=== PATIENT | male | born 1950 | race Caucasian/White ===

== ENCOUNTER → 2018-01-11 | Outpatient (CLI) | payer MEDICARE ==
[~2018-01-11] MED LIST: ALPR0.5T PO; BICA50TA4 PO; CALC-656 PO; CIPR500S2 PO; CRAN450C PO; HYDR-3876 PO; HYOS0.1216 PO; LACT1CAP62 PO; LISD40CA3 PO; MULT1CAP27 PO; PHEN200T27 PO; SAW/1TAB2 PO; TAMS0.4C9 PO; ZOLP10TA5 PO; [UNRECOGNIZED DRUG - CODE] PO
== END ==
LOC: CR 14:09
PROVIDERS: ATTEND Nurse Practitioner Family
DX: J44.9 Chronic obstructive pulmonary disease, unspecified (principal)

== ENCOUNTER 2018-01-24 21:01 | Outpatient (CLI) | payer MEDICARE | END 2018-01-25 06:39 | disposition home or self-care (01) | LOC: SLEEP 21:01 | PROVIDERS: ATTEND Nurse Practitioner Family | DX: G47.10 Hypersomnia, unspecified (principal) | CPT/HCPCS: 95811 ==

== ENCOUNTER → 2018-04-04 | Outpatient (CLI) | payer MEDICARE ==
[~2018-04-04] MED LIST changes: +ALLO300T2 PO; +ASCO500C17 PO; +BICA50TA PO; +CALC-6 PO; +CETI10TA17 PO; +CHOL5000 PO; +DICL75TA2 PO; +FLUT1AER IH; +MELO7.5T46 PO; +OMEG1CAP58 PO; +RT-ALBUINH IH; +RT-ALBUTEROL SULF 2.5 MG/3 ML PRE-MIX VIAL INH ONE; +TAMS0.4C2 PO; +ZOLP5TAB7 PO
== END ==
LOC: RT 09:24
PROVIDERS: ATTEND Nurse Practitioner Family
DX: R91.1 Solitary pulmonary nodule (principal); J44.9 Chronic obstructive pulmonary disease, unspecified
CPT/HCPCS: 94060; 94726; 94729

== ENCOUNTER → 2018-04-12 | Outpatient (CLI) | payer MEDICARE ==
[~2018-04-12] MED LIST changes: -RT-ALBUTEROL SULF 2.5 MG/3 ML PRE-MIX VIAL INH ONE
[2018-04-12 12:33] LABS: BASOPHILS % (AUTO) 1 % (0-10); EOSINOPHILS # (AUTO) 0.3 10^3/uL (0.0-0.3); EOSINOPHILS % (AUTO) 4 % (0-10); HEMATOCRIT 44 % (40-54); HEMOGLOBIN 15.3 G/DL (13.3-17.7); LYMPHOCYTES # (AUTO) 1.3 X 10^3 (1.0-4.0); LYMPHOCYTES % (AUTO) 15 % (12-44); MEAN CORPUSCULAR HEMOGLOBIN 30 PG (25-34); MEAN CORPUSCULAR HGB CONC 35 G/DL (32-36); MEAN CORPUSCULAR VOLUME 85 FL (80-99); MEAN PLATELET VOLUME 8.4 FL (7.4-10.4); MONOCYTES # (AUTO) 0.8 X 10^3 (0.0-1.0); MONOCYTES % (AUTO) 10 % (0-12); NEUTROPHILS # (AUTO) 5.8 X 10^3 (1.8-7.8); NEUTROPHILS % (AUTO) 70 % (42-75); PLATELET COUNT 301 10^3/uL (130-400); RED BLOOD COUNT 5.12 10^6/uL (4.35-5.85); RED CELL DISTRIBUTION WIDTH 14.4 % (10.0-14.5); WHITE BLOOD COUNT 8.2 10^3/uL (4.3-11.0)
[2018-04-12 12:50] LABS: ALANINE AMINOTRANSFERASE 17 U/L (0-55); ALBUMIN 4.2 GM/DL (3.2-4.5); ALKALINE PHOSPHATASE 49 U/L (40-136); BILIRUBIN,TOTAL 0.6 MG/DL (0.1-1.0); BUN/CREATININE RATIO 21; CALCIUM 9.5 MG/DL (8.5-10.1); CARBON DIOXIDE 22 MMOL/L (21-32); CHLORIDE 107 MMOL/L (98-107); CREATININE SERUM 0.81 MG/DL (0.60-1.30); GFR ESTIMATED > 60; GLUCOSE 83 MG/DL (70-105); POTASSIUM 4.2 MMOL/L (3.6-5.0); SODIUM 138 MMOL/L (135-145); TOTAL PROTEIN 7.2 GM/DL (6.4-8.2)
[2018-04-12 12:56] LABS: ERYTHROCYTE SEDIMENTATION RATE 8 MM/HR (0-30)
== END ==
LOC: LAB 12:10
PROVIDERS: ATTEND Nurse Practitioner Family
DX: J44.9 Chronic obstructive pulmonary disease, unspecified (principal)
CPT/HCPCS: 36415; 80053; 82164; 85025; 85652; 86021; 86038; 86039; 86430

== ENCOUNTER 2018-04-25 05:33 | Outpatient (CLI) | payer MEDICARE ==
[~2018-04-25] VITALS: Ht 170.2 cm; Wt 90.7 kg
[~2018-04-25 05:33] MED LIST changes: -ALLO300T2 PO; -ASCO500C17 PO; -BICA50TA PO; -CALC-6 PO; -CETI10TA17 PO; -CHOL5000 PO; -DICL75TA2 PO; -FLUT1AER IH; -MELO7.5T46 PO; -OMEG1CAP58 PO; -RT-ALBUINH IH; -TAMS0.4C2 PO; -ZOLP5TAB7 PO
[2018-04-25] MEDS ORDERED: TAMS0.4C2 PO (15:50)
[2018-04-25] MEDS ORDERED: BICA50TA PO (15:50)
[2018-04-25] MEDS ORDERED: ZOLP5TAB7 PO (15:50)
[2018-04-25] MEDS ORDERED: MULT1CAP27 PO (15:50)
[2018-04-25] MEDS ORDERED: CALC-6 PO (15:50)
[2018-04-25] MEDS ORDERED: FLUT1AER IH (15:54)
[2018-04-25] MEDS ORDERED: ASCO500C17 PO (15:54)
[2018-04-25] MEDS ORDERED: MELO7.5T46 PO (15:54)
[2018-04-25] MEDS ORDERED: ALLO300T2 PO (15:54)
[2018-04-25] MEDS ORDERED: RT-ALBUINH IH (15:54)
[2018-04-25] MEDS ORDERED: CHOL5000 PO (15:54)
[2018-04-25] MEDS ORDERED: CETI10TA17 PO (15:54)
[2018-04-25] MEDS ORDERED: DICL75TA2 PO (15:54)
[2018-04-25] MEDS ORDERED: OMEG1CAP58 PO (15:54)
== END 2018-04-25 15:55 ==
LOC: PREOP 05:33
PROVIDERS: ATTEND Internal Medicine Critical Care Medicine
DX: Z01.818 Encounter for other preprocedural examination (principal)

== ENCOUNTER → 2018-06-13 | Outpatient (CLI) | payer MEDICARE ==
[~2018-06-13] MED LIST changes: +ALLO300T2 PO; +ASCO500C17 PO; +BICA50TA5 PO; +CALC-6 PO; +CATHETER FLUSH 10 ML SYR IV PRN; +CETI10TA17 PO; +CHOL5000 PO; +DICL75TA2 PO; +FLUT1AER IH; +IOHEXOL 350 MG/ML 150 ML (OMNIPAQUE 350) VIAL IV ONE; +MELO7.5T46 PO; +NS 250 ML (IVPB) BAG IV ONE; +OMEG1CAP58 PO; +RECEIVED CONTRAST (Hold Metformin) IV SCH; +RT-ALBUINH IH; +TAMS0.4C2 PO; +ZOLP5TAB7 PO
[2018-06-13 11:44] LABS: BUN/CREATININE RATIO 19; CREATININE SERUM 0.86 MG/DL (0.60-1.30); GFR ESTIMATED > 60
--- NOTE | 2018-06-13 15:45 | Diagnostic Imaging Report ---
PROCEDURE: CT angiography of the chest with contrast. TECHNIQUE: Multiple contiguous axial images were obtained through the chest after uneventful bolus administration of intravenous contrast. Reconstructed CTA MIP acquisitions were also performed. INDICATION: Pulmonary fibrosis, shortness of breath, history of adenoid cystic carcinoma. FINDINGS: The previous CT chest exam of 04/04/2018 noted interstitial fibrotic changes involving both lungs as well as bilateral lower lobe bronchiectasis. On this exam, those chronic pulmonary changes are again evident and do not seem to have progressed. There is no abnormal density involving the lungs that would suggest an area of acute pneumonia/atelectasis superimposed on the underlying chronic pulmonary disease. There is no sign of a pleural effusion either. The heart size is not enlarged and stable when compared to the prior exam. There is no defect within the pulmonary arteries to indicate a pulmonary embolus. The aorta is not abnormally dilated, and there is no sign of a dissection. The previous study did note a 9 mm pretracheal lymph node. That finding is again evident and no different. There is no mediastinal or hilar adenopathy noted. The thyroid gland is unremarkable. There is increased density in both retroareolar regions. This finding is similar to the prior exam and most likely represents gynecomastia. The sections through the upper abdomen fail to show any sign of an acute abnormality. The bone windows are unremarkable for a fracture or for a destructive lesion. IMPRESSION: 1. There is no evidence for an acute cardiopulmonary abnormality. In particular, there is no sign of a dissection or of a pulmonary embolus. 2. The chronic pulmonary changes seen on the prior study are again evident and no different. 3. The increased density in the retroareolar regions does suggest gynecomastia. Dictated by: Dictated on workstation # [id number]
== END ==
LOC: CARD 11:06
PROVIDERS: ATTEND Nurse Practitioner Family
DX: J98.4 Other disorders of lung (principal); J43.9 Emphysema, unspecified; A49.01 Methicillin susceptible Staphylococcus aureus infection, unspecified site; R00.1 Bradycardia, unspecified; R42 Dizziness and giddiness
CPT/HCPCS: 36415; 71275; 82565; 84520; 93306

== ENCOUNTER 2018-07-05 11:19 | Outpatient (RCR) | payer MEDICARE ==
[~2018-07-05 11:19] MED LIST changes: -CATHETER FLUSH 10 ML SYR IV PRN; -IOHEXOL 350 MG/ML 150 ML (OMNIPAQUE 350) VIAL IV ONE; -NS 250 ML (IVPB) BAG IV ONE; -RECEIVED CONTRAST (Hold Metformin) IV SCH
== END 2018-07-20 | disposition home or self-care (01) ==
LOC: CARD 11:19
PROVIDERS: ATTEND Internal Medicine Interventional Cardiology
DX: J44.9 Chronic obstructive pulmonary disease, unspecified (principal); R42 Dizziness and giddiness; R55 Syncope and collapse; E66.9 Obesity, unspecified; G47.33 Obstructive sleep apnea (adult) (pediatric); R06.02 Shortness of breath
CPT/HCPCS: 93225; 93226

== ENCOUNTER → 2018-07-25 | Outpatient (CLI) | payer MEDICARE ==
--- NOTE | 2018-07-25 09:45 | Diagnostic Imaging Report ---
PROCEDURE: CT chest without contrast. TECHNIQUE: Multiple contiguous axial images were obtained through the chest without the use of intravenous contrast. INDICATION: Restrictive lung disease and COPD. Comparison is made to study of 06/13/2018. FINDINGS: Similar to the previous study, there are prominent interstitial markings with a subpleural predominance. Mild basilar atelectasis is seen in the lower lobes similar to the previous examination. Mildly prominent mediastinal lymph nodes are also stable. There is no evidence of focal consolidation or significant pleural or pericardial fluid. IMPRESSION: Emphysema and predominantly peripheral fibrotic change in both lungs. No new abnormality or significant adverse development is appreciated. Dictated by: Dictated on workstation # [id number]
== END ==
LOC: RAD 09:07
PROVIDERS: ATTEND Nurse Practitioner Family
DX: J43.9 Emphysema, unspecified (principal); J98.4 Other disorders of lung; A49.01 Methicillin susceptible Staphylococcus aureus infection, unspecified site
CPT/HCPCS: 71250

== ENCOUNTER → 2018-07-26 | Day surgery (SDC) | payer MEDICARE ==
[~2018-07-26] VITALS: Ht 170.2 cm; Wt 99.8 kg
[~2018-07-26] MED LIST changes: +LIDOCAINE 1% INJ 20 ML 20 ML VIAL ONE
[2018-07-26 09:27] VITALS: BP 143/72
--- NOTE | 2018-07-26 10:19 | Implantation of Loop Monitor ---
Implant of Loop Monitior PROCEDURE PHYSICIAN: Simba Brito MD IMPLANTATION OF LOOP MONITOR REPORT DATE OF PROCEDURE: 07/26/18 ATTENDING PHYSICIAN: Dr. Marin Brito. REFERRING PHYSICIAN: PERFORMING PHYSICIAN: Dr. Marin Brito. INDICATION: Long-term surveillance of atrial fibrillation, Syncope. PREOP DIAGNOSIS: Long-term surveillance of atrial fibrillation, Syncope POSTOP DIAGNOSIS: Atrial fibrillation, s/p implantation of loop recorder. PROCEDURE DETAILS: The patient is a 67 male with history of paroxysmal atrial fibrillation requiring long-term surveillance. Therefore implantable loop recorder was discussed and agreed with the patient. Informed consent was taken. All risks and complications were discussed at length. The patient was draped and prepped in the usual sterile fashion. Local anesthesia was lidocaine, which was given in the substernal area close to the 4th intercostal space. Loop monitor was implanted according to the protocol. Steri-Strips were placed at the end of the procedure. There were no complications and the patient tolerated the procedure well. ANESTHESIA: Local anesthesia with lidocaine. COMPLICATIONS: None CONTRAST/FLUOROSCOPY: None CONCLUSION: 1. Successful implantation of loop monitor for atrial fibrillation. 2. No complication and the patient tolerated the procedure well. Simba rBito MD, [facility], CCDS Cardiac Electrophysiology Kiera BRITO MD Jul 26, 2018 10:19 am
[2018-07-26 10:48] VITALS: BP 121/71
--- OUTSIDE RECORDS SUMMARY | 2018-07-26 14:38 | XMS REPORT | Clinical Summary ---
Author Author [facility] Organization [facility] Address Unknown Phone Unavailable Care Team Providers Care Title Assistant Name Role Phone SamanthaRita PCP Unavailable Silvia Hall MD Unavailable Source Comments Some departments are not documenting in the electronic medical record. If you do not see the information that you expected, contact Release of Information in the Health Information Management department at [phone] for further assistance in locating additional records.[facility] Allergies No Known Allergies Current Medications Prescription Sig. Disp. Refills Start End Date Status Date allopurinol (ZYLOPRIM) Take 300 mg by mouth Active 300 mg tablet daily. tamsulosin (FLOMAX) 0.4 Take 0.4 mg by mouth Active mg capsule daily. diclofenac potassium Take 50 mg by mouth daily Active (CATAFLAM) 50 mg Tab as needed. ibuprofen (MOTRIN) 800 mg Take 800 mg by mouth Active tablet every 6 hours as needed. cyclobenzaprine Take 5 mg by mouth three Active (FLEXERIL) 5 mg tablet times daily. Cranberry Extract 300 mg Take by mouth. Active Tab RESVERATROL PO Take 60 mg by mouth Active daily. CETIRIZINE HCL (ZYRTEC Take by mouth as Needed. Active PO) albuterol (PROAIR HFA) 90 Inhale 2 Puffs by mouth Active mcg/actuation inhaler every 6 hours as needed. LACTOBACILLUS ACIDOPHILUS Take by mouth. Active (ACIDOPHOLUS PO) Active Problems Problem Noted Date Prostate cancer (HCC) 06/26/2013 Overview: PSA (Nov 2012)=1.9 ng/mL. PNBx (06/26/2013): cT2c; (L) [place] 5+5=10, 4/6 cores, 5-80%; (L) [place] 5+4=9, 1/6 cores, 25%; (R) [place] 5+5=10, 2/6 cores, 40-90%, (R) [place] 4+5=9, 4/6 cores, 5-90%; Dr. Mclaughlin. CT Scan (07/08/2013): No evidence of mets. Bone Scan (07/08/2013): No evidence of bone mets. L ast Assessment & Plan: I had an extensive consultation with the patient today reviewing the spectrum of prostate cancer treatment options, including the pros and cons and risks and benefits of each. Surgery (RRP, RALP) Radiation (XRT, BrachyTx) Cryoablation HIFU Androgen Deprivation Tx (ADT) Active surveillance () ED (erectile dysfunction) Overview: (+)baseline ED prior to Prostate Cancer tx. Family History Medical History Relation Name Comments Cancer Other Neurologic Disorder Other Relation Name Status Comments Other Social History Tobacco Use Types Packs/Day Years Used Date Never Smoker Smokeless Tobacco: Former Chew User Alcohol Use Drinks/Week oz/Week Comments No Sex Assigned at Date Recorded Not on file Last Filed Vital Signs Vital Sign Reading Time Taken Blood Pressure 130/78 08/14/2013 1:02 PM CDT Pulse 66 08/14/2013 1:02 PM CDT Temperature - - Respiratory Rate - - Oxygen Saturation - - Inhaled Oxygen - - Concentration Weight 99.6 kg (219 lb 9.6 oz) 08/14/2013 1:02 PM CDT Height 170.2 cm (5' 7") 08/14/2013 1:02 PM CDT Body Mass Index 34.39 08/14/2013 1:02 PM CDT Plan of Treatment Health Maintenance Due Date Last Done Comments HEPATITIS C SCREENING 1950 PHYSICAL (COMPREHENSIVE) 1957 EXAM PERTUSSIS VACCINE 1961 TETANUS VACCINE 1967 COLORECTAL CANCER 2000 SCREENING SHINGLES RECOMBINANT 2000 VACCINE (1 of 2) PNEUMONIA (PCV13/PPSV23) 2015 VACCINES (1 of 2 - PCV13) INFLUENZA VACCINE 08/20/2018 Results Not on filefrom Last 3 Months
== END | disposition home or self-care (01) ==
LOC: CATH 09:13
PROVIDERS: ATTEND Internal Medicine Interventional Cardiology
DX: I48.0 Paroxysmal atrial fibrillation (principal); R55 Syncope and collapse; J45.909 Unspecified asthma, uncomplicated; J84.10 Pulmonary fibrosis, unspecified; J44.9 Chronic obstructive pulmonary disease, unspecified; G47.33 Obstructive sleep apnea (adult) (pediatric); E66.9 Obesity, unspecified; Z68.34 Body mass index [BMI] 34.0-34.9, adult; Z87.891 Personal history of nicotine dependence; Z79.899 Other long term (current) drug therapy
CPT/HCPCS: 33282

== ENCOUNTER → 2018-12-25 | Outpatient (CLI) | payer MEDICARE ==
[~2018-12-25] MED LIST changes: -LIDOCAINE 1% INJ 20 ML 20 ML VIAL ONE
--- NOTE | 2018-12-25 17:22 | Diagnostic Imaging Report ---
INDICATION: Mucoepidermoid carcinoma of the hard palate. TIME OF EXAM: 11:10 AM COMPARISON: Correlation is made with prior study from 05/16/2018. FINDINGS: Cardiac monitoring device overlies the heart. There are some mild interstitial changes in the right mid lung which may be chronic scarring. No new parenchymal opacity is seen. No effusion or pneumothorax is identified. IMPRESSION: Stable chest. No acute feature is detected. Dictated by: Dictated on workstation # [id number]
== END ==
LOC: RAD 10:34
PROVIDERS: ATTEND Otolaryngology Otolaryngology/Facial Plastic Surgery
DX: C05.0 Malignant neoplasm of hard palate (principal)
CPT/HCPCS: 36415; 71045; 84443

== ENCOUNTER → 2019-01-24 | Outpatient (CLI) | payer MEDICARE | LOC: RAD FS 15:03 | PROVIDERS: ATTEND Family Medicine | DX: N20.0 Calculus of kidney (principal); Z53.8 Procedure and treatment not carried out for other reasons ==

== ENCOUNTER → 2019-01-24 | Outpatient (CLI) | payer MEDICARE ==
--- NOTE | 2019-01-24 16:47 | Diagnostic Imaging Report ---
PROCEDURE: CT urinary tract, rule out kidney stone. TECHNIQUE: Multiple contiguous axial images were obtained through the abdomen and pelvis without the use of intravenous contrast. INDICATION: Left-sided flank pain. Patient has prior history of kidney stones. FINDINGS: Imaging through the lung bases does show some interstitial fibrotic scarring. No discrete liver mass is identified. The gallbladder is unremarkable. No biliary ductal dilatation is seen. The pancreas and spleen are unremarkable. No adrenal mass is identified. The right kidney is unremarkable. Left kidney does contain a nonobstructing calculus in the lower pole measuring 7 mm. There is a tiny adjacent calculus in the lower pole as well. Left ureter is prominent. Dilated left ureter is traced into the pelvis. There is an approximately 2 to 3 mm calculus located at the left UVJ or just entering the bladder. No other bladder calculi are seen. Bowel gas pattern is unremarkable. There appears to be diverticulum arising from the duodenum. There is no ascites. There appear to be diverticula of the sigmoid colon but no evidence of acute diverticulitis. IMPRESSION: 1. Left-sided nonobstructing renal calculi. There is also a 2 to 3 mm calculus at the left UVJ or just entering the bladder with mild left hydroureteronephrosis. No other significant abnormality is seen. Dictated by: Dictated on workstation # [id number]
== END ==
LOC: RAD FS 14:38
PROVIDERS: ATTEND Family Medicine
DX: N13.2 Hydronephrosis with renal and ureteral calculous obstruction (principal)
CPT/HCPCS: 74176

== ENCOUNTER 2019-03-07 09:48 | Outpatient (RCR) | payer MEDICARE ==
--- NOTE | 2019-02-28 09:06 | Diagnostic Imaging Report ---
INDICATION: Nephrolithiasis. FINDINGS: The bowel gas pattern is nonspecific. There is stone projected over the left kidney. There is a persistent 3 mm calcification near the left UVJ. There are no other abnormal calcifications. There are mild degenerative changes in the spine. IMPRESSION: Persistent 3 mm calcification near the left UVJ. Persistent stone in this region cannot be excluded. 5 mm nonobstructing stone projected over the left kidney. Dictated by: Dictated on workstation # [id number]
[2019-03-11] MEDS ORDERED: CITA10TA7 PO (14:24)
[2019-03-11] MEDS ORDERED: TAMS0.4C98 PO (14:24)
[2019-03-11] MEDS ORDERED: MELO15TA39 PO (14:24)
[2019-03-13] MEDS ORDERED: HYDR-3870 PO (10:25)
[2019-03-13] MEDS ORDERED: CIPR500S2 PO (10:25)
== END 2019-05-29 | disposition home or self-care (01) ==
LOC: RAD FS 09:48
PROVIDERS: ATTEND Urology
DX: N20.2 Calculus of kidney with calculus of ureter (principal)
CPT/HCPCS: 36415; 74018; 82140; 82340; 82507; 82570; 83735; 83945; 83986; 84105; 84133; 84300; 84392; 84560

== ENCOUNTER 2019-03-11 05:46 | Outpatient (CLI) | payer MEDICARE ==
[~2019-03-11] VITALS: Ht 170.2 cm; Wt 90.7 kg
[2019-03-11] MEDS ORDERED: MELO15TA39 PO (14:24)
[2019-03-11] MEDS ORDERED: TAMS0.4C98 PO (14:24)
[2019-03-11] MEDS ORDERED: CITA10TA7 PO (14:24)
== END 2019-03-11 14:35 | disposition home or self-care (01) ==
LOC: PREOP 05:46
PROVIDERS: ATTEND Urology
DX: Z01.818 Encounter for other preprocedural examination (principal)

== ENCOUNTER 2019-03-13 06:58 | Day surgery (SDC) | payer MEDICARE ==
[~2019-03-13] VITALS: Ht 170.2 cm; Wt 90.7 kg
[2019-03-13] VITALS (9 sets, daily range): BP systolic 93–137; BP diastolic 61–76
[~2019-03-13 06:58] MED LIST changes: +CITA10TA7 PO; +MELO15TA39 PO; +TAMS0.4C98 PO
--- OUTSIDE RECORDS SUMMARY | 2019-03-13 07:02 | XMS REPORT | Continuity of Care Document ---
Author Organization Unknown Address Unknown Allergies Active Description Code Type Severity Reaction Onset Reported/Identified Relationship to Patient Clinical Status Yes No Known Drug Allergies [id number] Drug Allergy Unknown N/A 03/11/2019 Medications There is no data. Problems Date Dx Coded Attending Type Code Diagnosis Diagnosed By 10/24/2013 HARI TOVAR, DIYA Ronquillo Ot 185 MALIGN NEOPL PROSTATE 02/26/2014 DIYA NORIEGA MD, Ot 185 MALIGN NEOPL PROSTATE 02/26/2014 DIYA NORIEGA MD, Ot V58.0 ENCOUNTER FOR RADIOTHERAPY 01/05/2015 SHANITA GUPTA MD Ot 185 01/05/2015 SHANITA GUPTA MD Ot 562.10 01/05/2015 DIYA NORIEGA MD, Ot 185 01/05/2015 SHANITA GUPTA MD Ot 592.1 01/15/2015 SHANITA GUPTA MD Ot 592.1 01/21/2015 SHANITA GUPTA MD Ot 592.1 CALCULUS OF URETER 02/12/2015 Ot 592.1 02/12/2015 Ot V45.89 03/03/2015 Ot 592.1 03/03/2015 Ot V72.84 01/11/2018 SHERRON DIAMOND APRN Ot G47.33 OBSTRUCTIVE SLEEP APNEA (ADULT) (PEDIATR 01/12/2018 SHANITA GUPTA MD Ot 185 MALIGN NEOPL PROSTATE 01/12/2018 SHANITA GUPTA MD Ot 562.10 DIVERTICULOSIS COLON (W/O MENT OF HEMORR 01/12/2018 DIYA NORIEGA MD Ot 185 MALIGN NEOPL PROSTATE 01/12/2018 SHANITA GUPTA MD Ot 592.1 CALCULUS OF URETER 01/12/2018 SHANITA GUPTA MD Ot 592.1 CALCULUS OF URETER 01/12/2018 SHANITA GUPTA MD Ot 592.1 CALCULUS OF URETER 01/12/2018 SHANITA GUPTA MD Ot V72.84 EXAM PRE-OPERATIVE NOS 01/12/2018 CANDY TOVAR, SHANITA Bowling Ot V74.8 SCREEN-BACTERIAL DIS NEC 01/12/2018 Ot 592.1 CALCULUS OF URETER 01/12/2018 Ot V72.84 EXAM PRE- OPERATIVE NOS 01/12/2018 Ot 592.1 CALCULUS OF URETER 01/12/2018 Ot V45.89 POSTSURGICAL STATES NEC 01/12/2018 SHERRON DIAMOND APRN Ot G47.33 OBSTRUCTIVE SLEEP APNEA (ADULT) (PEDIATR 01/16/2018 SHERRON DIAMNOD APRN Ot J44.9 CHRONIC OBSTRUCTIVE PULMONARY DISEASE, U 01/22/2018 SHERRON DIAMOND APRN Ot G47.33 OBSTRUCTIVE SLEEP APNEA (ADULT) (PEDIATR 01/22/2018 CANDY TOVAR, SHANITA Bowling Ot 185 MALIGN NEOPL PROSTATE 01/22/2018 CANDY TOVAR, SHANITA Bowling Ot 562.10 DIVERTICULOSIS COLON (W/O MENT OF HEMORR 01/22/2018 DIYA NORIEGA MD Ot 185 MALIGN NEOPL PROSTATE 01/22/2018 CANDY TOVAR, SHANITA Bowling Ot 592.1 CALCULUS OF URETER 01/22/2018 CANDY TOVAR, SHANITA Bowling Ot 592.1 CALCULUS OF URETER 01/22/2018 CANDY TOVAR, SHANITA oBwling Ot 592.1 CALCULUS OF URETER 01/22/2018 CANDY TOVAR, SHANITA Bowling Ot V72.84 EXAM PRE-OPERATIVE NOS 01/22/2018 CANDY TOVAR, SHANITA Bowling Ot V74.8 SCREEN-BACTERIAL DIS NEC 01/22/2018 Ot 592.1 CALCULUS OF URETER 01/22/2018 Ot V72.84 EXAM PRE- OPERATIVE NOS 01/22/2018 Ot 592.1 CALCULUS OF URETER 01/22/2018 Ot V45.89 POSTSURGICAL STATES NEC 01/22/2018 SHERRON DIAMOND APRN Ot J44.9 CHRONIC OBSTRUCTIVE PULMONARY DISEASE, U 01/22/2018 SHERRON DIAMOND APRN Ot G47.33 OBSTRUCTIVE SLEEP APNEA (ADULT) (PEDIATR 01/25/2018 SHERRON DIAMOND APRN Ot G47.10 HYPERSOMNIA, UNSPECIFIED 01/25/2018 SHERRON DIAMOND APRN Ot G47.33 OBSTRUCTIVE SLEEP APNEA (ADULT) (PEDIATR 01/25/2018 SHERRON DIAMOND LOCKSTITCH BACK MAKER Ot G47.61 PERIODIC LIMB MOVEMENT DISORDER 01/25/2018 SHERRON DIAMOND APRN Ot G47.10 HYPERSOMNIA, UNSPECIFIED 01/30/2018 SHERRON DIAMOND LOCKSTITCH BACK MAKER Ot G47.10 HYPERSOMNIA, UNSPECIFIED 01/30/2018 SHERRON DIAMOND LOCKSTITCH BACK MAKER Ot G47.33 OBSTRUCTIVE SLEEP APNEA (ADULT) (PEDIATR 01/30/2018 SHERRON DIAMOND APRN Ot G47.61 PERIODIC LIMB MOVEMENT DISORDER 04/05/2018 SHERRON DIAMOND LOCKSTITCH BACK MAKER Ot J44.9 CHRONIC OBSTRUCTIVE PULMONARY DISEASE, U 04/05/2018 SHERRON DIAMOND APRN Ot R91.1 SOLITARY PULMONARY NODULE 04/13/2018 SHERRON DIAMOND APRN Ot J44.9 CHRONIC OBSTRUCTIVE PULMONARY DISEASE, U 04/24/2018 SHERRON DIAMOND APRN Ot J44.9 CHRONIC OBSTRUCTIVE PULMONARY DISEASE, U 04/24/2018 SHERRON DIAMOND APRN Ot R91.1 SOLITARY PULMONARY NODULE 04/25/2018 MAY OTERO DO Ot Z01.818 ENCOUNTER FOR OTHER PREPROCEDURAL EXAMIN 04/27/2018 MAY OTERO DO Ot Z01.818 ENCOUNTER FOR OTHER PREPROCEDURAL EXAMIN 05/02/2018 SHERRON DIAMOND APRN Ot J44.9 CHRONIC OBSTRUCTIVE PULMONARY DISEASE, U 05/03/2018 SHERRON DIAMOND APRN Ot J44.9 CHRONIC OBSTRUCTIVE PULMONARY DISEASE, U 05/03/2018 SHERRON DIAMOND APRN Ot R91.1 SOLITARY PULMONARY NODULE 05/16/2018 MAY OTERO DO Ot G47.10 HYPERSOMNIA, UNSPECIFIED 05/16/2018 MAY OTERO DO Ot G47.33 OBSTRUCTIVE SLEEP APNEA (ADULT) (PEDIATR 05/16/2018 MAY OTERO DO Ot J30.2 OTHER SEASONAL ALLERGIC RHINITIS 05/16/2018 MAY OTERO DO Ot J44.9 CHRONIC OBSTRUCTIVE PULMONARY DISEASE, U 05/16/2018 MAY OTERO DO Ot J84.9 INTERSTITIAL PULMONARY DISEASE, UNSPECIF 05/16/2018 MAY OTERO DO Ot Z79.899 OTHER NURSING HOME (CURRENT) DRUG THERAPY 05/16/2018 MAY OTERO DO M Ot Z87.442 PERSONAL HISTORY OF URINARY CALCULI 05/17/2018 MAY OTERO DO Ot G47.10 HYPERSOMNIA, UNSPECIFIED 05/17/2018 MAY OTERO DO M Ot G47.33 OBSTRUCTIVE SLEEP APNEA (ADULT) (PEDIATR 05/17/2018 MAY OTERO DO M Ot J30.2 OTHER SEASONAL ALLERGIC RHINITIS 05/17/2018 MAY OTERO DO M Ot J44.9 CHRONIC OBSTRUCTIVE PULMONARY DISEASE, U 05/17/2018 MAY OTERO DO M Ot J84.9 INTERSTITIAL PULMONARY DISEASE, UNSPECIF 05/17/2018 LEONARDO OTERO DOSON M Ot Z79.899 OTHER PUNCH BOX TENDER (CURRENT) DRUG THERAPY 05/17/2018 MAY OTERO DO M Ot Z87.442 PERSONAL HISTORY OF URINARY CALCULI 05/18/2018 MAY OTERO DO M Ot G47.10 HYPERSOMNIA, UNSPECIFIED 05/18/2018 MAY OTERO DO M Ot G47.33 OBSTRUCTIVE SLEEP APNEA (ADULT) (PEDIATR 05/18/2018 MAY OTERO DO M Ot J30.2 OTHER SEASONAL ALLERGIC RHINITIS 05/18/2018 MAY OTERO DO M Ot J44.9 CHRONIC OBSTRUCTIVE PULMONARY DISEASE, U 05/18/2018 MAY OTERO DO M Ot J84.9 INTERSTITIAL PULMONARY DISEASE, UNSPECIF 05/18/2018 MAY OTERO DO M Ot Z79.899 OTHER NURSING HOME (CURRENT) DRUG THERAPY 05/18/2018 MAY OTERO DO M Ot Z87.442 PERSONAL HISTORY OF URINARY CALCULI 06/13/2018 CANDY TOVAR, SHANITA Bowling Ot 185 MALIGN NEOPL PROSTATE 06/13/2018 SHANITA GUPTA MD Ot 562.10 DIVERTICULOSIS COLON (W/O MENT OF HEMORR 06/13/2018 HARI TOVAR, DIYA Ronquillo Ot 185 MALIGN NEOPL PROSTATE 06/13/2018 SHANITA GUPTA MD Ot 592.1 CALCULUS OF URETER 06/13/2018 SHANITA GUPTA MD Ot 592.1 CALCULUS OF URETER 06/13/2018 SHANITA GUPTA MD Ot 592.1 CALCULUS OF URETER 06/13/2018 SHANITA GUPTA MD Ot V72.84 EXAM PRE-OPERATIVE NOS 06/13/2018 CANDY TOVAR, SHANITA Bowling Ot V74.8 SCREEN-BACTERIAL DIS NEC 06/13/2018 Ot 592.1 CALCULUS OF URETER 06/13/2018 Ot V72.84 EXAM PRE- OPERATIVE NOS 06/13/2018 Ot 592.1 CALCULUS OF URETER 06/13/2018 Ot V45.89 POSTSURGICAL STATES NEC 06/13/2018 SHERRON DIAMOND APRN Ot J44.9 CHRONIC OBSTRUCTIVE PULMONARY DISEASE, U 06/13/2018 SHERRON DIAMOND APRN Ot J44.9 CHRONIC OBSTRUCTIVE PULMONARY DISEASE, U 06/13/2018 SHERRON DIAMOND APRN Ot R91.1 SOLITARY PULMONARY NODULE 06/13/2018 SHERRON DIAMOND APRN Ot J44.9 CHRONIC OBSTRUCTIVE PULMONARY DISEASE, U 07/13/2018 Kiera TAYLOR MD Ot E66.9 OBESITY, UNSPECIFIED 07/13/2018 Kiera TAYLOR MD Ot G47.33 OBSTRUCTIVE SLEEP APNEA (ADULT) (PEDIATR 07/13/2018 Kiera TAYLOR MD Ot J44.9 CHRONIC OBSTRUCTIVE PULMONARY DISEASE, U 07/13/2018 Kiera TAYLOR MD Ot R06.02 SHORTNESS OF BREATH 07/13/2018 Kiera TAYLOR MD Ot R42 DIZZINESS AND GIDDINESS 07/13/2018 Kiera TAYLOR MD Ot R55 SYNCOPE AND COLLAPSE 07/20/2018 Kiera TAYLOR MD Ot E66.9 OBESITY, UNSPECIFIED 07/20/2018 Kiera TAYLOR MD Ot G47.33 OBSTRUCTIVE SLEEP APNEA (ADULT) (PEDIATR 07/20/2018 Kiera TAYLOR MD Ot J44.9 CHRONIC OBSTRUCTIVE PULMONARY DISEASE, U 07/20/2018 Kiera TAYLOR MD Ot R06.02 SHORTNESS OF BREATH 07/20/2018 Kiera TAYLOR MD Ot R42 DIZZINESS AND GIDDINESS 07/20/2018 Kiera TAYLOR MD Ot R55 SYNCOPE AND COLLAPSE 07/20/2018 Kiera TAYLOR MD Ot E66.9 OBESITY, UNSPECIFIED 07/20/2018 KHKiera PORTILLO MD, Ot G47.33 OBSTRUCTIVE SLEEP APNEA (ADULT) (PEDIATR 07/20/2018 Kiera TAYLOR MD Ot J44.9 CHRONIC OBSTRUCTIVE PULMONARY DISEASE, U 07/20/2018 Kiera TAYLOR MD Ot R06.02 SHORTNESS OF BREATH 07/20/2018 Kiera TAYLOR MD Ot R42 DIZZINESS AND GIDDINESS 07/20/2018 Kiera TAYLOR MD Ot R55 SYNCOPE AND COLLAPSE 07/26/2018 SHERRON DIAMOND APRN Ot A49.01 METHICILLIN SUSCEP STAPH INFECTION, UNSP 07/26/2018 SHERRON DIAMOND APRN Ot J43.9 EMPHYSEMA, UNSPECIFIED 07/26/2018 SHERRON DIAMOND APRN Ot J98.4 OTHER DISORDERS OF LUNG 07/31/2018 Kiera TAYLOR MD Ot E66.9 OBESITY, UNSPECIFIED 07/31/2018 Kiera TAYLOR MD Ot G47.33 OBSTRUCTIVE SLEEP APNEA (ADULT) (PEDIATR 07/31/2018 Kiera TAYLOR MD Ot I48.0 PAROXYSMAL ATRIAL FIBRILLATION 07/31/2018 Kiera TAYLOR MD Ot J44.9 CHRONIC OBSTRUCTIVE PULMONARY DISEASE, U 07/31/2018 Kiera TAYLOR MD Ot J45.909 UNSPECIFIED ASTHMA, UNCOMPLICATED 07/31/2018 Kiera TAYLOR MD Ot J84.10 PULMONARY FIBROSIS, UNSPECIFIED 07/31/2018 Kiera TAYLOR MD Ot R55 SYNCOPE AND COLLAPSE 07/31/2018 Kiera TAYLOR MD Ot Z68.34 BODY MASS INDEX (BMI) 34.0-34.9, ADULT 07/31/2018 Kiera TAYLOR MD Ot Z79.899 OTHER PUNCH BOX TENDER (CURRENT) DRUG THERAPY 07/31/2018 Kiera TAYLOR MD Ot Z87.891 PERSONAL HISTORY OF NICOTINE DEPENDENCE 08/10/2018 Kiera TAYLOR MD Ot E66.9 OBESITY, UNSPECIFIED 08/10/2018 Kiera TAYLOR MD Ot G47.33 OBSTRUCTIVE SLEEP APNEA (ADULT) (PEDIATR 08/10/2018 BRANDON TOVAR, Kiera KHALIL Ot J44.9 CHRONIC OBSTRUCTIVE PULMONARY DISEASE, U 08/10/2018 Kiera TAYLOR MD Ot R06.02 SHORTNESS OF BREATH 08/10/2018 Kiera TAYLOR MD Ot R42 DIZZINESS AND GIDDINESS 08/10/2018 BRANDON TOVAR M REMI Ot R55 SYNCOPE AND COLLAPSE 08/10/2018 Kiera TAYLOR MD Ot E66.9 OBESITY, UNSPECIFIED 08/10/2018 Kiera TAYLOR MD Ot G47.33 OBSTRUCTIVE SLEEP APNEA (ADULT) (PEDIATR 08/10/2018 Kiera TAYLOR MD Ot J44.9 CHRONIC OBSTRUCTIVE PULMONARY DISEASE, U 08/10/2018 Kiera TAYLOR MD Ot R06.02 SHORTNESS OF BREATH 08/10/2018 Kiera TAYLOR MD Ot R42 DIZZINESS AND GIDDINESS 08/10/2018 Kiera TAYLOR MD Ot R55 SYNCOPE AND COLLAPSE 08/15/2018 Kiera TAYLOR MD Ot E66.9 OBESITY, UNSPECIFIED 08/15/2018 Kiera TAYLOR MD Ot G47.33 OBSTRUCTIVE SLEEP APNEA (ADULT) (PEDIATR 08/15/2018 Kiera TAYLOR MD Ot J44.9 CHRONIC OBSTRUCTIVE PULMONARY DISEASE, U 08/15/2018 Kiera TAYLOR MD Ot R06.02 SHORTNESS OF BREATH 08/15/2018 Kiera TAYLOR MD Ot R42 DIZZINESS AND GIDDINESS 08/15/2018 BRANDON TOVAR M REMI Ot R55 SYNCOPE AND COLLAPSE 08/15/2018 Kiera TAYLOR MD Ot E66.9 OBESITY, UNSPECIFIED 08/15/2018 BRANDON TOVAR M REMI Ot G47.33 OBSTRUCTIVE SLEEP APNEA (ADULT) (PEDIATR 08/15/2018 Kiera TAYLOR MD Ot J44.9 CHRONIC OBSTRUCTIVE PULMONARY DISEASE, U 08/15/2018 Kiera TAYLOR MD Ot R06.02 SHORTNESS OF BREATH 08/15/2018 Kiera TAYLOR MD Ot R42 DIZZINESS AND GIDDINESS 08/15/2018 Kiera TAYLOR MD Ot R55 SYNCOPE AND COLLAPSE 08/15/2018 Kiera TAYLOR MD Ot E66.9 OBESITY, UNSPECIFIED 08/15/2018 Kiera TAYLOR MD Ot G47.33 OBSTRUCTIVE SLEEP APNEA (ADULT) (PEDIATR 08/15/2018 Kiera TAYLOR MD Ot J44.9 CHRONIC OBSTRUCTIVE PULMONARY DISEASE, U 08/15/2018 Kiera TAYLOR MD Ot R06.02 SHORTNESS OF BREATH 08/15/2018 Kiera TAYLOR MD Ot R42 DIZZINESS AND GIDDINESS 08/15/2018 Kiera TAYLOR MD Ot R55 SYNCOPE AND COLLAPSE 08/16/2018 Kiera TAYLOR MD Ot E66.9 OBESITY, UNSPECIFIED 08/16/2018 Kiera TAYLOR MD Ot G47.33 OBSTRUCTIVE SLEEP APNEA (ADULT) (PEDIATR 08/16/2018 Kiera TAYLOR MD Ot I48.0 PAROXYSMAL ATRIAL FIBRILLATION 08/16/2018 Kiera TAYLOR MD Ot J44.9 CHRONIC OBSTRUCTIVE PULMONARY DISEASE, U 08/16/2018 Kiera TAYLOR MD Ot J45.909 UNSPECIFIED ASTHMA, UNCOMPLICATED 08/16/2018 Kiera TAYLOR MD Ot J84.10 PULMONARY FIBROSIS, UNSPECIFIED 08/16/2018 Kiera TAYLOR MD Ot R55 SYNCOPE AND COLLAPSE 08/16/2018 Kiera TAYLOR MD Ot Z68.34 BODY MASS INDEX (BMI) 34.0-34.9, ADULT 08/16/2018 Kiera TAYLOR MD Ot Z79.899 OTHER NURSING HOME (CURRENT) DRUG THERAPY 08/16/2018 Kiera TAYLOR MD Ot Z87.891 PERSONAL HISTORY OF NICOTINE DEPENDENCE 08/17/2018 SHERRON DIAMOND APRN Ot A49.01 METHICILLIN SUSCEP STAPH INFECTION, UNSP 08/17/2018 SHERRON DIAMOND APRN Ot J43.9 EMPHYSEMA, UNSPECIFIED 08/17/2018 SHERRON DIAMOND APRN Ot J98.4 OTHER DISORDERS OF LUNG 08/20/2018 Kiera TAYLOR MD Ot E66.9 OBESITY, UNSPECIFIED 08/20/2018 Kiera TAYLOR MD Ot G47.33 OBSTRUCTIVE SLEEP APNEA (ADULT) (PEDIATR 08/20/2018 Kiera TAYLOR MD Ot J44.9 CHRONIC OBSTRUCTIVE PULMONARY DISEASE, U 08/20/2018 Kiera TAYLOR MD Ot R06.02 SHORTNESS OF BREATH 08/20/2018 Kiera TAYLOR MD Ot R42 DIZZINESS AND GIDDINESS 08/20/2018 Kiera TAYLOR MD Ot R55 SYNCOPE AND COLLAPSE 08/22/2018 Kiera TAYLOR MD Ot E66.9 OBESITY, UNSPECIFIED 08/22/2018 Kiera TAYLOR MD Ot G47.33 OBSTRUCTIVE SLEEP APNEA (ADULT) (PEDIATR 08/22/2018 Kiera TAYLOR MD Ot J44.9 CHRONIC OBSTRUCTIVE PULMONARY DISEASE, U 08/22/2018 Kiera TAYLOR MD Ot R06.02 SHORTNESS OF BREATH 08/22/2018 Kiera TAYLOR MD Ot R42 DIZZINESS AND GIDDINESS 08/22/2018 Kiera TAYLOR MD Ot R55 SYNCOPE AND COLLAPSE 08/22/2018 Kiera TAYLOR MD Ot E66.9 OBESITY, UNSPECIFIED 08/22/2018 Kiera TAYLOR MD Ot G47.33 OBSTRUCTIVE SLEEP APNEA (ADULT) (PEDIATR 08/22/2018 Kiera TAYLOR MD Ot J44.9 CHRONIC OBSTRUCTIVE PULMONARY DISEASE, U 08/22/2018 Kiera TAYLOR MD Ot R06.02 SHORTNESS OF BREATH 08/22/2018 Kiera TAYLOR MD Ot R42 DIZZINESS AND GIDDINESS 08/22/2018 Kiera TAYLOR MD Ot R55 SYNCOPE AND COLLAPSE 08/22/2018 SHERRON DIAMOND APRN Ot A49.01 METHICILLIN SUSCEP STAPH INFECTION, UNSP 08/22/2018 SHERRON DIAMOND APRN Ot J43.9 EMPHYSEMA, UNSPECIFIED 08/22/2018 SHERRON DIAMOND APRN Ot J98.4 OTHER DISORDERS OF LUNG 08/22/2018 Kiera TAYLOR MD Ot E66.9 OBESITY, UNSPECIFIED 08/22/2018 Kiera TAYLOR MD, Ot G47.33 OBSTRUCTIVE SLEEP APNEA (ADULT) (PEDIATR 08/22/2018 Kiera TAYLOR MD Ot I48.0 PAROXYSMAL ATRIAL FIBRILLATION 08/22/2018 Kiera TAYLOR MD Ot J44.9 CHRONIC OBSTRUCTIVE PULMONARY DISEASE, U 08/22/2018 Kiera TAYLOR MD, Ot J45.909 UNSPECIFIED ASTHMA, UNCOMPLICATED 08/22/2018 Kiera TAYLOR MD, Ot J84.10 PULMONARY FIBROSIS, UNSPECIFIED 08/22/2018 Kiera TAYLOR MD Ot R55 SYNCOPE AND COLLAPSE 08/22/2018 Kiera TAYLOR MD Ot Z68.34 BODY MASS INDEX (BMI) 34.0-34.9, ADULT 08/22/2018 Kiera TAYLOR MD Ot Z79.899 OTHER PUNCH BOX TENDER (CURRENT) DRUG THERAPY 08/22/2018 Kiera TALYOR MD, Ot Z87.891 PERSONAL HISTORY OF NICOTINE DEPENDENCE 12/25/2018 CAIT VILLAFUERTE MD Ot C05.0 MALIGNANT NEOPLASM OF HARD PALATE 01/16/2019 CAIT VILLAFUERTE MD Ot C05.0 MALIGNANT NEOPLASM OF HARD PALATE 01/21/2019 CAIT VILLAFUERTE MD Ot C05.0 MALIGNANT NEOPLASM OF HARD PALATE 01/31/2019 RIZWAN DOWD MD Ot N20.0 CALCULUS OF KIDNEY 01/31/2019 RIZWAN DOWD MD Ot Z53.8 PROCEDURE AND TREATMENT NOT CARRIED OUT 02/07/2019 RIZWAN DOWD MD Ot 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 URETERAL C 02/13/2019 RIZWAN DOWD MD Ot 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 Results Test Result Range Sputum Gram stain - 05/16/18 08:15 GRAM STAIN SPUTUM NO BACTERIA NRG Bacteria identification in bronchial specimen by aerobe culture - 05/16/18 08: 15 QUANTITY OF GROWTH Scant Growth NRG MRSA AGAR Screening test for MRSA is NEGATIVE (Final to follow) NRG Bacteria identification in bronchial specimen by aerobe culture [id number] NRG FTX;REPORTABLE SENSITIVITY REPORTED AT 0743, 05-18-18 NRG Sputum Gram stain - 05/16/18 08:15 GRAM STAIN SPUTUM NO WBC NRG Bacteria identification in bronchial specimen by aerobe culture - 05/16/18 08: 15 Bacteria identification in bronchial specimen by aerobe culture NG NRG Bacterial susceptibility panel - 05/16/18 08:15 Oxacillin susceptibility test by minimum inhibitory concentration < = NRG Gentamicin susceptibility test by minimum inhibitory concentration < = NRG Clindamycin susceptibility test by minimum inhibitory concentration <= NRG Erythromycin susceptibility test by minimum inhibitory concentration <= NRG Trimethoprim/sulfamethoxazole susceptibility test by minimum inhibitoryconcentration S NRG Vancomycin susceptibility test by minimum inhibitory concentration 1 NRG Levofloxacin susceptibility test by minimum inhibitory concentration <= NRG Rifampin susceptibility test by minimum inhibitory concentration <= NRG Tetracycline susceptibility test by minimum inhibitory concentration >= NRG Linezolid susceptibility test by minimum inhibitory concentration 2 NRG Fungus culture - 05/16/18 08:15 FUNGUS REPORT NO FUNGUS GROWTH OBSERVED NRG Mycobacterium species detection by organism specific culture - 05/16/18 08:15 Fungus culture - 05/16/18 08:15 FUNGUS REPORT NO FUNGUS GROWTH OBSERVED NRG THYROID STIMULATING HORMONE - 12/25/18 10:57 THYROID STIMULATING HORMONE 0.99 u[iU]/mL 0.35-4.94 Encounters ACCT No. Visit Date/Time Discharge Status Pt. Type Provider Facility Loc./Unit Complaint [id number] 03/06/2019 08:40:00 03/06/2019 23:59:59 CLS Outpatient [facility] [id number] 03/11/2019 05:46:00 03/11/2019 14:35:00 DIS Outpatient SHANITA GUPTA MD Via [facility] PREOP LEFT URETERAL/RENAL STONE [id number] 03/07/2019 09:48:00 03/07/2019 23:59:59 CLS Outpatient SHANITA GUPTA MD [facility] RAD FS STONES [id number] 01/24/2019 15:03:00 01/24/2019 23:59:59 CLS Outpatient RIZWAN DOWD MD [facility] RAD FS KIDNEY STONES [id number] 01/24/2019 14:38:00 01/24/2019 23:59:59 CLS Outpatient RIZWAN DOWD MD [facility] RAD FS KIDNEY STONE [id number] 12/25/2018 10:34:00 12/25/2018 23:59:59 CLS Outpatient CAIT VILLAFUERTE MD [facility] RAD HX OF MUCOEPIDER MOID GLORIAANOMA [id number] 09/26/2018 09:45:00 09/26/2018 23:59:59 CLS Preadmit SHERRON DIAMOND APRN [facility] RAD COPD MIXED TYPE [id number] 08/20/2018 00:42:00 08/20/2018 23:59:59 CLS Preadmit Kiera TAYLOR MD [facility] CARD COPD MIXED TYPE, DIZZINESS,NEAR SYNCOPE,OBESITY,BEATRIZ [id number] 08/06/2018 11:32:00 08/06/2018 23:59:59 CLS Preadmit SHERRON DIAMOND APRN [facility] RT COPD MIXED TYPE, RESTRICTIVE LUNG DISEASE [id number] 07/26/2018 09:13:00 07/26/2018 23:59:59 CLS Outpatient Kiera TAYLOR MD [facility] AF SURVEILLANCE [id number] 07/25/2018 09:07:00 07/25/2018 23:59:59 CLS Outpatient SHERRON DIAMOND APRN [facility] RAD COPD,RESTRICTIVE LUNG DISEASE [id number] 07/05/2018 11:19:00 07/20/2018 00:01:00 DIS Outpatient Kiera TAYLOR MD [facility] CARD COPD MIXED TYPE, DIZZINESS,NEAR SYNCOPE,OBESITY,BEATRIZ [id number] 07/19/2018 06:54:00 07/19/2018 23:59:59 CLS Outpatient Kiera TAYLOR MD Via [facility] COPD MIXED TYPE, DIZZINESS,NEAR SYNCOPE,OBESITY,BEATRIZ [id number] 07/12/2018 11:47:00 07/12/2018 23:59:59 CLS Outpatient Kiera TAYLOR MD [facility] COPD MIXED TYPE, DIZZINESS,NEAR SYNCOPE,OBESITY,BEATRIZ [id number] 06/13/2018 11:06:00 06/13/2018 23:59:59 CLS Outpatient SHERRON DIAMOND APRN [facility] CARD DIZZINESS, EMPHYSEMA,BRADYCARDIA [id number] 06/06/2018 10:29:00 06/06/2018 23:59:59 CLS Preadmit SHERRON DIAMOND APRN [facility] RAD RESTRICTIVE LUNG DISEASE,COPD,EMPHYSEMA [id number] 05/16/2018 06:51:00 05/16/2018 09:30:00 DIS Outpatient MAY OTERO DO [facility] ENDO COPD/HYPERSOMNIA/SLEEP DISORDER/OBSTRUCTIVE SLEEP [id number] 04/25/2018 05:33:00 04/25/2018 15:55:00 DIS Outpatient MAY OTERO DO [facility] PREOP EBUS [id number] 04/12/2018 12:10:00 04/12/2018 23:59:59 CLS Outpatient SHERRON DIAMOND APRN [facility] LAB J44.9 [id number] 04/04/2018 09:24:00 04/04/2018 23:59:59 CLS Outpatient SHERRON DIAMOND [employer] [facility] RT J44.9 COPD [id number] 01/24/2018 21:01:00 01/25/2018 06:39:00 DIS Outpatient SHERRON DIAMOND [employer] [facility] SLEEP G47.10 HYPERSOMNIA [id number] 01/11/2018 15:51:00 01/11/2018 23:59:59 CLS Preadmit SHERRON DIAMOND [employer] [facility] RAD R91.1 LUNG NODULE [id number] 01/11/2018 14:09:00 01/11/2018 23:59:59 CLS Outpatient SHERRON DIAMOND [employer] [facility] CR J44.9 [id number] 01/20/2015 09:00:00 01/20/2015 23:59:59 CLS Outpatient SHANITA GUPTA MD [facility] SDC LEFT DISTAL URETERAL STONE [id number] 01/05/2015 10:20:00 01/05/2015 23:59:59 CLS Outpatient SHANITA GUPTA MD [facility] PREOP LEFT DISTAL URETERAL STONE [id number] 01/05/2015 08:30:00 01/05/2015 23:59:59 CLS Outpatient SHANITA GUPTA MD [facility] RAD LEFT STONE [id number] 12/31/2014 14:27:00 12/31/2014 23:59:59 CLS Outpatient SHANITA GUPTA MD [facility] RAD LT URETEREL STONE [id number] 06/02/2014 10:05:00 06/02/2014 23:59:59 CLS Outpatient DIYA NORIEGA MD [facility] ONC [id number] 01/01/2014 15:18:00 02/26/2014 13:04:00 DIS Outpatient DIYA NORIEGA MD [facility] ONC [id number] 07/26/2013 08:49:00 10/24/2013 00:01:00 DIS Outpatient DIYA NORIEGA MD [facility] ONC [id number] 07/08/2013 09:42:00 07/08/2013 23:59:59 CLS Outpatient SHANITA GUPTA MD [facility] RAD PROSTATE [place] [id number] 03/13/2019 08:00:00 PEN Preadmit SHANITA GUPTA MD [facility] LEFT URETERAL/RENAL STONE [id number] 01/28/2015 13:03:00 Document Registration [id number] 01/20/2015 05:48:00 Document Registration
--- OUTSIDE RECORDS SUMMARY | 2019-03-13 07:02 | XMS REPORT | Clinical Summary ---
Author Author [facility] Organization [facility] Address Unknown Phone Unavailable Care Team Providers Care Cage Operator Name Role Phone SamanthaLesliRita PCP Unavailable Silvia Hall MD Unavailable Source Comments Some departments are not documenting in the electronic medical record. If you do not see the information that you expected, contact Release of Information in the Health Information Management department at [phone] for further assistance in locating additional records.[facility] Allergies No Known Allergies Medications End Date Status Medication Sig Dispensed Refills Start Date Active allopurinol (ZYLOPRIM) Take 300 mg 0 300 mg tablet by mouth daily. Active tamsulosin (FLOMAX) 0.4 Take 0.4 mg 0 mg capsule by mouth daily. Active diclofenac potassium Take 50 mg by 0 (CATAFLAM) 50 mg Tab mouth daily as needed. Active ibuprofen (MOTRIN) 800 mg Take 800 mg 0 tablet by mouth every 6 hours as needed. Active cyclobenzaprine Take 5 mg by 0 (FLEXERIL) 5 mg tablet mouth three times daily. Active Cranberry Extract 300 mg Take by 0 Tab mouth. Active RESVERATROL PO Take 60 mg by 0 mouth daily. Active CETIRIZINE HCL (ZYRTEC Take by 0 PO) mouth as Needed. Active albuterol (PROAIR HFA) 90 Inhale 2 0 mcg/actuation inhaler Puffs by mouth every 6 hours as needed. Active LACTOBACILLUS ACIDOPHILUS Take by 0 (ACIDOPHOLUS PO) mouth. Active Problems Problem Noted Date Prostate cancer 06/26/2013 Overview: PSA (Nov 2012)=1.9 ng/mL. PNBx (06/26/2013): cT2c; (L) [place] 5+5=10, 4/6 cores, 5-80%; (L) [place] 5+4=9, 1/6 cores, 25%; (R) [place] 5+5=10, 2/6 cores, 40-90%, (R) [place] 4+5=9, 4/6 cores, 5-90%; Dr. Mclaughlin. CT [...] Relation Name Status Comments Other Social History Date Tobacco Use Types Packs/Day Years Used Never Smoker Smokeless Tobacco: Former Chew User Alcohol Use Drinks/Week oz/Week Comments No Sex Assigned at Date Recorded Not on file Industry Job Start Date Occupation Not on file Not on file Not on file Travel End Travel History Travel Start No recent travel history available. Last Filed Vital Signs Time Taken Vital Sign Reading 08/14/2013 1:02 PM CDT Blood Pressure 130/78 08/14/2013 1:02 PM CDT Pulse 66 - Temperature - - Respiratory Rate - - Oxygen Saturation - - Inhaled Oxygen - Concentration 08/14/2013 1:02 PM CDT Weight 99.6 kg (219 lb 9.6 oz) 08/14/2013 1:02 PM CDT Height 170.2 cm (5' 7") 08/14/2013 1:02 PM CDT Body Mass Index 34.39 Plan of Treatment Health Maintenance Due Date Last Done Comments HEPATITIS C SCREENING 1950 PHYSICAL (COMPREHENSIVE) 1957 EXAM DTAP/TDAP VACCINES (1 - 1968 Tdap) COLORECTAL CANCER 2000 SCREENING SHINGLES RECOMBINANT 2000 VACCINE (1 of 2) PNEUMONIA (PCV13/PPSV23) 2015 VACCINES (1 of 2 - PCV13) INFLUENZA VACCINE 06/20/2019 Results Not on filefrom Last 3 Months Advance Directives Patient has advance care planning documents on file. For more information, please contact: [address] [place] [address]
[2019-03-13] MEDS ORDERED: LACTATED RINGERS 1,000 ML IV PRN (07:08)
[2019-03-13] MEDS ORDERED: cefTRIAXone FOR IV USE 1,000 MG in WATER (STERILE) FOR INJECTION 10 ML IV ONE (07:15)
--- NOTE | 2019-03-13 07:28 | Progress Note-Pre Operative ---
Pre-Operative Progress Note H&P Reviewed The H&P was reviewed, patient examined and no changes noted. Date Seen by Provider: Mar 13, 2019 Time Seen by Provider: 07: Date H&P Reviewed: Mar 13, 2019 Time H&P Reviewed: 07: Pre-Operative Diagnosis: LT DISTAL URETERAL AND RENAL STONES SHANITA GUPTA MD Mar 13, 2019 07:27
[2019-03-13] MEDS ORDERED: CATHETER FLUSH 10 ML SYR IV PRN (07:30)
[2019-03-13] MEDS ORDERED: LIDOCAINE PF 2% 5 ML (XYLOCAINE) VIAL ONE (07:49)
[2019-03-13] MEDS ORDERED: fentaNYL INJECTION 100 MCG/2 ML AMP ONE (07:49)
[2019-03-13] MEDS ORDERED: proPOfol 200 MG/20 ML (DIPRIVAN) VIAL IV ONE ×2 (07:49→10:08)
[2019-03-13] MEDS ORDERED: MIDAZOLAM 2 MG/2 ML (VERSED) VIAL ONE (07:49)
--- NOTE | 2019-03-13 08:29 | Diagnostic Imaging Report ---
INDICATION: Nephrolithiasis KUB 7:11 AM There is an 8 mm stone projecting over the lower pole of the left kidney. Bowel gas pattern is normal. There is a small calcification projecting on the left side of the bladder that could be a distal ureteral calculus versus a phlebolith. IMPRESSION: Left nephrolithiasis Dictated by: Dictated on workstation # [id number]
--- NOTE | 2019-03-13 09:17 | Progress Note-Post Operative ---
Post-Operative Progess Note Surgeon (s)/Nuclear Licensing Engineer (s) Surgeon SHANITA GUPTA MD Nuclear Licensing Engineer: NONE Pre-Operative Diagnosis LT DISTAL URETERAL AND RENAL STONES Post-Operative Diagnosis SAME Procedure & Operative Findings Date of Procedure 03/13/19 Procedure Performed/Findings LT URETEROSCOPY, LT RETROGRADE UROGRAM, AND LT ESWL Anesthesia Type GENERAL Estimated Blood Loss Estimated blood loss (mL): NONE Specimens/Packing Specimens Removed NONE Packing: NONE SHANITA GUPTA MD Mar 13, 2019 09:17
--- NOTE | 2019-03-13 09:20 | Discharge Inst-Urology ---
Discharge Inst-Urology Discharge Medications New, Converted, or Re-newed RX: RX on Chart Patient Instructions/Follow Up Plan Please make appointment to been seen in office Sunday 03/25. KUB prior to it KUB on way home Post ESWL instructions Increase oral fluids for 48 hours and then as needed. Diet and Activity as tolerated. If questions or concerns contact your physician Or seek help at emergency department. SHANITA GUPTA MD Mar 13, 2019 09:20
[2019-03-13] MEDS ORDERED: SEVOFLURANE (ULTANE) 15 ML INHAL SOLN ONE ×2 (10:08→10:10)
[2019-03-13] MEDS ORDERED: ONDANSETRON 4 MG/2 ML (SDV) Z0FRAN ONE (10:08)
[2019-03-13] MEDS ORDERED: FUROSEMIDE 40 MG/4 ML INJ (LASIX) ONE (10:12)
[2019-03-13] MEDS ORDERED: KETOROLAC 30 MG/ML VIAL ONE (10:12)
[2019-03-13] MEDS ORDERED: CIPR500S2 PO (10:25)
[2019-03-13] MEDS ORDERED: HYDR-3870 PO (10:25)
--- NOTE | 2019-03-13 12:26 | Diagnostic Imaging Report ---
INDICATION: Status post ESWL. COMPARISON: CT dated 01/24/2019. FINDINGS: Single supine radiographic view of the abdomen was obtained status post ESWL and again shows 6-7 mm extraosseous calcification projecting over the inferior pole of the left kidney. Some less well visualized marked calculi are seen more superiorly. These are stable in size and position when compared to prior exam. Note is again made of punctate calcification projecting lateral to the rectum within the left hemipelvis. Note is made of both pelvic phleboliths and UVJ calculus on previous CT dated 01/24/2019. No unexpected radiopaque foreign bodies are seen. No new extraosseous ossifications are identified. Small bowel loops are nondistended. IMPRESSION: 1. Stable left-sided nephrolithiasis. 2. Stable calculus within the left hemipelvis, which again could represent pelvic phleboliths versus UVJ calculus seen on previous CT. Dictated by: Dictated on workstation # [id number]
--- NOTE | 2019-03-13 13:03 | OPERATIVE REPORT ---
DATE OF SERVICE: 03/13/2019 PREOPERATIVE DIAGNOSES: 1. Left distal ureteral stone. 2. Left renal stone. POSTOPERATIVE DIAGNOSES: 1. Left distal ureteral stone. 2. Left renal stone. OPERATION PERFORMED: Cystoscopy, left ureteroscopy, left retrograde urogram and left ESWL. SURGEON: Toñito Gupta MD ANESTHESIA: General. COMPLICATIONS: None. DESCRIPTION OF PROCEDURE: Under satisfactory general anesthesia, the patient in lithotomy position on the cystoscopy table. Genitalia were prepped and draped in the usual sterile fashion. Cystoscope was introduced under vision, anterior urethra was normal. The prostate was slightly enlarged with a median bar. The bladder was normal with no foreign body or stone. The left ureteral orifice and the right one were normal with clear efflux. I went ahead and dilated the left ureteral orifice intramural portion to accommodate 6.9-Mauritian semi-rigid ureteroscope; however, I could not get to the level of the stone because of some narrowing in the ureter that did not allow the 6.9-Mauritian ureteroscope to pass safely. I injected some contrast and I could see the filling defect and the position of the stone conforming with the KUB, so I removed the ureteroscope. There was complete emptying of the ureter. We moved the patient to the ESWL table. We first localized the left distal ureteral stone delivered 1200 shocks at a kV of 6, completely fragmented and disappeared the stone. Then, we moved on the left renal stone and delivered 3000 shocks at kV of 4 with complete fragmentation as well. The patient received 40 of Lasix and 30 mg of Toradol IV at the end of the procedure. He tolerated the procedure and anesthesia well and was sent to recovery room in stable condition. Job ID: [id number] DocumentID: [id number] Dictated Date: 03/13/2019 09:55:25 Packaging Operator Date: 03/13/2019 13:02:43 Dictated By: TOÑITO GUPTA MD
--- NOTE | 2019-03-13 13:37 | Anesthesia-General Post-Op ---
General Patient Condition Mental Status/LOC: Same as Preop Cardiovascular: Satisfactory Nausea/Vomiting: Absent Respiratory: Satisfactory Pain: Controlled Complications: Absent Post Op Complications Complications None Follow Up Care/Instructions Patient Instructions None needed. Anesthesia/Patient Condition Patient Condition Patient is doing well, no complaints, stable vital signs, no apparent adverse anesthesia problems. No complications reported per nursing. CATHERINE SORTO CRNA Mar 13, 2019 13:36
== END 2019-03-13 12:10 | disposition home or self-care (01) ==
LOC: SDC 06:58
PROVIDERS: ATTEND Urology
DX: N20.2 Calculus of kidney with calculus of ureter (principal); Z11.2 Encounter for screening for other bacterial diseases; J44.9 Chronic obstructive pulmonary disease, unspecified; G47.33 Obstructive sleep apnea (adult) (pediatric); I48.91 Unspecified atrial fibrillation; F32.9 Major depressive disorder, single episode, unspecified; F41.9 Anxiety disorder, unspecified; M10.9 Gout, unspecified; M19.91 Primary osteoarthritis, unspecified site; K21.9 Gastro-esophageal reflux disease without esophagitis; Z85.46 Personal history of malignant neoplasm of prostate; Z79.899 Other long term (current) drug therapy; Z85.819 Personal history of malignant neoplasm of unspecified site of lip, oral cavity, and pharynx
CPT/HCPCS: 74018; 87081

== ENCOUNTER → 2019-03-20 | Outpatient (CLI) | payer MEDICARE ==
[~2019-03-20] MED LIST changes: +HYDR-3870 PO; +RT-ALBUTEROL SULF 2.5 MG/3 ML PRE-MIX VIAL INH ONE
--- NOTE | 2019-03-20 19:08 | Diagnostic Imaging Report ---
PROCEDURE: CT chest without contrast. TECHNIQUE: Multiple contiguous axial images were obtained through the chest without the use of intravenous contrast. Auto Exposure Controls were utilized during the CT exam to meet ALARA standards for radiation dose reduction. DATE: March 20, 2019. COMPARISON: Chest radiograph, December 25, 2018. INDICATION: 68-year-old male, shortness of breath. PROCEDURE: Axial noncontrasted CT images of the chest. Noncontrasted limits the evaluation of the mediastinum and vascular structures. FINDINGS: There are peripheral reticular opacities with a mid and lower lung zone predominance. There is traction bronchiectasis. There is no characteristic peripheral honeycombing. There are no areas of groundglass lung attenuation. There is no pulmonary nodule. There is no additional focal airspace consolidation. The central airways are patent. The trachea is normal in caliber. The esophagus is not abnormally dilated. The heart is not enlarged. There is no pericardial effusion. There is no identified abnormally enlarged mediastinal or axillary lymph node meeting CT size criteria for adenopathy. There is bilateral gynecomastia. The imaged portions of the upper abdomen are unremarkable in appearance. There is no identified acute bony abnormality. IMPRESSION: 1. Findings of interstitial lung disease which do not meet definite diagnostic criteria for UIP. UIP and fibrotic NSIP would be the primary differential diagnostic considerations. Overall appearance is unchanged since July 25, 2018. 2. No identified acute cardiopulmonary abnormality. Dictated by: Dictated on workstation # [id number]
== END ==
LOC: RT 11:16
PROVIDERS: ATTEND Nurse Practitioner Family
DX: J44.9 Chronic obstructive pulmonary disease, unspecified (principal); J98.4 Other disorders of lung
CPT/HCPCS: 71250; 94060; 94726; 94729

== ENCOUNTER → 2019-03-25 | Outpatient (CLI) | payer MEDICARE ==
[~2019-03-25] MED LIST changes: -RT-ALBUTEROL SULF 2.5 MG/3 ML PRE-MIX VIAL INH ONE
--- NOTE | 2019-03-25 15:29 | Diagnostic Imaging Report ---
INDICATION: History of nephrolithiasis. Interval ESWL. COMPARISON: 03/13/2019. FINDINGS: Single supine radiographic view of the abdomen was obtained and demonstrates 6-7 mm loops of the calculus projecting over the inferior pole of the left kidney. There are less well-defined microcalcifications also seen projecting over the left renal shadow. Additionally, stable calculus is seen projecting over the left hemipelvis. No unexpected radiopaque foreign bodies are seen. Small bowel loops are nondistended. Bony structures show no acute abnormalities. IMPRESSION: 1. Stable left-sided nephrolithiasis. 2. Stable calculus within the left hemipelvis, which again could represent pelvic phlebolith versus UVJ calculus. 3. Nonobstructive small bowel gas pattern. Dictated by: Dictated on workstation # [id number]
== END ==
LOC: RAD 14:02
PROVIDERS: ATTEND Urology
DX: N20.2 Calculus of kidney with calculus of ureter (principal); R14.3 Flatulence
CPT/HCPCS: 74018

== ENCOUNTER → 2019-12-27 | Outpatient (CLI) | payer MEDICARE ==
[~2019-12-27] MED LIST changes: -TAMS0.4C98 PO; +TMSL.4C PO
--- NOTE | 2019-12-27 13:10 | Diagnostic Imaging Report ---
INDICATION: Cancer, checkup. TIME OF EXAMINATION: 03/25/2019. COMPARISON: Prior chest from 12/25/2018. FINDINGS: The heart size is stable. A cardiac monitoring device overlies the heart. There are some interstitial changes in the periphery of both midlung gomes, perhaps chronic. No parenchymal consolidation is seen. There is no effusion or pneumothorax. IMPRESSION: Stable chest. No acute feature is detected. Dictated by: Dictated on workstation # [id number]
== END ==
LOC: RAD 11:34
PROVIDERS: ATTEND Otolaryngology Otolaryngology/Facial Plastic Surgery
DX: C05.0 Malignant neoplasm of hard palate (principal); Z98.890 Other specified postprocedural states
CPT/HCPCS: 36415; 71046; 84443

== ENCOUNTER → 2020-01-24 | Outpatient (CLI) | payer MEDICARE ==
[2020-01-24 10:19] LABS: BASOPHILS % (AUTO) 0 % (0-10); EOSINOPHILS # (AUTO) 0.4 10^3/uL (0.0-0.3); EOSINOPHILS % (AUTO) 5 % (0-10); HEMATOCRIT 42 % (40-54); HEMOGLOBIN 14.2 G/DL (13.3-17.7); LYMPHOCYTES # (AUTO) 1.5 X 10^3 (1.0-4.0); LYMPHOCYTES % (AUTO) 18 % (12-44); MEAN CORPUSCULAR HEMOGLOBIN 30 PG (25-34); MEAN CORPUSCULAR HGB CONC 34 G/DL (32-36); MEAN CORPUSCULAR VOLUME 88 FL (80-99); MEAN PLATELET VOLUME 8.6 FL (7.4-10.4); MONOCYTES # (AUTO) 0.7 X 10^3 (0.0-1.0); MONOCYTES % (AUTO) 8 % (0-12); NEUTROPHILS # (AUTO) 5.9 X 10^3 (1.8-7.8); NEUTROPHILS % (AUTO) 69 % (42-75); PLATELET COUNT 261 10^3/uL (130-400); RED CELL DISTRIBUTION WIDTH 14.7 % (10.0-14.5); WHITE BLOOD COUNT 8.5 10^3/uL (4.3-11.0)
[2020-01-24 10:34] LABS: CALCIUM 8.9 MG/DL (8.5-10.1); CARBON DIOXIDE 24 MMOL/L (21-32); CHLORIDE 106 MMOL/L (98-107); POTASSIUM 4.2 MMOL/L (3.6-5.0); SODIUM 137 MMOL/L (135-145); TOTAL PROTEIN 6.8 GM/DL (6.4-8.2)
[2020-01-24 10:52] LABS: ALANINE AMINOTRANSFERASE 15 U/L (0-55); ALBUMIN 3.9 GM/DL (3.2-4.5); ALKALINE PHOSPHATASE 56 U/L (40-136); BILIRUBIN,TOTAL 0.5 MG/DL (0.1-1.0); BUN/CREATININE RATIO 22; CREATININE SERUM 0.92 MG/DL (0.60-1.30); GFR ESTIMATED > 60; GLUCOSE 91 MG/DL (70-105)
== END ==
LOC: LAB 10:07
PROVIDERS: ATTEND Internal Medicine Critical Care Medicine
DX: J84.10 Pulmonary fibrosis, unspecified (principal)
CPT/HCPCS: 36415; 80053; 85025

== ENCOUNTER 2020-02-21 11:40 | Outpatient (RCR) | payer MEDICARE ==
[2020-02-21 11:55] LABS: BASOPHILS % (AUTO) 0 % (0-10); EOSINOPHILS % (AUTO) 11 % (0-10); HEMATOCRIT 44 % (40-54); HEMOGLOBIN 14.8 G/DL (13.3-17.7); LYMPHOCYTES # (AUTO) 1.4 X 10^3 (1.0-4.0); LYMPHOCYTES % (AUTO) 16 % (12-44); MEAN CORPUSCULAR HEMOGLOBIN 30 PG (25-34); MEAN CORPUSCULAR HGB CONC 34 G/DL (32-36); MEAN CORPUSCULAR VOLUME 90 FL (80-99); MEAN PLATELET VOLUME 8.8 FL (7.4-10.4); MONOCYTES # (AUTO) 0.8 X 10^3 (0.0-1.0); MONOCYTES % (AUTO) 8 % (0-12); NEUTROPHILS # (AUTO) 5.8 X 10^3 (1.8-7.8); NEUTROPHILS % (AUTO) 64 % (42-75); PLATELET COUNT 267 10^3/uL (130-400); RED CELL DISTRIBUTION WIDTH 14.7 % (10.0-14.5)
[2020-02-21 12:14] LABS: ALANINE AMINOTRANSFERASE 17 U/L (0-55); ALBUMIN 4.2 GM/DL (3.2-4.5); ALKALINE PHOSPHATASE 58 U/L (40-136); BILIRUBIN,TOTAL 0.4 MG/DL (0.1-1.0); BUN/CREATININE RATIO 17; CALCIUM 9.4 MG/DL (8.5-10.1); CARBON DIOXIDE 22 MMOL/L (21-32); CHLORIDE 106 MMOL/L (98-107); CREATININE SERUM 0.95 MG/DL (0.60-1.30); GFR ESTIMATED > 60; GLUCOSE 97 MG/DL (70-105); POTASSIUM 4.4 MMOL/L (3.6-5.0); SODIUM 140 MMOL/L (135-145); TOTAL PROTEIN 7.5 GM/DL (6.4-8.2)
== END 2020-05-21 | disposition home or self-care (01) ==
LOC: LAB 11:40
PROVIDERS: ATTEND Internal Medicine Critical Care Medicine
DX: J84.10 Pulmonary fibrosis, unspecified (principal)
CPT/HCPCS: 36415; 80053; 85025

== ENCOUNTER 2020-03-27 12:18 | Outpatient (RCR) | payer MEDICARE ==
[2020-03-27 12:32] LABS: BASOPHILS # (AUTO) 0.1 10^3/uL (0.0-0.1); BASOPHILS % (AUTO) 1 % (0-10); EOSINOPHILS # (AUTO) 0.4 10^3/uL (0.0-0.3); EOSINOPHILS % (AUTO) 5 % (0-10); HEMATOCRIT 44 % (40-54); LYMPHOCYTES # (AUTO) 1.8 X 10^3 (1.0-4.0); LYMPHOCYTES % (AUTO) 19 % (12-44); MEAN CORPUSCULAR HEMOGLOBIN 31 PG (25-34); MEAN CORPUSCULAR HGB CONC 34 G/DL (32-36); MEAN CORPUSCULAR VOLUME 90 FL (80-99); MEAN PLATELET VOLUME 8.4 FL (7.4-10.4); MONOCYTES # (AUTO) 0.8 X 10^3 (0.0-1.0); MONOCYTES % (AUTO) 8 % (0-12); NEUTROPHILS # (AUTO) 6.7 X 10^3 (1.8-7.8); NEUTROPHILS % (AUTO) 68 % (42-75); PLATELET COUNT 268 10^3/uL (130-400); RED CELL DISTRIBUTION WIDTH 14.4 % (10.0-14.5); WHITE BLOOD COUNT 9.8 10^3/uL (4.3-11.0)
[2020-03-27 12:37] LABS: ALBUMIN 4.1 GM/DL (3.2-4.5); CHLORIDE 107 MMOL/L (98-107); POTASSIUM 4.5 MMOL/L (3.6-5.0); SODIUM 138 MMOL/L (135-145)
[2020-03-27 12:38] LABS: CALCIUM 8.9 MG/DL (8.5-10.1)
[2020-03-27 12:39] LABS: GLUCOSE 89 MG/DL (70-105)
[2020-03-27 12:41] LABS: BILIRUBIN,TOTAL 0.4 MG/DL (0.1-1.0); CARBON DIOXIDE 24 MMOL/L (21-32)
[2020-03-27 12:43] LABS: ALKALINE PHOSPHATASE 50 U/L (40-136); CREATININE SERUM 0.93 MG/DL (0.60-1.30); GFR ESTIMATED > 60
[2020-03-27 12:44] LABS: BUN/CREATININE RATIO 24
[2020-03-27 12:46] LABS: ALANINE AMINOTRANSFERASE 18 U/L (0-55)
== END 2020-06-25 | disposition home or self-care (01) ==
LOC: LAB 12:18
PROVIDERS: ATTEND Internal Medicine Critical Care Medicine
DX: J84.10 Pulmonary fibrosis, unspecified (principal)
CPT/HCPCS: 36415; 80053; 85025

== ENCOUNTER 2020-06-19 12:48 | Outpatient (RCR) | payer MEDICARE ==
[~2020-06-19 12:48] MED LIST changes: -CALC-6 PO; +CALC1TAB84 PO
[2020-06-19 13:02] LABS: BASOPHILS % (AUTO) 0 % (0-10); EOSINOPHILS # (AUTO) 0.4 10^3/uL (0.0-0.3); EOSINOPHILS % (AUTO) 4 % (0-10); HEMATOCRIT 43 % (40-54); HEMOGLOBIN 14.4 G/DL (13.3-17.7); LYMPHOCYTES % (AUTO) 22 % (12-44); MEAN CORPUSCULAR HEMOGLOBIN 30 PG (25-34); MEAN CORPUSCULAR HGB CONC 34 G/DL (32-36); MEAN CORPUSCULAR VOLUME 89 FL (80-99); MEAN PLATELET VOLUME 8.6 FL (7.4-10.4); MONOCYTES # (AUTO) 0.7 X 10^3 (0.0-1.0); MONOCYTES % (AUTO) 8 % (0-12); NEUTROPHILS % (AUTO) 66 % (42-75); PLATELET COUNT 286 10^3/uL (130-400); WHITE BLOOD COUNT 9.1 10^3/uL (4.3-11.0)
[2020-06-19 13:30] LABS: ALBUMIN 4.1 GM/DL (3.2-4.5); CHLORIDE 107 MMOL/L (98-107); POTASSIUM 3.9 MMOL/L (3.6-5.0); SODIUM 139 MMOL/L (135-145)
[2020-06-19 13:31] LABS: CALCIUM 9.2 MG/DL (8.5-10.1)
[2020-06-19 13:32] LABS: GLUCOSE 84 MG/DL (70-105); TOTAL PROTEIN 7.1 GM/DL (6.4-8.2)
[2020-06-19 13:33] LABS: CARBON DIOXIDE 23 MMOL/L (21-32)
[2020-06-19 13:34] LABS: BILIRUBIN,TOTAL 0.5 MG/DL (0.1-1.0)
[2020-06-19 13:36] LABS: ALKALINE PHOSPHATASE 53 U/L (40-136); CREATININE SERUM 0.85 MG/DL (0.60-1.30); GFR ESTIMATED > 60
[2020-06-19 13:37] LABS: BUN/CREATININE RATIO 20
[2020-06-19 13:39] LABS: ALANINE AMINOTRANSFERASE 15 U/L (0-55)
== END 2020-09-17 | disposition home or self-care (01) ==
LOC: LAB 12:48
PROVIDERS: ATTEND Internal Medicine Critical Care Medicine
DX: J84.10 Pulmonary fibrosis, unspecified (principal)
CPT/HCPCS: 36415; 80053; 85025

== ENCOUNTER → 2021-02-17 | Outpatient (CLI) | payer MEDICARE ==
--- NOTE | 2021-02-17 13:44 | Diagnostic Imaging Report ---
CLINICAL INDICATION: Patient with 2 years of sinus problems. EXAM: Axial CT scan of the maxillofacial structures without IV contrast . Coronal and sagittal reformations were performed. Auto Exposure Controls were utilized during the CT exam to meet ALARA standards for radiation dose reduction. COMPARISON: None. FINDINGS: PARANASAL SINUSES: FRONTAL: Unremarkable. ETHMOID: There is mild mucosal thickening involving the right maxillary sinus region. MAXILLARY: There is near complete consolidation of the right maxillary sinus. There is poor dentition with bone loss involving the floor of the right maxillary sinus in the region of a deformed and eroded right maxillary molar tooth. SPHENOID: Unremarkable. OTHER PARANASAL SINUS FINDINGS: The right ostiomeatal unit region is obstructed by mucosal thickening. The left ostiomeatal unit region is patent. NASAL SEPTUM: Relatively midline. No significant bony spurs. VISUALIZED TEMPORAL BONE STRUCTURES: Unremarkable. BONY STRUCTURES: There is a chronic bony deformity involving the medial wall of the left orbit with a small amount of intraorbital fat extending into the left anterior ethmoid sinus region. There is no extension of the extraocular muscles into the defect. EXTRACRANIAL SOFT TISSUE/ ORBITS: Unremarkable. IMPRESSION: 1: There is a small chronic appearing bony defect involving the medial left orbital wall with a small amount of left orbital fat extending into it. There is no CT evidence of extraocular muscle entrapment. 2: There is paranasal sinus disease with the right maxillary sinus affected the most. There is poor dentition and bone loss involving the floor of the right maxillary sinus which may be from chronic odontogenic disease. Dictated by: Dictated on workstation # [id number]
== END ==
LOC: RAD FS 10:58
PROVIDERS: ATTEND Otolaryngology Otolaryngology/Facial Plastic Surgery
DX: J32.9 Chronic sinusitis, unspecified (principal)
CPT/HCPCS: 70486

== ENCOUNTER 2021-04-13 05:40 | Outpatient (CLI) | payer MEDICARE ==
[~2021-04-13] VITALS: Ht 170.2 cm; Wt 80.3 kg
[2021-04-13 10:32] VITALS: BP 128/72
[2021-04-13] MEDS ORDERED: NINT100C PO (10:38)
[2021-04-13 11:03] LABS: BASOPHILS # (AUTO) 0.1 10^3/uL (0.0-0.1); BASOPHILS % (AUTO) 0 % (0-10); EOSINOPHILS # (AUTO) 0.1 10^3/uL (0.0-0.3); EOSINOPHILS % (AUTO) 1 % (0-10); HEMATOCRIT 42 % (40-54); HEMOGLOBIN 13.8 g/dL (13.3-17.7); LYMPHOCYTES # (AUTO) 1.4 10^3/uL (1.0-4.0); LYMPHOCYTES % (AUTO) 10 % (12-44); MEAN CORPUSCULAR HEMOGLOBIN 31 pg (25-34); MEAN CORPUSCULAR HGB CONC 33 g/dL (32-36); MEAN CORPUSCULAR VOLUME 92 fL (80-99); MEAN PLATELET VOLUME 8.6 fL (9.0-12.2); MONOCYTES # (AUTO) 1.2 10^3/uL (0.0-1.0); MONOCYTES % (AUTO) 8 % (0-12); NEUTROPHILS # (AUTO) 11.9 10^3/uL (1.8-7.8); NEUTROPHILS % (AUTO) 81 % (42-75); PLATELET COUNT 267 10^3/uL (130-400); WHITE BLOOD COUNT 14.8 10^3/uL (4.3-11.0)
[2021-04-13 11:19] LABS: BUN/CREATININE RATIO 21; CALCIUM 9.2 MG/DL (8.5-10.1); CARBON DIOXIDE 28 MMOL/L (21-32); CHLORIDE 104 MMOL/L (98-107); CREATININE SERUM 0.89 MG/DL (0.60-1.30); GFR ESTIMATED > 60; GLUCOSE 81 MG/DL (70-105); POTASSIUM 3.5 MMOL/L (3.6-5.0); SODIUM 138 MMOL/L (135-145)
[2021-04-13 11:31] LABS: BAND NEUTROPHILS 0 %; BASOPHILS % (MANUAL) 0 %; EOSINOPHILS % (MANUAL) 0 %; LYMPHOCYTES % (MANUAL) 9 %; MONOCYTES % (MANUAL) 4 %; NEUTROPHILS % (MANUAL) 87 %; RBC MORPH NORMAL
--- NOTE | 2021-04-13 11:31 | Diagnostic Imaging Report ---
INDICATION: Evaluation prior to sinus surgery. Asymptomatic. TECHNIQUE: Two view chest at 11:05 AM. CORRELATION STUDY: 12/27/2019. FINDINGS: The heart size, mediastinum, and vasculature are overall generally stable. A Loop recorder device projects over the anterior chest. Scattered mildly prominent interstitial markings within the peripheral aspects of both lung gomes appear largely chronic. No adverse interval change or findings to suggest new infiltrate. No effusion. The visualized osseous structures are unremarkable. IMPRESSION: Stable appearance of the chest demonstrating no acute cardiopulmonary abnormality. Likely chronic change about the lung parenchyma. Dictated by: Dictated on workstation # [id number]
== END 2021-04-13 13:11 ==
LOC: PREOP 05:40
PROVIDERS: ATTEND Otolaryngology Otolaryngology/Facial Plastic Surgery
DX: Z01.812 Encounter for preprocedural laboratory examination (principal); Z01.810 Encounter for preprocedural cardiovascular examination; J32.9 Chronic sinusitis, unspecified; J34.3 Hypertrophy of nasal turbinates
CPT/HCPCS: 36415; 71046; 80048; 85007; 85027; 87081; 93005

== ENCOUNTER → 2021-04-14 | Outpatient (CLI) | payer MEDICARE ==
[~2021-04-14] MED LIST changes: +ACHD5005 PO; +NINT100C PO; +PENI500T PO; +PRD20T PO
== END ==
LOC: LAB FS 11:20
PROVIDERS: ATTEND Otolaryngology Otolaryngology/Facial Plastic Surgery
DX: Z01.812 Encounter for preprocedural laboratory examination (principal); J32.9 Chronic sinusitis, unspecified; J34.3 Hypertrophy of nasal turbinates; Z20.822 Contact with and (suspected) exposure to COVID-19
CPT/HCPCS: 87635

== ENCOUNTER 2021-04-16 07:05 | Day surgery (SDC) | payer MEDICARE ==
[~2021-04-16] VITALS: Ht 170.2 cm; Wt 80.3 kg
[2021-04-16] VITALS (10 sets, daily range): BP systolic 116–163; BP diastolic 63–80
[~2021-04-16 07:05] MED LIST changes: -ACHD5005 PO; -PENI500T PO; -PRD20T PO
[2021-04-16] MEDS ORDERED: AMPICILLIN/SULBACTAM INJECTION 1.5 GM in NS (IVPB) 100 ML IV ONE (07:15)
[2021-04-16] MEDS ORDERED: HYDROCORTISONE 100 MG/2 ML (Solu-CORTEF) VIAL IV ONE (07:15)
[2021-04-16] MEDS ORDERED: COCAINE HCL 4% 2 ML SYR ONE (07:35)
[2021-04-16] MEDS ORDERED: BSS 15 ML ONE (07:36)
[2021-04-16] MEDS ORDERED: LIDOCAINE/EPI 1%-1:200,000 (XYLOCAINE) 30 ML VIAL ONE (07:36)
[2021-04-16] MEDS ORDERED: PHENYLEPHRINE 0.5% NASAL SPR (NEO-SYNEPHRINE) REG ONE (07:36)
--- NOTE | 2021-04-16 07:37 | Progress Note-Pre Operative ---
Pre-Operative Progress Note H&P Reviewed The H&P was reviewed, patient examined and no changes noted. Date Seen by Provider: April 16, 2021 Time Seen by Provider: 07:30 Date H&P Reviewed: April 16, 2021 Time H&P Reviewed: 07:30 Pre-Operative Diagnosis: Chronic Right pansinusitis, Bialt Hyper of Inf Turbs CAIT VILLAFUERTE MD April 16, 2021 07:37
[2021-04-16] MEDS: LACTATED RINGERS 1,000 ML IV PRN ×2 (08:01→09:00)
[2021-04-16] MEDS ORDERED: SEVOFLURANE (ULTANE) 15 ML INHAL SOLN ONE (08:15)
[2021-04-16] MEDS ORDERED: proPOfol 200 MG/20 ML (DIPRIVAN) VIAL IV ONE (08:15)
[2021-04-16] MEDS ORDERED: LIDOCAINE PF 2% 5 ML (XYLOCAINE) VIAL ONE (08:15)
[2021-04-16] MEDS ORDERED: fentaNYL INJ 100 MCG/2 ML AMP ONE (08:16)
--- NOTE | 2021-04-16 09:07 | Progress Note-Post Operative ---
Post-Operative Progess Note Surgeon (s)/Surtass Analyst (s) Surgeon CAIT VILLAFUERTE MD Surtass Analyst n/a Pre-Operative Diagnosis HYPERTROPHY NASAL PSSAGES Post-Operative Diagnosis same Post-Op Procedure Note Date of Procedure: April 16, 2021 Name of Procedure Performed: Right ESs, Bilat Red of Inf Turbs Description & Findings Description and Findings: n/a Anesthesia Type get Estimated Blood Loss minimal Packing none. Specimen(s) collected/removed cultures right max sinus-aerobic anaerobic and fungal CAIT VILLAFUERTE MD April 16, 2021 09:06
--- NOTE | 2021-04-16 09:08 | Progress Note-Post Operative ---
Post-Operative Progess Note Surgeon (s)/Bearing Press Machine Operator (s) Surgeon CAIT VILLAFUERTE MD Bearing Press Machine Operator n/a Pre-Operative Diagnosis HYPERTROPHY NASAL PSSAGES Post-Operative Diagnosis same Post-Op Procedure Note Date of Procedure: April 16, 2021 Name of Procedure Performed: right ESS, Bialt Red of Inf Turbs Description & Findings Description and Findings: n/a Anesthesia Type get Estimated Blood Loss minimal Packing none. Specimen(s) collected/removed aeroibic anaerobic and fungal cultures right maxillary sinus CAIT VILLAFUERTE MD April 16, 2021 09:08
[2021-04-16] MEDS ORDERED: NEOSTIGMINE 3 MG/3 ML VIAL ONE (09:12)
[2021-04-16] MEDS ORDERED: ONDANSETRON 4 MG/2 ML (SDV) Z0FRAN ONE ×2 (09:12→09:20)
[2021-04-16] MEDS ORDERED: GLYCOPYRROLATE 0.2 MG/ML (ROBINUL) 2 ML VIAL ONE (09:12)
[2021-04-16] MEDS ORDERED: ROCURONIUM 10 MG/ML 5 ML SYRINGE IV ONE (09:14)
[2021-04-16] MEDS ORDERED: D5 1/2 NS W/KCL 20 MEQ/L 1,000 ML IV SCH (09:15)
[2021-04-16] MEDS ORDERED: HYDROcodone/APAP 5 MG/325 MG (LORTAB) TAB PO PRN (09:15)
[2021-04-16] MEDS ORDERED: ACETAMINOPHEN 325 MG TABLET PO PRN (09:15)
[2021-04-16] MEDS ORDERED: predniSONE 20 MG TAB PO ONE (09:15)
[2021-04-16] MEDS ORDERED: morphine INJ 10 MG/ML 1ML (SYR OR VIAL) IVP ONE (09:30)
[2021-04-16] MEDS: ONDANSETRON 4 MG/2 ML (SDV) Z0FRAN IVP PRN ×2 (09:31→09:49)
[2021-04-16] MEDS ORDERED: ACHD5005 PO (10:37)
[2021-04-16] MEDS ORDERED: PRD20T PO (10:37)
[2021-04-16] MEDS ORDERED: PENI500T PO (10:37)
--- NOTE | 2021-04-16 11:00 | Anesthesia-General Post-Op ---
General Patient Condition Mental Status/LOC: Same as Preop Cardiovascular: Satisfactory Nausea/Vomiting: Absent Respiratory: Satisfactory Pain: Controlled Complications: Absent Post Op Complications Complications None Follow Up Care/Instructions Patient Instructions None needed. Anesthesia/Patient Condition Patient Condition Patient is doing well, no complaints, stable vital signs, no apparent adverse anesthesia problems. TRICE ROACH DO April 16, 2021 11:00
== END 2021-04-16 11:43 | disposition home or self-care (01) ==
LOC: SDC 07:05
PROVIDERS: ATTEND Otolaryngology Otolaryngology/Facial Plastic Surgery
DX: J32.4 Chronic pansinusitis (principal); J34.3 Hypertrophy of nasal turbinates; R09.81 Nasal congestion; K21.9 Gastro-esophageal reflux disease without esophagitis; I48.91 Unspecified atrial fibrillation; G47.33 Obstructive sleep apnea (adult) (pediatric); F41.9 Anxiety disorder, unspecified; F32.9 Major depressive disorder, single episode, unspecified; Z99.89 Dependence on other enabling machines and devices; Z20.822 Contact with and (suspected) exposure to COVID-19; Z79.899 Other long term (current) drug therapy
CPT/HCPCS: 87070; 87075; 87077; 87081; 87101; 87185; 87205

== ENCOUNTER → 2021-05-21 | Outpatient (CLI) | payer MEDICARE ==
[~2021-05-21] MED LIST changes: +ACHD5005 PO; +PENI500T PO; +PRD20T PO
== END ==
LOC: CARD 09:30
PROVIDERS: ATTEND Internal Medicine Cardiovascular Disease
DX: I34.0 Nonrheumatic mitral (valve) insufficiency (principal); I10 Essential (primary) hypertension; I25.10 Atherosclerotic heart disease of native coronary artery without angina pectoris
CPT/HCPCS: 93306

== ENCOUNTER → 2021-07-16 | Outpatient (CLI) | payer MEDICARE ==
--- NOTE | 2021-07-16 13:52 | Diagnostic Imaging Report ---
PROCEDURE: CT Sinus w/o Contrast. TECHNIQUE: Multiple contiguous axial images were obtained through the sinuses without the use of intravenous contrast. Coronal reformations were performed. All CT scans use one or more of the following dose optimizing techniques: Automated exposure control, MA and/or KvP adjustment based on a patient size and exam type, or iterative reconstruction. INDICATION: Chronic sinus infections for 2-3 months. Symptoms not improving. COMPARISON: 02/17/2021. FINDINGS: There is improved aeration in the right maxillary sinus compared to the prior exam with persistent concentric mucosal thickening and fluid level within the right maxillary sinus. Interval surgical changes are noted in the medial wall of the right maxillary sinus. There is also moderate mucosal thickening involving the right ethmoid sinuses. The remainder of the paranasal sinuses are clear. The right frontal sinus is hypoplastic. The right ostiomeatal complex is occluded secondary to mucosal thickening. The left ostiomeatal complex is patent. The mastoid air cells are well pneumatized. The bony nasal septum is midline. No acute facial fractures. The globes and orbits are symmetric and unremarkable. Included intracranial contents show no acute abnormalities. The included soft tissues of the head are normal in appearance. IMPRESSION: 1. Overall improved aeration in the paranasal sinuses with persistent sinus disease involving the right maxillary sinus and to a lesser extent the right ethmoid sinuses. Interval postsurgical changes are noted in the medial wall of the right maxillary sinus. Recommend continued follow-up as indicated. Dictated by: Dictated on workstation # [id number]
== END ==
LOC: RAD FS 12:52
PROVIDERS: ATTEND Otolaryngology Otolaryngology/Facial Plastic Surgery
DX: J32.0 Chronic maxillary sinusitis (principal); J32.2 Chronic ethmoidal sinusitis; Z98.890 Other specified postprocedural states
CPT/HCPCS: 70486

== ENCOUNTER → 2021-08-04 | Outpatient (CLI) | payer MEDICARE ==
[~2021-08-04] VITALS: Ht 170 cm; Wt 77.0 kg
[~2021-08-04] MED LIST changes: +CATHETER FLUSH 10 ML SYR IV PRN; +REGADENOSON 0.4 MG/5 ML SYR (LEXISCAN) IV ONE
[2021-08-04 09:09] VITALS: BP 140/80
--- NOTE | 2021-08-04 11:25 | Cardiology Stress Test Report ---
Stress Test Report Date of Procedure/Referring: Date of Procedure: Aug 04, 2021 PCP Tay Bobby MD Admitting Physician Bryan Phelps MD Indications: HTN Baseline Heart Rate: 60 Baseline Blood Pressure: Blood Pressure Systolic: 140 Blood Pressure Diastolic: 80 Baseline Vitals Vital Signs Date Time Temp Pulse Resp B/P (MAP) Pulse Ox O2 Delivery O2 Flow Rate FiO2 08/04/21 09:09 57 18 140/80 (100) 98 Room Air Baseline EKG: Baseline EKG: NSR Summary After explaining the procedure to the patient, he signed a consent and then brought to the stress nuclear laboratory. Patient received 0.4 mg Lexiscan for stress test, ECG, heart rate and blood pressure were monitored continuously. Resting and stress dose of radio tracer were injected, imaging was acquired and reviewed in short axis, horizontal long axis and vertical long axis views. TID: 0.9 SSS: 5 SDS: 5 EF: 72 1. Patient tolerated Lexiscan well 2. Reversible ischemia involving the anterior wall 3. Normal left ventricular size, EF 72% TAY BOBBY MD Aug 04, 2021 11:25
== END ==
LOC: CARD 07:45
PROVIDERS: ATTEND Internal Medicine Cardiovascular Disease
DX: I10 Essential (primary) hypertension (principal); I25.10 Atherosclerotic heart disease of native coronary artery without angina pectoris
CPT/HCPCS: 78452; 93017; A9502

== ENCOUNTER 2021-08-18 09:00 | Day surgery (SDC) | payer MEDICARE ==
[2021-08-18] VITALS (11 sets, daily range): BP systolic 92–141; BP diastolic 57–75
[~2021-08-18] VITALS: Ht 170 cm; Wt 77.0 kg
[2021-08-18 07:21] LABS: HEMATOCRIT 44 % (40-54); HEMOGLOBIN 14.4 g/dL (13.3-17.7); MEAN CORPUSCULAR HEMOGLOBIN 30 pg (25-34); MEAN CORPUSCULAR HGB CONC 33 g/dL (32-36); MEAN CORPUSCULAR VOLUME 93 fL (80-99); MEAN PLATELET VOLUME 8.6 fL (9.0-12.2); PLATELET COUNT 281 10^3/uL (130-400); WHITE BLOOD COUNT 11.5 10^3/uL (4.3-11.0)
[2021-08-18 07:33] LABS: PROTHROMBIN TIME PATIENT 13.3 SEC (12.2-14.7)
--- NOTE | 2021-08-18 07:40 | Diagnostic Imaging Report ---
Indication: Abnormal stress test, chest pain COMPARISON: 04/13/2021 TECHNIQUE: Single radiograph of the chest dated 08/18/2021 FINDINGS: Loop recorder is again seen overlying the left lower chest. The cardiac silhouette is within normal limits in size. No significant pulmonary vascular congestion. Prominent interstitial markings are again noted within the bilateral mid and lower lungs, appearing similar to the prior examination. No new focal pulmonary opacity. No pleural effusion. No pneumothorax. No acute osseous abnormality. IMPRESSION: Stable appearing examination demonstrating background chronic interstitial lung changes without superimposed acute cardiopulmonary abnormality. Dictated by: Dictated on workstation # [id number]
[2021-08-18 07:44] LABS: BILIRUBIN,TOTAL 0.5 MG/DL (0.1-1.0); CALCIUM 9.6 MG/DL (8.5-10.1); CREATININE SERUM 0.93 MG/DL (0.60-1.30); POTASSIUM 3.9 MMOL/L (3.6-5.0); TOTAL PROTEIN 7.1 GM/DL (6.4-8.2)
[~2021-08-18 09:00] MED LIST changes: +ACET325T38 PO; +CALC600T91 PO; -CATHETER FLUSH 10 ML SYR IV PRN; +CITA40TA11 PO; +DIPH1TAB25 PO; +FLUT9.9S NS; +HEParin 1000 UNIT/ML (10ML VIAL) FOR BOLUS ONE; +LIDOCAINE 1% INJ 20 ML 20 ML VIAL ONE; +MELO15TA14 PO; +MIDAZOLAM 5 MG/5 ML (VERSED) VIAL ONE; +NS IV 1000 ML 1,000 ML IV SCH; +NS IV 1000 ML 3,000 ML ONE; +OMEP20TA7 PO; -REGADENOSON 0.4 MG/5 ML SYR (LEXISCAN) IV ONE; +TRM50T PO; +fentaNYL INJ 100 MCG/2 ML AMP ONE
[2021-08-18] MEDS ORDERED: NITRO DRIP 25000 MCG/D5W 250 ML IV ONE (09:06)
[2021-08-18] MEDS ORDERED: VERAPAMIL 5 MG/2 ML (CALAN) VIAL IV ONE (09:06)
--- NOTE | 2021-08-18 09:16 | Conscious Sedation/ASA ---
Conscious Sedation Pre-Proced Time 09:16 ASA Score 3 For ASA 3 and 4: Consider anesthesia and medical clearance. Also, for patients with a history of failed moderate sedation consider anesthesia. Airway Lungs Heart ASA score ASA 1: a normal healthy patient ASA 2: a patient with a mild systemic disease (mid diabetes, controlled hypertension, obesity x ASA 3: a patient with a severe systemic disease that limits activity (angina, COPD, prior Myocardial infarction) ASA 4: a patient with an incapacitating disease that is a constant threat to life (CHF, renal failure) ASA 5: a moribund patient not expected to survive 24 hrs. (ruptured aneurysm) ASA 6: a declared brain- patient whose organs are being harvested. For emergent operations, add the letter E after the classification Mallampati Classification Grade 3 Sedation Plan Analgesia, Amnesia, Plan communicated to team members, Discussed options with patient/fam, Discussed risks with patient/fam The patient is an appropriate candidate to undergo the planned procedure, sedation, and anesthesia. The patient immediately re-assessed prior to indication. TAY BARKLEY MD Aug 18, 2021 09:16
--- NOTE | 2021-08-18 09:43 | Discharge Inst-Post CATH ---
Discharge Inst-CATH/EP Problems Reviewed?: Yes Post Cardiac Cath/EP D/C Inst Follow Up/Plan Appointment with Dr. Bobby's office in 2 to 4 weeks <b>CARDIAC CATH/EP PROCEDURE DISCHARGE INSTRUCTIONS</b> ACTIVITY * Go Home directly and rest. * Limit activity of the leg (or wrist if it was used) for 7 days including aer obics, swimming, jogging, bicycling, etc. * Restrict stair-climbing for 7 days if possible, if not, climb up with your non-cath leg, then bring together on the same step. * Avoid lifting, pushing, pulling or excessive movement of the affected extremi ty for 7 days. * Customary sexual activity may be resumed after 2 days-use caution not to use a position that strains or causes pain to the affected extremity. * No driving for 24 hours. * NO SMOKING. * Avoid straining for bowel movements for 7 days. * Gentle walking on level ground is allowed. * Returning to work will depend on the type of procedure and the results. Your doctor will discuss this with you. CALL YOUR DOCTOR FOR ANY OF THE FOLLOWING: *If bleeding from the puncture site occurs- Apply gentle pressure to site with clean cloth and call your doctor or EMS. * If a knot or lump forms under the skin, increases in size, or causes pain. * If bruising appears to be worsening or moving further down your leg instead of disappearing. * Temperature above 101 F. CARE OF YOUR GROIN INCISION; * Bruising or purple discoloration of the skin near the puncture site is common. * You may shower only, no bathtub bathing for 5 days. Be careful to avoid slipping as your leg may feel stiff. * If a closure device was used on your femoral artery, please see the attached guide regarding care of the device and your leg. * Leave dressing on FOR 24 hours. CARE OF YOUR WRIST INCISION; * Bruising or purple discoloration of the skin near the puncture site is common. * You may shower. * DO NOT submerge wrist. * Leave dressing on FOR 24 hours. TAY BOBBY MD Aug 18, 2021 09:43
[2021-08-18] MEDS ORDERED: NS IV 1000 ML 1,000 ML IV SCH (09:45)
[2021-08-18] MEDS ORDERED: PATIENT MAY USE OWN MEDS, ALL PO SCH (09:45)
--- NOTE | 2021-08-18 09:49 | Cardiac Cath Report ---
Cardiac Cath Report Physician (s)/Senior Clinical Data Coordinator (s) Physician TAY BARKLEY MD Pre-Procedure Diagnosis Pre-Procedure Diagnosis: Coronary artery disease Post-Procedure Note Procedure Start Date: Aug 18, 2021 Name of Procedure: Left heart catheterization Findings/Procedure Note PROCEDURE NOTE: 71 years old gentleman with history of hypertension, hyper lipidemia, had an abnormal stress test as scheduled for cardiac catheterization possible PTCA. After explaining the procedure to the patient, all pros and cons were explained, all questions were answered. The patient signed the consent and then he was placed on the cardiac catheterization laboratory. Groin was prepped SL fashion local anesthesia was used. Sheath placed in the right radial artery, I had difficulty advancing the catheter and on fluoroscopy it appeared that the wire a nd the catheter were making a loop. After advancing the catheter patient became significantly uncomfortable in his right arm subsequently I decided to abort the attempt from the right arm the catheter was removed. Right femoral artery. Reed right and left catheter were used to access the coronary system, Reed right catheter was advanced in the right brachiocephalic artery and runoff to evaluate the right radial and brachial artery was done. Pigtail was used to access the left ventricular cavity. Left ventriculogram was not done, pressure was measured At the end of the procedure the sheath was removed. Closure device was deployed in the right groin, vascular band was used in the right arm FINDINGS: Hemodynamics LV 104/16, end-diastolic pressure of 16 Aorta 107/52 mean of 72 ANATOMY: Left Main is free of obstructive disease Left Anterior Descending slightly tortuous with mild disease nonobstructive disease Left Circumflex has no significant obstructive disease Right Coronary Artery has no significant obstructive disease LV Gram was not done, pressure was measured CONCLUSION: 1. Mild coronary artery disease nonobstructive disease 2. Normal left ventricular end-diastolic pressure DISCUSSION AND RECOMMENDATION: Medical therapy is recommended no intervention is warranted Anesthesia Type: Conscious Sedation Estimated blood loss (mL): 25 ml Contrast Amount: 35 ml Total Radiation Dose: 300 mgy Post-Procedure Diagnosis Post-operative diagnosis: Coronary artery disease Hypertension Hyperlipidemia Paroxysmal atrial tachycardia TAY BARKLEY MD Aug 18, 2021 09:48
== END 2021-08-18 14:15 | disposition home or self-care (01) ==
LOC: SDC 10:31 → CATH 14:15
PROVIDERS: ATTEND Internal Medicine Cardiovascular Disease
DX: I25.10 Atherosclerotic heart disease of native coronary artery without angina pectoris (principal); I10 Essential (primary) hypertension; E78.5 Hyperlipidemia, unspecified; I47.1 Supraventricular tachycardia; G47.33 Obstructive sleep apnea (adult) (pediatric); I48.0 Paroxysmal atrial fibrillation; J44.9 Chronic obstructive pulmonary disease, unspecified; I49.5 Sick sinus syndrome; Z87.891 Personal history of nicotine dependence; Z79.899 Other long term (current) drug therapy; Z85.46 Personal history of malignant neoplasm of prostate
CPT/HCPCS: 36140; 71045; 80053; 80061; 85027; 85610; 85730; 87081; 93458; C1760; C1769; C1894 ×2; 36415

== ENCOUNTER 2023-02-14 10:26 | Outpatient (RCR) | payer MEDICARE ==
[~2023-02-14 10:26] MED LIST changes: -CITA10TA7 PO; +CITA10TA9 PO; -CITA40TA11 PO; +CITA40TA13 PO; -HEParin 1000 UNIT/ML (10ML VIAL) FOR BOLUS ONE; -LIDOCAINE 1% INJ 20 ML 20 ML VIAL ONE; -MIDAZOLAM 5 MG/5 ML (VERSED) VIAL ONE; -NS IV 1000 ML 1,000 ML IV SCH; -NS IV 1000 ML 3,000 ML ONE; +OMEP20TA56 PO; -OMEP20TA7 PO; -fentaNYL INJ 100 MCG/2 ML AMP ONE
== END 2023-02-17 | disposition home or self-care (01) ==
LOC: ONC 10:26
PROVIDERS: ATTEND Internal Medicine Hematology & Oncology
DX: C61 Malignant neoplasm of prostate (principal); J44.9 Chronic obstructive pulmonary disease, unspecified; I34.0 Nonrheumatic mitral (valve) insufficiency; G47.00 Insomnia, unspecified; R42 Dizziness and giddiness
CPT/HCPCS: 84153; 84403

== ENCOUNTER → 2023-05-11 | Outpatient (CLI) | payer MEDICARE ==
[~2023-05-11] MED LIST changes: +CATHETER FLUSH 10 ML SYR IV PRN; +HOLD METFORMIN - RECEIVED CONTRAST 20 ML VIAL IV SCH; +IOHEXOL 350 MG/ML 100 ML (OMNIPAQUE 350) VIAL IV ONE; +NS 100 ML (IVPB) BAG IV ONE
[2023-05-11 11:11] LABS: CREATININE SERUM 1.1 MG/DL (0.60-1.30)
--- NOTE | 2023-05-11 13:03 | Diagnostic Imaging Report ---
PROCEDURE: CT abdomen and pelvis with and without contrast. TECHNIQUE: Precontrast acquisitions were acquired through the abdomen and pelvis. Multiple contiguous axial images were obtained through the abdomen and pelvis after the administration of intravenous contrast. Auto Exposure Controls were utilized during the CT exam to meet ALARA standards for radiation dose reduction. INDICATION: Hydronephrosis and prostate carcinoma. CORRELATION is made with prior CT from 01/24/2019. Lung bases demonstrate interstitial fibrotic scarring in the lower lobes as well as the right middle lobe and lingula. No discrete liver mass is detected. Gallbladder is unremarkable. There is no biliary ductal dilatation. Pancreas and spleen are unremarkable. No adrenal mass is detected. Right kidney is unremarkable. There is a fairly significant left-sided hydroureteronephrosis. The dilated left ureter is traced into the pelvis where there is a tiny 1 to 2 mm calculus in the distal left ureter approximately 2 to 3 cm proximal to the UVJ. No bladder calculi are seen. Aorta is nonaneurysmal. There is a fat-containing umbilical hernia. Bowel loops are normal caliber without evidence of obstruction. There is significant diverticulosis of the sigmoid and descending colon but no evidence of acute diverticulitis. There is no ascites. Bladder is unremarkable. There are fiducial markers within the prostate gland. There are bilateral fat-containing inguinal hernias. No definite abdominal or pelvic lymphadenopathy is detected. IMPRESSION: 1. A 1 to 2 mm distal left ureteric calculus producing moderate hydroureteronephrosis. 2. Uncomplicated diverticulosis. 3. Fat-containing umbilical and bilateral inguinal hernias. Dictated by: Dictated on workstation # [id number]
== END ==
LOC: LAB FS 10:13
PROVIDERS: ATTEND Urology
DX: N13.30 Unspecified hydronephrosis (principal)
CPT/HCPCS: 36415; 74178; 82565; 84520; Q9967

== ENCOUNTER 2023-08-02 09:04 | Outpatient (CLI) | payer MEDICARE ==
[~2023-08-02] VITALS: Ht 170.2 cm; Wt 88.2 kg
[~2023-08-02 09:04] MED LIST changes: -CATHETER FLUSH 10 ML SYR IV PRN; -HOLD METFORMIN - RECEIVED CONTRAST 20 ML VIAL IV SCH; -IOHEXOL 350 MG/ML 100 ML (OMNIPAQUE 350) VIAL IV ONE; -NS 100 ML (IVPB) BAG IV ONE
[2023-08-02 09:42] VITALS: BP 153/76
--- NOTE | 2023-08-02 09:44 | Physical Therapy Pre-Op Eval ---
PT Pre-Surgical Assessment Type of Surgery Type of Surgery: right TKA Prior Level of Function Current Living Status: Spouse Locomotion (Upon Admit): Independent PLOF DME: None Subjective Subjective Pt reports he was given home exercise by Dr. Neff and has tried them a few times. Home: Single Level Current Living Status: Spouse Entry Into Home: Stairs With Railing Steps Into Home: 3 ROM ROM: WFL Pt has right knee AROM 0-120 Strength Strength: WFL Pt has good right quadricips, hamstrings, and hip strength. Gait Gait (FIM): 7 Gait Distance (FIM): 7 Distance: community distance Gait Assistive Device: None Right Lower Extremity: Right Weight Bearing/Tolerated Treatment Rendered Treatment: Patient instructed in assistive device, supported ambulation. Patient instructed in and given written program of ROM and strengthening exercises to be preformed post-op. Patient instructed in movement precautions where applicable. Patient demonstrates understandings of post-operative therapy protocol including gait pattern and exercise program. Pre-operative instruction completed; await physical therapy orders after surgery. Treatment Goal Met: Yes Assessment Goals Acheived: I Ambulation w/ FWW Charges/GCodes Time In: 899 Time Out: 914 Total Billed Treatment Time: 15 Total Billed Treatment visit, evaluation low complexity G Codes Necessary: No ADAN MILLER PT Aug 02, 2023 09:44
[2023-08-02] MEDS ORDERED: TREP1VIA IJ (10:59)
[2023-08-02] MEDS ORDERED: ASPI-999 PO (10:59)
== END 2023-08-03 09:33 ==
LOC: PREOP 09:04
PROVIDERS: ATTEND Orthopaedic Surgery
DX: Z01.818 Encounter for other preprocedural examination (principal); M17.11 Unilateral primary osteoarthritis, right knee

== ENCOUNTER → 2023-08-07 | Outpatient (CLI) | payer MEDICARE ==
[~2023-08-07] MED LIST changes: +ASPI-999 PO; +TREP1VIA IJ
--- NOTE | 2023-08-07 16:59 | Diagnostic Imaging Report ---
CLINICAL INDICATIONS: Patient with chronic sinusitis. 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 EXAM: Axial CT scan of the maxillofacial structures without IV contrast . Coronal and sagittal reformations were performed. Auto Exposure Controls were utilized during the CT exam to meet ALARA standards for radiation dose reduction. COMPARISON: CT scan of the sinuses dated 07/16/2021. FINDINGS: PARANASAL SINUSES: FRONTAL: Unremarkable. ETHMOID: Unremarkable. MAXILLARY: There is moderate mucosal thickening and concern for fluid which has decreased in size in the interim. The left maxillary sinus is clear. SPHENOID: Unremarkable. OTHER PARANASAL SINUS FINDINGS: There are postop changes to the paranasal sinuses with right ethmoidectomy, right medial wall antrostomy, right uncinectomy and partial resection of the right middle nasal turbinate. NASAL SEPTUM: Slightly tortuous nasal septum is noted. VISUALIZED TEMPORAL BONE STRUCTURES: Unremarkable. BONY STRUCTURES: Stable chronic defect involving the anterior wall left orbit with a small amount of fat extending into the anterior upper left ethmoid sinus region which is stable. EXTRACRANIAL SOFT TISSUE/ ORBITS: Unremarkable. IMPRESSION: 1: There is moderate right maxillary sinus disease which is slightly decreased in the interim. 2: Again seen are postop changes to the right paranasal sinus region. 3: Stable chronic focal defect involving the anterior medial wall of the left orbit with a small amount of orbital fat extending into the upper anterior left ethmoid sinus. Dictated by: Dictated on workstation # [id number]
== END ==
LOC: RAD FS 08:10
PROVIDERS: ATTEND Otolaryngology Otolaryngology/Facial Plastic Surgery
DX: J32.0 Chronic maxillary sinusitis (principal); Z98.890 Other specified postprocedural states
CPT/HCPCS: 70486

== ENCOUNTER 2023-08-13 17:48 | Inpatient (IN) | payer MEDICARE ==
[~2023-08-13] VITALS: Ht 170.2 cm; Wt 90.7 kg
[~2023-08-13 17:48] MED LIST changes: -FLUT9.9S NS; +FLUT9.9S NSEACH
[2023-08-13 18:10] LABS: BASOPHILS % (AUTO) 0 % (0-10); EOSINOPHILS # (AUTO) 0.6 10^3/uL (0.0-0.3); EOSINOPHILS % (AUTO) 7 % (0-10); HEMATOCRIT 37 % (40-54); HEMOGLOBIN 12.1 g/dL (13.3-17.7); LYMPHOCYTES # (AUTO) 0.9 10^3/uL (1.0-4.0); LYMPHOCYTES % (AUTO) 11 % (12-44); MEAN CORPUSCULAR HEMOGLOBIN 30 pg (25-34); MEAN CORPUSCULAR HGB CONC 32 g/dL (32-36); MEAN CORPUSCULAR VOLUME 91 fL (80-99); MEAN PLATELET VOLUME 8.4 fL (9.0-12.2); MONOCYTES # (AUTO) 0.8 10^3/uL (0.0-1.0); MONOCYTES % (AUTO) 9 % (0-12); NEUTROPHILS # (AUTO) 6.5 10^3/uL (1.8-7.8); NEUTROPHILS % (AUTO) 73 % (42-75); PLATELET COUNT 244 10^3/uL (130-400); WHITE BLOOD COUNT 8.9 10^3/uL (4.3-11.0)
[2023-08-13] MEDS ORDERED: RT-Ipratropium/Albuterol NEB 3 ML VIAL INH ONE (18:15)
--- NOTE | 2023-08-13 18:21 | Diagnostic Imaging Report ---
INDICATION: Shortness of breath, postop. COMPARISON: 08/18/2021. FINDINGS: There are new patchy multifocal nodular interstitial type infiltrates consistent with nonspecific infectious disease or heterogeneous pulmonary edema. The heart size is within normal limits. There is no effusion or pneumothorax. IMPRESSION: New multifocal pulmonary opacities favored to reflect pneumonia. Stable heart size with no pleural pathology. Dictated by: Dictated on workstation # [id number]
[2023-08-13 18:25] LABS: BILIRUBIN,URINE NEGATIVE (NEGATIVE); CLARITY,URINE CLEAR; COLOR,URINE YELLOW; GLUCOSE, URINE (UA) NEGATIVE (NEGATIVE); KETONES,URINE NEGATIVE (NEGATIVE); LEUKOCYTE ESTERASE ,URINE NEGATIVE (NEGATIVE); NITRITE,URINE NEGATIVE (NEGATIVE); PH,URINE 7.5 (5-9); PROTEIN,URINE NEGATIVE (NEGATIVE)
[2023-08-13 18:26] LABS: BACTERIA,URINE TRACE /HPF
[2023-08-13 18:29] LABS: PROTHROMBIN TIME PATIENT 13.1 SEC (12.2-14.7)
[2023-08-13 18:30] LABS: ALANINE AMINOTRANSFERASE 10 U/L (0-55); ALBUMIN 3.4 GM/DL (3.2-4.5); ALKALINE PHOSPHATASE 54 U/L (40-136); BILIRUBIN,TOTAL 0.5 MG/DL (0.1-1.0); BUN/CREATININE RATIO 11; CALCIUM 9.1 MG/DL (8.5-10.1); CARBON DIOXIDE 28 MMOL/L (21-32); CHLORIDE 101 MMOL/L (98-107); CREATININE SERUM 1.25 MG/DL (0.60-1.30); GFR ESTIMATED 61; GLUCOSE 97 MG/DL (70-105); POTASSIUM 4.4 MMOL/L (3.6-5.0); SODIUM 138 MMOL/L (135-145)
[2023-08-13 18:37] LABS: FIBRIN DEGRADATION PRODUCTS 1.84 UG/ML (0.00-0.49)
--- NOTE | 2023-08-13 18:51 | ED Respiratory ---
General Chief Complaint: Respiratory Problems Stated Complaint: SOA Nursing Triage Note: Patient c/o increased shortness of breath that started 2 days ago. Patient states he had a Rt. knee replacement on Monday. Patient states his oxygen saturation was low after surgery and states he was discharged from the hospital with home O2. Patient states he has a chronic cough d/t pulmonary fibrosis and denies any change in his cough. Patient denies any fevers, chest pain, or back pain. Patient is 98% on 2 liters. Source: patient, family (), RN notes reviewed Exam Limitations: no limitations History of Present Illness Date Seen by Provider: Aug 13, 2023 Time Seen by Provider: 17:57 Initial Comments 73-year-old male patient with history of pulmonary fibrosis without home oxygen had right knee replacement 5 days ago and because of hypoxia discharged home with 2 L of home oxygen. Patient complaining of increasing shortness of breath for the last 2 days even with oxygen and is stated he gets shortness of breath with mild activity like walking to the bathroom and his O2 sat drops to 82% and without oxygen he dropped to 62%. Patient complaining of episode of palpitation during shortness of breath. Patient stated he has had chronic cough because of pulmonary fibrosis without new change. Patient denies fever, chest pain, myalgia, sick contact. Patient denies history of DVT and PE and stated he had 1 dose of Lovenox after his surgery and currently taking aspirin daily. Allergies and Home Medications Allergies Coded Allergies: hydrocodone (Verified Allergy, Unknown, Itching, 08/02/23) oxycodone (Verified Allergy, Unknown, Itching, 08/02/23) Patient Home Medication List Home Medication List Reviewed: Yes Acetaminophen (Tylenol) 325 Mg Tablet, 650 MG PO Q6H PRN for PAIN-MILD (1-4), (Reported) Entered as Reported by: VANESSA SAENZ on 08/18/21 0818 Albuterol Sulfate (Ventolin Hfa) 1 Puff Puff, 2 PUFF IH Q4H PRN for WHEEZING, (Reported) Entered as Reported by: FREDERICK AKHTAR on 04/25/18 1554 Allopurinol (Allopurinol) 300 Mg Tablet, 150 MG PO DAILY, (Reported) Entered as Reported by: FREDERICK AKHTAR on 04/25/18 1554 Aspirin (Aspirin) 81 Mg Tab.chew, 81 MG PO, (Reported) Entered as Reported by: Heidi Coles on 08/02/23 1059 Bicalutamide (Bicalutamide) 50 Mg Tablet, 50 MG PO HS, (Reported) Entered as Reported by: FREDERICK AKHTAR on 04/25/18 1550 Calcium Carbonate (Calcium) 600 Mg Tablet, 600 MG PO DAILY, (Reported) Entered as Reported by: VANESSA SAENZ on 08/18/21817 Cetirizine HCl (Cetirizine HCl) 10 Mg Tablet, 10 MG PO HS, (Reported) Entered as Reported by: FREDERICK AKHTAR on 04/25/18 1554 Citalopram Hydrobromide (Citalopram HBr) 40 Mg Tablet, 40 MG PO DAILY, (Reported) Entered as Reported by: VANESSA SAENZ on 08/18/21817 Fluticasone Propionate (Flonase Allergy Relief) 9.9 Ml [place].susp, 1 SPRAY NS HS, (Reported) Entered as Reported by: VANESSA SAENZ on 08/18/21817 Meloxicam (Mobic) 15 Mg Tablet, 15 MG PO HS, (Reported) Entered as Reported by: VANESSA SAENZ on 08/18/21817 Nintedanib Esylate (Ofev) 100 Mg Capsule, 100 MG PO BID, (Reported) Entered as Reported by: VANESSA SAENZ on 08/18/21817 Omeprazole (Omeprazole) 20 Mg Tablet.dr, 20 MG PO DAILY, (Reported) Entered as Reported by: VANESSA SAENZ on 08/18/21817 Saw/Vit E/Sod Jaci/Lyc/Beta/Pyg (Prostate Health Caplet) 1 Each Tablet, 1 EACH PO BID, (Reported) Entered as Reported by: VANESSA SAENZ on 08/18/21817 Tamsulosin HCl (Flomax) 0.4 Mg Cap, 0.4 MG PO HS, (Reported) Entered as Reported by: INGA RENEE on 03/11/19 1424 Tramadol HCl (Tramadol HCl) 50 Mg Tablet, 50 MG PO Q6H PRN for PAIN-MODERATE (5- 7), (Reported) Entered as Reported by: VANESSA SAENZ on 9/29/21 0818 Treprostinil Sodium (Treprostinil) 1 Mg/Ml Vial, 1 MG IJ, (Reported) Entered as Reported by: Heidi Coles on 08/02/23 1059 Zolpidem Tartrate (Zolpidem Tartrate) 5 Mg Tablet, 5 MG PO HS, (Reported) Entered as Reported by: FREDERICK AKHTAR on 04/25/18 1550 Discontinued Medications Diphenoxylate HCl/Atropine (Diphenoxylate-Atrop 2.5-0.025) 1 Each Tablet, 2 EACH PO QID PRN for DIARRHEA, (Reported) Discontinued Reason: No Longer Taking Entered as Reported by: VANESSA SAENZ on 08/18/21 0822 Review of Systems Review of Systems Constitutional: no symptoms reported EENTM: no symptoms reported Respiratory: see HPI Cardiovascular: see HPI, palpitations Gastrointestinal: no symptoms reported Genitourinary: no symptoms reported Musculoskeletal: see HPI Skin: no symptoms reported Psychiatric/Neurological: No Symptoms Reported Hematologic/Lymphatic: No Symptoms Reported All Other Systems Reviewed Negative Unless Noted: Yes Past Hrtnxnm-Mvgxzh-Eyafud Hx Patient Social History Tobacco Use?: No Use of E-Cig and/or Vaping dev: No Substance use?: No Alcohol Use?: Yes Alcohol type: Wine Alcohol Frequency: Once in a while Immunizations Up To Date Tetanus Booster (TDap): Unknown Seasonal Allergies Seasonal Allergies: Yes Past Medical History Surgeries: Yes (mouth cancerous tumor removal, tumor off of l hip, KNEE SCOPE, LITHOTRIPSY) Orthopedic Respiratory: Yes (pulmonary fibrosis) Sleep Apnea Currently Using CPAP: Yes Currently Using BIPAP: No Cardiac: Yes Atrial Fibrillation Neurological: No Sexually Transmitted Disease: No HIV/AIDS: No Genitourinary: Yes (prostate ca) Prostate Problems, Kidney Stones Gastrointestinal: Yes (CONTROLLED WITH MEDICATION) Gastroesophageal Reflux Musculoskeletal: Yes Arthritis, Gout Endocrine: No HEENT: Yes (GLASSES, PARTIAL PLATE) Loss of Vision: Bilateral Hearing Impairment: Denies Cancer: Yes (ROOF OF MOUTH) Prostate What Type of Treatment Did You: Radiation, Surgical Intervention Psychosocial: Yes Anxiety, Depression Integumentary: Yes (BASAL CELL) Recent Skin Changes Blood Disorders: No Adverse Reaction/Blood Tranf: No (N/A) Physical Exam Vital Signs - First Documented 08/13/23 17:50 Pulse Ox 98 Capillary Refill : Height: 5'7.00" Weight: 200lbs. 0.0oz. 90.368433nm; 30.00 BMI Method: General Appearance: mild distress Eyes: Bilateral Eye Normal Inspection, Bilateral Eye PERRL HEENT: PERRL/EOMI, normal ENT inspection, pharynx normal Neck: non-tender, full range of motion, supple, normal inspection Respiratory: chest non-tender, no respiratory distress, no accessory muscle use, rhonchi Cardiovascular: regular rate, rhythm, no edema, no gallop, no JVD, no murmur Gastrointestinal: normal bowel sounds, non tender, soft Extremities: non-tender, other (Right lower extremity in post op surgical dressing) Skin: normal color Lymphatic: no adenopathy Focused Exam Lactate Level 08/13/23 18:00: Lactic Acid Level 0.87 Lactic Acid Level Laboratory Tests Test 08/13/23 18:00 Lactic Acid Level 0.87 MMOL/L (0.50-2.00) Progress/Results/Core Measures Suspected Sepsis SIRS Temperature: Pulse: 85 Respiratory Rate: 20 Laboratory Tests 08/13/23 18:00: White Blood Count 8.9 Blood Pressure 187 /76 Mean: 113 08/13/23 18:00: Lactic Acid Level 0.87 Laboratory Tests 08/13/23 18:00: Creatinine 1.25, INR Comment 1.0, Platelet Count 244, Total Bilirubin 0.5 Results/Orders Lab Results Laboratory Tests Test 08/13/23 18:00 08/13/23 18:03 08/13/23 18:20 Range/Units White Blood Count 8.9 4.3-11.0 10^3/uL Red Blood Count 4.08 L 4.30-5.52 10^6/uL Hemoglobin 12.1 L 13.3-17.7 g/dL Hematocrit 37 L 40-54 % Mean Corpuscular Volume 91 80-99 fL Mean Corpuscular Hemoglobin 30 25-34 pg Mean Corpuscular Hemoglobin Concent 32 32-36 g/dL Red Cell Distribution Width 14.8 H 10.0-14.5 % Platelet Count 244 130-400 10^3/uL Mean Platelet Volume 8.4 L 9.0-12.2 fL Immature Granulocyte % (Auto) 1 % Neutrophils (%) (Auto) 73 42-75 % Lymphocytes (%) (Auto) 11 L 12-44 % Monocytes (%) (Auto) 9 0-12 % Eosinophils (%) (Auto) 7 0-10 % Basophils (%) (Auto) 0 0-10 % Neutrophils # (Auto) 6.5 1.8-7.8 10^3/uL Lymphocytes # (Auto) 0.9 L 1.0-4.0 10^3/uL Monocytes # (Auto) 0.8 0.0-1.0 10^3/uL Eosinophils # (Auto) 0.6 H 0.0-0.3 10^3/uL Basophils # (Auto) 0.0 0.0-0.1 10^3/uL Immature Granulocyte # (Auto) 0.0 0.0-0.1 10^3/uL Prothrombin Time 13.1 12.2-14.7 SEC INR Comment 1.0 0.8-1.4 Activated Partial Thromboplast Time 36 H 24-35 SEC D-Dimer 1.84 H 0.00-0.49 UG/ML Sodium Level 138 135-145 MMOL/L Potassium Level 4.4 3.6-5.0 MMOL/L Chloride Level 101 98-107 MMOL/L Carbon Dioxide Level 28 21-32 MMOL/L Anion Gap 9 5-14 MMOL/L Blood Urea Nitrogen 14 7-18 MG/DL Creatinine 1.25 0.60-1.30 MG/DL Estimat Glomerular Filtration Rate 61 BUN/Creatinine Ratio 11 Glucose Level 97 70-105 MG/DL Lactic Acid Level 0.87 0.50-2.00 MMOL/L Calcium Level 9.1 8.5-10.1 MG/DL Corrected Calcium 9.6 8.5-10.1 MG/DL Total Bilirubin 0.5 0.1-1.0 MG/DL Aspartate Amino Transf (AST/SGOT) 17 5-34 U/L Alanine Aminotransferase (ALT/SGPT) 10 0-55 U/L Alkaline Phosphatase 54 40-136 U/L Troponin I < 0.30 <0.30 NG/ML Pro-B-Type Natriuretic Peptide 2014.0 H <125.0 PG/ML Total Protein 7.0 6.4-8.2 GM/DL Albumin 3.4 3.2-4.5 GM/DL SARS-CoV-2 RNA (RT-PCR) Not Detected Not Detecte Urine Color YELLOW Urine Clarity CLEAR Urine pH 7.5 5-9 Urine Specific [place] 1.010 L 1.016-1.022 Urine Protein NEGATIVE NEGATIVE Urine Glucose (UA) NEGATIVE NEGATIVE Urine Ketones NEGATIVE NEGATIVE Urine Nitrite NEGATIVE NEGATIVE Urine Bilirubin NEGATIVE NEGATIVE Urine Urobilinogen 1.0 < = 1.0 MG/DL Urine Leukocyte Esterase NEGATIVE NEGATIVE Urine RBC (Auto) NEGATIVE NEGATIVE Urine RBC NONE /HPF Urine WBC 5-10 H /HPF Urine Crystals NONE /LPF Urine Bacteria TRACE /HPF Urine Casts NONE /LPF Urine Mucus NEGATIVE /LPF Urine Culture Indicated YES My Orders Orders - BRITTANY POE MD Cbc And Automated Diff (08/13/23 18:02) Comprehensive Metabolic Panel (08/13/23 18:02) Blood Culture (08/13/23 18:02) Urinalysis (08/13/23 18:02) Protime With Inr (08/13/23 18:02) Partial Thromboplastin Time (08/13/23 18:02) Chest 1 View Ap/Pa Only (08/13/23 18:02) Ed Iv/Invasive Line Start (08/13/23 18:02) O2 (08/13/23 18:02) Lactic Acid Analyzer (08/13/23 18:02) Covid 19 Inhouse Test (08/13/23 18:02) Fibrin Degradation Products (08/13/23 18:02) Troponin I Fs (08/13/23 18:02) Probnp Fs (08/13/23 18:00) Ipratropium/Albuterol Inh Soln (Ipratrop (08/13/23 18:15) Svn Small Volume Nebulizer (08/13/23 18:13) Urine Culture (08/13/23 18:20) Ct Angio Chest W (R/O Pe) (08/13/23 18:45) Iohexol Injection (Omnipaque 350 Mg/Ml 1 (08/13/23 19:00) Received Contrast (Hold Metformin- Contr (08/13/23 19:00) Ns (Ivpb) 100 Ml (Sodium Chloride 0.9% 1 (08/13/23 19:00) Ceftriaxone Iv/Im (Ceftriaxone Iv/Im) (08/13/23 20:00) Admission Order(Inpt,Obs,Sdc) (08/13/23 20:12) Hydromorphone Injection (Hydromorphone (08/13/23 20:30) Medications Given in ED Current Medications Medications Dose Ordered Sig/Keven Route Start Time Stop Time Status Last Admin Dose Admin Albuterol/ Ipratropium 3 ml ONCE ONCE INH 08/13/23 18:15 08/13/23 18:16 DC 08/13/23 18:21 3 ML Ceftriaxone Sodium 1000 mg/ Sodium Chloride 50 ml @ 100 mls/hr ONCE ONCE IV 08/13/23 20:00 08/13/23 20:29 DC 08/13/23 20:19 100 MLS/HR Hydromorphone HCl 1 mg ONCE ONCE IVP 08/13/23 20:30 08/13/23 20:31 DC 08/13/23 20:35 1 MG Iohexol 100 ml ONCE ONCE IV 08/13/23 19:00 08/13/23 19:01 DC 08/13/23 19:07 80 ML Sodium Chloride 100 ml ONCE ONCE IV 08/13/23 19:00 08/13/23 19:01 DC 08/13/23 19:07 80 ML Vital Signs/I&O 08/13/23 08/13/23 08/13/23 17:50 17:50 17:50 Temp 36.8 Pulse 85 Resp 20 B/P (MAP) 187/76 (113) Pulse Ox 98 O2 Delivery Nasal Cannula Nasal Cannula Nasal Cannula O2 Flow Rate 2.00 2.00 2.00 Capillary Refill : Blood Pressure Mean: 113 Progress Note : Progress Note 73-year-old male patient with pulmonary fibrosis and recent right knee replacement on aspirin with complaining increasing shortness of breath after discharge from hospital with oxygen because of hypoxia with increasing shortness of breath with mild activity. Patient had O2 sat of 91% on room air at arrival to ER and treated with DuoNeb. CBC, CMP, troponin, BNP, coagulation panel and D-dimer, lactic acid, UA, COVID test was ordered and reviewed by me and showed hemoglobin of 12.1 and BNP of 2000 and mild UTI. D-dimer was elevated at 1.[address] chest for PE was requested and reported by radiologist and reviewed by me and showed no PE possible new pneumonia. Patient treated with Rocephin in ER. Patient did not have shortness of breath without activity. Decided to admit patient at hospital and on-call hospitalist Dr. Jones was consulted at 2002 and accepted admission to [facility] at 2009. Patient and his updated frequently about test results and plan of care and need for admission and all questions was updated. ECG Initial ECG Impression Date: Aug 13, 2023 Initial ECG Impression Time: 18:02 Initial ECG Rate: 81 Comment EKG interpreted by me and showed sinus rhythm with occasional PVCs, VT interval of 154 and QT of 356 and QTc of 393, QRS duration of 85, no acute ST and T wave elevation. Diagnostic Imaging Diagonstic Imaging: Xray, CT Plain Films/CT/US/NM/MRI: chest Comments 1 view chest x-ray interpreted by the radiologist and reviewed by me and showed: [facility] [place], [place] NAME: BETO BURNS [facility] REC#: [id number] PT STATUS: REG ER : 1950 PHYSICIAN: BRITTANY POE MD ADMIT DATE: 08/13/23/ER FS Signed Date of Exam:08/13/23 CHEST 1 VIEW AP/PA ONLY INDICATION: Shortness of breath, postop. COMPARISON: 08/18/2021. FINDINGS: There are new patchy multifocal nodular interstitial type infiltrates consistent with nonspecific infectious disease or heterogeneous pulmonary edema. The heart size is within normal limits. There is no effusion or pneumothorax. IMPRESSION: New multifocal pulmonary opacities favored to reflect pneumonia. Stable heart size with no pleural pathology. Dictated by: Dictated on workstation # [id number] Dict: 08/13/231815 Trans: 08/13/231853 [facility] [id number] Interpreted by: TARIQ STEVENS Electronically signed by: TARIQ STEVENS 08/13/231853 CT angio chest interpreted by radiologist and reviewed by me and showed: [facility] [place] [place] NAME: BETO BURNS [facility] REC#: [id number] PT STATUS: REG ER : 1950 PHYSICIAN: BRITTANY POE MD ADMIT DATE: 08/13/23/ER FS Signed Date of Exam:08/13/23 CT ANGIO CHEST W (R/O PE) INDICATION: Shortness of air, 10 days postop. COMPARISON: None. FINDINGS: Pulmonary arterial branches are widely patent and well opacified. No pulmonary arterial embolus. Thoracic aorta patent, nonaneurysmal and is nonacute. There is progressive five lobe interstitial lung disease with subpleural honeycombing greatest in the lung bases. Bronchiectasis and patchy multifocal groundglass opacities. The groundglass densities are likely also progressive chronic lung disease but an acute infectious component could not be excluded given the progression from 2018. Heart size enlarged but unchanged. No pleural or pericardial effusion. No airspace consolidation or bronchograms. There is no pneumothorax. IMPRESSION: 1. Worsened chronic interstitial lung disease which likely also accounts for the new groundglass opacities; however, nonspecific infectious disease superimposed could not be excluded. 2. No PE or acute aortic pathology. No effusion or pneumothorax. Dictated by: Dictated on workstation # [id number] Dict: 08/13/231917 Trans: 08/13/231948 [facility] [id number] Interpreted by: TARIQ STEVENS Electronically signed by: TARIQ STEVENS 08/13/231948 Departure Communication (Admissions) Time/Spoke to Admitting Phy: 20:[address] Jones was consulted and accepted admission at 2009 Impression Primary Impression: Shortness of breath Additional Impressions: Pneumonia CHF (congestive heart failure) Hypoxia Urinary tract infection Disposition: 30 STILL A PATIENT Condition: Improved Admissions Decision to Admit Reason: Admit from ER (General) Decision to Admit/Date: Aug 13, 2023 Time/Decision to Admit Time: 20:12 Transfer Method of Transfer: EMS Departure-Patient Inst. Referrals: RIZWAN DOWD MD (PCP/Family) Primary Care Physician BRITTANY POE MD Aug 13, 2023 18:51
[2023-08-13] MEDS ORDERED: NS 100 ML (IVPB) BAG IV ONE (19:00)
[2023-08-13] MEDS ORDERED: IOHEXOL 350 MG/ML 100 ML (OMNIPAQUE 350) VIAL IV ONE (19:00)
[2023-08-13] MEDS ORDERED: HOLD METFORMIN - RECEIVED CONTRAST 20 ML VIAL IV SCH (19:00)
--- NOTE | 2023-08-13 19:40 | Diagnostic Imaging Report ---
INDICATION: Shortness of air, 10 days postop. COMPARISON: None. FINDINGS: Pulmonary arterial branches are widely patent and well opacified. No pulmonary arterial embolus. Thoracic aorta patent, nonaneurysmal and is nonacute. There is progressive five lobe interstitial lung disease with subpleural honeycombing greatest in the lung bases. Bronchiectasis and patchy multifocal groundglass opacities. The groundglass densities are likely also progressive chronic lung disease but an acute infectious component could not be excluded given the progression from 2019. Heart size enlarged but unchanged. No pleural or pericardial effusion. No airspace consolidation or bronchograms. There is no pneumothorax. IMPRESSION: 1. Worsened chronic interstitial lung disease which likely also accounts for the new groundglass opacities; however, nonspecific infectious disease superimposed could not be excluded. 2. No PE or acute aortic pathology. No effusion or pneumothorax. Dictated by: Dictated on workstation # [id number]
[2023-08-13] MEDS ORDERED: cefTRIAXone IV/IM 1,000 MG in NS (IVPB) 50 ML 50 ML IV ONE (20:00)
[2023-08-13] MEDS ORDERED: HYDROmorphone INJECTION 2 MG/ML VIAL IVP ONE (20:30)
--- NOTE | 2023-08-14 00:36 | Tele-ICU Consult ---
Progress Note New admission pneumonia versus acute HFpEF, 73 yo M No PE COVID negative WBC normal BNP elevated Video assessment completed, not in distress Diagnosis: Mild hypoxia, HTN, new admit to ICU, possible pneumonia, not in shock A total of _ 9 _ minutes of critical care time was devoted to this patient, including reviewing this patient's available data, including medical history, events of note and test results. JAE FERRELL MD Aug 14, 2023 00:36
[2023-08-14] MEDS ORDERED: ONDANSETRON INJECTION 4 MG/2 ML (SDV) IV PRN (00:45)
[2023-08-14] MEDS ORDERED: ONDANSETRON 4 MG ORAL DISSOLVE TABLET PO PRN (00:45)
[2023-08-14] MEDS ORDERED: diphenhydrAMINE 25 MG TABLET PO PRN (00:45)
[2023-08-14] MEDS ORDERED: ANTACID SUSPENSION 30 ML UDC PO PRN (00:45)
[2023-08-14] MEDS ORDERED: BISACODYL 10 MG SUPPOSITORY PR PRN (00:45)
[2023-08-14] MEDS ORDERED: MELATONIN 3 MG TABLET PO PRN (00:45)
[2023-08-14] MEDS ORDERED: HYDROmorphone INJECTION 2 MG/ML VIAL IV PRN (00:45)
[2023-08-14] MEDS ORDERED: diphenhydrAMINE INJ 50 MG/ML VIAL IVP PRN (00:45)
[2023-08-14] MEDS ORDERED: hydrALAZINE INJECTION 20 MG/ML VIAL IV PRN (00:45)
[2023-08-14] MEDS ORDERED: NS IV 500 ML 500 ML IV PRN (00:45)
[2023-08-14] MEDS ORDERED: ALPRAZolam 0.5 MG TABLET PO PRN (00:45)
[2023-08-14] MEDS ORDERED: LACTULOSE SYRUP 10GM/15ML 30ML UDC PO PRN (00:45)
[2023-08-14] MEDS ORDERED: PATIENT MAY USE OWN MEDS, ALL PO SCH (00:45)
[2023-08-14 00:52] VITALS: BP 145/78
[2023-08-14] MEDS ORDERED: CITA20TA9 PO (01:12)
[2023-08-14] MEDS ORDERED: HYDR4TAB PO (01:12)
[2023-08-14] MEDS ORDERED: TRAM50TA3 PO (01:12)
[2023-08-14] MEDS: dexAMETHasone INJ 4 MG/ML SDV IV SCH ×2 (01:24→13:10)
[2023-08-14] MEDS: DOXYCYCLINE INJECTION 100 MG in NS (IVPB) 100 ML 100 ML IV SCH ×2 (01:25→13:10)
[2023-08-14] MEDS: CEFEPIME 1,000 MG/NS 50 ML IVPB IV SCH ×8 (01:25→17:59)
[2023-08-14] MEDS ORDERED: RT-Ipratropium/Albuterol NEB 3 ML VIAL INH PRN (02:45)
[2023-08-14] MEDS: ENOXAPARIN 40 MG/0.4 ML SYRINGE SC SCH (05:48)
[2023-08-14 06:17] LABS: BASOPHILS % (AUTO) 0 % (0-10); EOSINOPHILS # (AUTO) 0.1 10^3/uL (0.0-0.3); EOSINOPHILS % (AUTO) 1 % (0-10); HEMATOCRIT 34 % (40-54); HEMOGLOBIN 11.2 g/dL (13.3-17.7); LYMPHOCYTES # (AUTO) 0.4 10^3/uL (1.0-4.0); LYMPHOCYTES % (AUTO) 5 % (12-44); MEAN CORPUSCULAR HEMOGLOBIN 30 pg (25-34); MEAN CORPUSCULAR HGB CONC 33 g/dL (32-36); MEAN CORPUSCULAR VOLUME 89 fL (80-99); MEAN PLATELET VOLUME 8.7 fL (9.0-12.2); MONOCYTES # (AUTO) 0.3 10^3/uL (0.0-1.0); MONOCYTES % (AUTO) 4 % (0-12); NEUTROPHILS # (AUTO) 7.6 10^3/uL (1.8-7.8); NEUTROPHILS % (AUTO) 88 % (42-75); PLATELET COUNT 232 10^3/uL (130-400); WHITE BLOOD COUNT 8.7 10^3/uL (4.3-11.0)
[2023-08-14 06:24] LABS: POTASSIUM 5.1 MMOL/L (3.6-5.0)
[2023-08-14 06:26] LABS: CALCIUM 8.7 MG/DL (8.5-10.1)
[2023-08-14 06:30] LABS: CREATININE SERUM 1.12 MG/DL (0.60-1.30)
[2023-08-14 06:32] LABS: MAGNESIUM 1.7 MG/DL (1.6-2.4)
[2023-08-14] MEDS: POTASSIUM CHLORIDE 20 MEQ TABLET PO SCH (06:38)
[2023-08-14] MEDS: MAGNESIUM 1 GM/100 ML IVPB 100 ML IV SCH ×3 (06:38→11:48)
[2023-08-14] MEDS: POTASSIUM CL 10MEQ/50ML IVPB 50 ML IV SCH (06:38)
[2023-08-14 06:59] LABS: ATYPICAL LYMPHOCYTES 1 %; EOSINOPHILS % (MANUAL) 2 %; LYMPHOCYTES % (MANUAL) 5 %; MONOCYTES % (MANUAL) 3 %; NEUTROPHILS % (MANUAL) 89 %; RBC MORPH NORMAL
[2023-08-14] MEDS: RT-Ipratropium/Albuterol NEB 3 ML VIAL INH SCH ×4 (07:47→20:29)
--- NOTE | 2023-08-14 08:10 | Consultation-Cardiology ---
HPI-Cardiology Cardiology Consultation: Date of Consultation 08/14/23 Time Seen by a Provider: 08:30 Date of Admission 08-13-23 Attending Physician Bryan Phelps MD Admitting Physician Admitting Physician: Jeannette Jones DO Attending Physician: Jeannette Jones DO Consulting Physician Leo Varghese MD Primary Licensed Massage Practitioner: Dr. Bobby HPI: Chief Complaint: Progressive dyspnea Mr. Burns is a 73 yr old male admitted to ICU10 from the ED with progressive dyspnea. He reports he has pulmonary fibrosis and follows with Dr. Moreno of pulmonary services at [facility]. He states he had right total knee replacement 3 days ago and became increasingly SOB following surgery requiring supplemental oxygen (had not required oxygen prior). He states he was discharged home with oxygen and SOB continued to progressively get worse from his baseline prompting him to come in. He reports his SOB is somewhat better this morning. He reports productive cough of thick yellow sputum. No c/o CP, palpitations, syncope, near syncope or LE swelling. He reports chills and feeling sweaty overnight. Review of Systems-Cardiology Review of Systems Constitutional: chills; No lightheadedness, No malaise Eyes: No vision change Ears/Nose/Throat: No epistaxis, No recent hearing loss Respiratory: As described under HPI Cardiovascular: As described under HPI Gastrointestinal: No constipation, No diarrhea; nausea; No vomiting Genitourinary: No dysuria, No hematuria Musculoskeletal: other (s/p right knee surgery ) Skin: No rash on exposed areas, No ulcerations on exposed areas Psychiatric/Neurological: No anxiety, No depression, No seizure, No focal weakness, No syncope Hematologic: No bleeding abnormalities All Other Systems Reviewed Negative Unless Noted: Yes FRM-Mokrsr-Ihhdgb Hx Patient Social History 2nd Hand Smoke Exposure: No Alcohol Use?: No Pt feels they are or have been: No Immunizations Up To Date Tetanus Booster (TDap): Unknown Date of Pneumonia Vaccine: April 13, 2018 Date of Influenza Vaccine: Sep 16, 2020 Past Medical History PMH As described under Assessment. Family Medical History Family Medical History: No reported family h/o CAD. Reported h/o mother having HTN Allergies and Home Medications Allergies Coded Allergies: hydrocodone (Verified Allergy, Unknown, Itching, 08/02/23) oxycodone (Verified Allergy, Unknown, Itching, 08/02/23) Patient Home Medication List Acetaminophen (Tylenol Extra Strength) 500 Mg Tablet, 1,000 MG PO Q8H PRN for PAIN-MILD (1-4), (Reported) Entered as Reported by: ELIDA PATRICIA on 08/14/23 115 Last Action: Reviewed Allopurinol (Allopurinol) 300 Mg Tablet, 150 MG PO HS, (Reported) Entered as Reported by: FREDERICK AKHTAR on 04/25/18 374 Last Action: Continued Aspirin (Aspirin EC) 81 Mg Tablet.dr, 81 MG PO HS, (Reported) Entered as Reported by: ELIDA PATRICIA on 08/14/231129 Last Action: Reviewed Cetirizine HCl (Cetirizine HCl) 10 Mg Tablet, 10 MG PO DAILY, (Reported) Entered as Reported by: FREDERICK AKHTAR on 04/25/181553 Last Action: Reviewed Citalopram Hydrobromide (Citalopram HBr) 20 Mg Tablet, 20 MG PO DAILY, (Reported) Entered as Reported by: BLANCA STANTON on 08/14/23111 Last Action: Continued Diphenoxylate HCl/Atropine (Diphenoxylate-Atrop 2.5-0.025) 2.5 Mg-0.025 Mg Tablet, 1 EACH PO Q6H PRN for DIARRHEA, (Reported) Entered as Reported by: ELIDA PATRICIA on 08/14/231129 Last Action: Reviewed Fluticasone Propionate (Flonase Allergy Relief) 50 Mcg/Actuation [place].susp, 1-2 SPRAYS NSEACH HS, (Reported) Entered as Reported by: VANESSA SAENZ on 08/18/21 0818 Last Action: Reviewed Hydromorphone HCl (Hydromorphone HCl) 4 Mg Tablet, 4 MG PO Q6H PRN for PAIN- SEVERE (8-10), (Reported) Entered as Reported by: BLANCA STANTON on 08/14/23111 Last Action: Reviewed Meloxicam (Meloxicam) 15 Mg Tablet, 15 MG PO HS, (Reported) Entered as Reported by: ELIDA PATRICIA on 08/14/231129 Last Action: Reviewed Nintedanib Esylate (Ofev) 100 Mg Capsule, 100 MG PO BID, (Reported) Entered as Reported by: VANESSA SAENZ on 08/18/21817 Last Action: Reviewed Omeprazole (Omeprazole) 20 Mg Capsule.dr, 20 MG PO HS, (Reported) Entered as Reported by: ELIDA PATRICIA on 08/14/23 1130 Last Action: Reviewed Tamsulosin HCl (Flomax) 0.4 Mg Cap, 0.4 MG PO HS, (Reported) Entered as Reported by: INGA RENEE on 03/11/19 1424 Last Action: Continued Tramadol HCl (Tramadol HCl) 50 Mg Tablet, 100 MG PO Q6H PRN for PAIN-MODERATE (5-7), (Reported) Entered as Reported by: BLANCA STANTON on 08/14/23 0112 Last Action: Reviewed Zolpidem Tartrate (Zolpidem Tartrate) 5 Mg Tablet, 5 MG PO HS, (Reported) Entered as Reported by: FREDERICK AKHTAR on 04/25/181549 Last Action: Continued [Treprostinil Trial] , 12 EA INH QID, (Reported) Entered as Reported by: ELIDA PATRICIA on 08/14/23 1159 Last Action: Reviewed Discontinued Medications Acetaminophen (Tylenol) 325 Mg Tablet, 650 MG PO Q6H PRN for PAIN-MILD (1-4), (Reported) Discontinued Reason: No Longer Taking Entered as Reported by: VANESSA SAENZ on 08/18/21817 Last Action: Discontinued Albuterol Sulfate (Ventolin Hfa) 1 Puff Puff, 2 PUFF IH Q4H PRN for WHEEZING, (Reported) Discontinued Reason: No Longer Taking Entered as Reported by: FREDERICK AKHTAR on 04/25/181553 Last Action: Discontinued Bicalutamide (Bicalutamide) 50 Mg Tablet, 50 MG PO HS, (Reported) Discontinued Reason: No Longer Taking Entered as Reported by: FREDERICK AKHTAR on 04/25/181549 Last Action: Discontinued Calcium Carbonate (Calcium) 600 Mg Tablet, 600 MG PO DAILY, (Reported) Discontinued Reason: No Longer Taking Entered as Reported by: VANESSA SAENZ on 08/18/21817 Last Action: Discontinued Citalopram Hydrobromide (Citalopram HBr) 40 Mg Tablet, 40 MG PO DAILY, (Reported) Discontinued Reason: New Order Entered as Reported by: VANESSA SAENZ on 08/18/21817 Last Action: Discontinued Diphenoxylate HCl/Atropine (Diphenoxylate-Atrop 2.5-0.025) 1 Each Tablet, 2 EACH PO QID PRN for DIARRHEA, (Reported) Discontinued Reason: No Longer Taking Entered as Reported by: VANSESA SAENZ on 08/18/21821 Meloxicam (Mobic) 15 Mg Tablet, 15 MG PO HS, (Reported) Discontinued Reason: Duplicate Order Entered as Reported by: VANESSA SAENZ on 08/18/21817 Last Action: Discontinued Omeprazole (Omeprazole) 20 Mg Tablet.dr, 20 MG PO DAILY, (Reported) Discontinued Reason: Duplicate Order Entered as Reported by: VANESSA SAENZ on 08/18/21817 Last Action: Discontinued Saw/Vit E/Sod Jaci/Lyc/Beta/Pyg (Prostate Health Caplet) 1 Each Tablet, 1 EACH PO BID, (Reported) Discontinued Reason: No Longer Taking Entered as Reported by: VANESSA SAENZ on 08/18/21817 Last Action: Discontinued Tramadol HCl (Tramadol HCl) 50 Mg Tablet, 50 MG PO Q6H PRN for PAIN-MODERATE (5- 7), (Reported) Discontinued Reason: New Order Entered as Reported by: VANESSA SAENZ on 08/18/21817 Last Action: Discontinued Treprostinil Sodium (Treprostinil) 1 Mg/Ml Vial, 1 MG IJ, (Reported) Discontinued Reason: No Longer Taking Entered as Reported by: Heidi Coles on 08/02/23 1059 Last Action: Discontinued Physical Exam-Cardiology Physical Exam Vital Signs/I&O 08/15/23 08/15/23 08/15/23 08/15/23 01:01 03:19 07:03 07:37 Temp 36.0 36.3 Pulse 67 89 64 70 Resp 20 16 B/P (MAP) 132/72 (92) 120/69 (86) Pulse Ox 97 95 O2 Delivery Nasal Cannula Nasal Cannula O2 Flow Rate 4.00 3.00 08/15/23 08/15/23 08/15/23 08:00 08:05 11:13 Pulse Ox 94 94 99 O2 Delivery Nasal Cannula Nasal Cannula Nasal Cannula O2 Flow Rate 2.00 2.00 2.00 08/15/23 00:00 Intake Total 1145 ml Output Total 220 ml Balance 925 ml Capillary Refill : Constitutional: AAO x 3, well-developed, well-nourished HEENT: PERRL, hearing is well preserved, oral hygience is good Neck: No carotid bruit; carotid pulses are 2 + bilaterally Respiratory: other (dminished throughout with coarse breath sounds ) Cardiovascular: regular rate-rhythm; No JVD; S1 and S2, systolic murmur Gastrointestinal: No tender; soft; No guarding; audible bowel sounds Extremities: other (dressing in place to right knee; D&I), no lower extremity edema bilateral Neurologic/Psychiatric: grossly intact (moves all extemities) Skin: No rash on exposed areas, No ulcerations on exposed areas; other (see above) Data Review Labs Laboratory Tests 08/15/23 05:13: White Blood Count 10.6, Red Blood Count 3.48L, Hemoglobin 10.2L, Hematocrit 31L, Mean Corpuscular Volume 88, Mean Corpuscular Hemoglobin 29, Mean Corpuscular Hemoglobin Concent 33, Red Cell Distribution Width 14.6H, Platelet Count 240, Mean Platelet Volume 9.0, Immature Granulocyte % (Auto) 1, Neutrophils (%) (Auto) 89H, Lymphocytes (%) (Auto) 5L, Monocytes (%) (Auto) 6, Eosinophils (%) (Auto) 0, Basophils (%) (Auto) 0, Neutrophils # (Auto) 9.4H, Lymphocytes # (Auto) 0.5L, Monocytes # (Auto) 0.6, Eosinophils # (Auto) 0.0, Basophils # (Auto) 0.0, Immature Granulocyte # (Auto) 0.1, Sodium Level 135, Potassium Level 4.9, Chloride Level 101, Carbon Dioxide Level 25, Anion Gap 9, Blood Urea Nitrogen 27H, Creatinine 1.39H, Estimat Glomerular Filtration Rate 54, BUN/Creatinine Ratio 19, Glucose Level 139H, Calcium Level 8.5, Corrected Calcium 9.2, Phosphorus Level 4.0, Magnesium Level 2.5H, Total Bilirubin 0.6, Aspartate Amino Transf (AST/SGOT) 18, Alanine Aminotransferase (ALT/SGPT) 12, Alkaline Phosphatase 38L, Total Protein 6.1L, Albumin 3.1L Microbiology 08/14/23 MRSA Screen - Final, Complete MRSA not isolated 08/13/23 Urine Culture - Preliminary, Resulted Culture In Progress 08/13/23 Blood Culture - Preliminary, Resulted Radiology NAME: BETO BURNS [facility] REC#: [id number] PT STATUS: REG ER : 1950 PHYSICIAN: BRITTANY POE MD ADMIT DATE: 08/13/23/ER FS Signed Date of Exam:08/13/23 CT ANGIO CHEST W (R/O PE) INDICATION: Shortness of air, 10 days postop. COMPARISON: None. FINDINGS: Pulmonary arterial branches are widely patent and well opacified. No pulmonary arterial embolus. Thoracic aorta patent, nonaneurysmal and is nonacute. There is progressive five lobe interstitial lung disease with subpleural honeycombing greatest in the lung bases. Bronchiectasis and patchy multifocal groundglass opacities. The groundglass densities are likely also progressive chronic lung disease but an acute infectious component could not be excluded given the progression from 2018. Heart size enlarged but unchanged. No pleural or pericardial effusion. No airspace consolidation or bronchograms. There is no pneumothorax. IMPRESSION: 1. Worsened chronic interstitial lung disease which likely also accounts for the new groundglass opacities; however, nonspecific infectious disease superimposed could not be excluded. 2. No PE or acute aortic pathology. No effusion or pneumothorax. Dictated by: Dictated on workstation # [id number] Dict: 08/13/231917 Trans: 08/13/231948 [facility] [id number] Interpreted by: TARIQ STEVENS Electronically signed by: TARIQ STEVENS 08/13/231948 NAME: BETO BURNS [facility] REC#: [id number] PT STATUS: REG ER : 1950 PHYSICIAN: BRITTANY POE MD ADMIT DATE: 08/13/23/ER FS Signed Date of Exam:08/13/23 CHEST 1 VIEW AP/PA ONLY INDICATION: Shortness of breath, postop. COMPARISON: 08/18/2021. FINDINGS: There are new patchy multifocal nodular interstitial type infiltrates consistent with nonspecific infectious disease or heterogeneous pulmonary edema. The heart size is within normal limits. There is no effusion or pneumothorax. IMPRESSION: New multifocal pulmonary opacities favored to reflect pneumonia. Stable heart size with no pleural pathology. Dictated by: Dictated on workstation # [id number] Dict: 08/13/236 Trans: 08/13/231853 [facility] [id number] Interpreted by: TARIQ STEVENS Electronically signed by: TARIQ STEVENS 08/13/234 A/P-Cardiology Assessment/Admission Diagnosis Progressive BALTAZAR - multifactorial d/t possible pneumonia; pulmonary fibrosis and possible vol overload following recent right total knee replacement H/O Coronary artery disease, - cardiac catheterization done on August 18, [address] Bobby: showing mild coronary artery disease nonobstructive disease. Patient had tortuous right brachial artery required cancellation of the procedure from the radial approach and had the procedure done through the femoral approach with excellent results. Paroxysmal atrial tachycardia/possible flutter - H/O narrow complex tachycardia - Patient had a short run of wide-complex ventricular tachycardia on May 16, 2021 for 15 beats, he was asymptomatic. - Had a loop monitor reported as atrial fibrillation. Questionable atrial flutter, underwent ablation with Dr. Thad Rodriguez on August 25, 2021 for atrial tachycardia possibly flutter. No fibrillation ablation was done. - He is followed and monitored by Dr. Rodriguez, had an ablation done with Dr. Rodriguez, was seen by Dr. Stahl and Dr. Stahl has signed off. - Loop monitor interrogation last done on March 10, 2022, it was implanted in July 2018. - No further arrhythmia was detected - loop explanted - [id number] score of 1, low risk of stroke, maintained on aspirin. - Mild degree of sinus node dysfunction per Dr. Bobby report, had a 3 seconds pause asymptomatic. Twelve-lead EKG done on May 04, 2023 with normal sinus rhythm, normal axis, no abnormality. Echocardiogram done May 2021 showing normal LV size, EF 50-55%. Mild to moderate MR, PA 40-45mmHg. Hyperlipidemia H/O Hypertension Pulmonary fibrosis and restrictive lung disease with chronic dyspnea - managed by Dr. Moreno of pulmonary services at [facility] History of dizziness and near syncope - no recent episodes were reported - Tilt table test done by Dr. Brito in June 2018 reported as positive with episode of hypotension and blood pressure was down to 43 mmHg improved with IV fluid. No further episodes of syncope. 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 Jones for this consult SHARITA CLARKE Aug 14, 2023 08:10
[2023-08-14] MEDS: FUROSEMIDE INJECTION 40 MG/4 ML VIAL IV SCH (08:48)
[2023-08-14] MEDS: DOCUSATE SODIUM 100 MG CAPSULE PO SCH ×2 (08:58→19:13)
[2023-08-14] MEDS ORDERED: CEFEPIME INJECTION 2,000 MG in NS (IVPB) 50 ML 50 ML IV SCH (09:00)
--- NOTE | 2023-08-14 09:17 | Physical Therapy Evaluation ---
PT Evaluation-General Medical Diagnosis Admission Date Aug 14, 2023 at 00:20 Medical Diagnosis: CHF/SOA Onset Date: Aug 14, 2023 Therapy Diagnosis Therapy Diagnosis: debility Height/Weight Height (Feet): 5 Height (Inches): 7.00 Weight (Pounds): 200 Weight (Ounces): 0.0 Precautions Precautions/Isolations: Fall Prevention, Standard Precautions Weight Bear Status Right Lower Extremity: Right Weight Bearing/Tolerated Left Lower Extremity: Left Weight Bearing/Tolerated Referral Physician: Robert Reason for Referral: Evaluation/Treatment Medical History Pertinent Medical History: Atrial Fib, Prostate CA Additional Medical History pulmonary fibrosis Current History ER secondary to decreased SAO2 Reviewed History: Yes Social History Current Living Status: Spouse Prior Prior Level of Function SCALE: Activities may be completed with or without assistive devices. 6-Iuskcoyjna-jgyfobs completes the activity by him/herself with no assistance from a helper. 5-Set-up or Clean-up Assistance-helper sets up or cleans up; patient completes activity. [place] assists only prior to or following the activity. 4-Supervision or Touching Assistance-helper provides verbal cues and/or touching/steadying and/or contact guard assistance as patient completes activity. Assistance may be provided throughout the activity or intermittently. 3-Partial/Moderate Assistance-helper does LESS THAN HALF the effort. [place] lifts, holds or supports trunk or limbs, but provides less than half the effort. 2-Substantial/Maximal Assistance-helper does MORE THAN HALF the effort. [place] lifts or holds trunk or limbs and provides more than half the effort. 6-Dptqsbdgj-ptinya does ALL the effort. Patient does none of the effort to complete the activity. Or, the assistance of 2 or more helpers is required for the patient to complete the activity. If activity was not attempted, code reason: 7-Patient Refused. 9-Not Applicable-not attempted and the patient did not perform the activity before the current illness, exacerbation or injury. 10-Not Attempted due to Environmental Limitations-(lack of equipment, weather restraints, etc.). 88-Not Attempted due to Medical Conditions or Safety Concerns. Bed Mobility: 6 Transfers (B,C,W/C): 6 Gait: 6 Stairs: 6 Indoor Mobility (Ambulation): Independent Stairs: Independent Prior Devices Use: Walker PT Evaluation-Current Subjective Patient agrees to PT. Patient appears anxious with having to move and his O2 to possibly decreasing. Patient on O2 5L oxymask Objective Patient Orientation: Normal For Age Attachments: Oxygen (5L) ROM/Strength ROM Lower Extremities right knee flexion 90 degrees/left LE WFL Strength Lower Extremities right LE 3+/5 grossly/left LE 4/5 grossly Integumentary/Posture Integumentary island dressing right TKR incision Bowel Incontinence: No Bladder Incontinence: No Posture WFL Neuromuscular (Tone, Coordination, Reflexes) grossly intact Sensory Vision: Wears Glasses Hearing: Functional Transfers Lying to Sitting/Side of Bed(Q: 6 Sit to Stand (QC): 5 Chair/Mqw-xb-Vkvgy Xfer(QC): 5 Gait Mode of Locomotion: Walk Anticipated Mode of Locomotion: Walk Walk 10 feet (QC): 5 Walk 50 ft with 2 Turns(QC): 5 Walk 150 ft (QC): 5 Distance: 225' Gait Assistive Device: FWW Comments/Gait Description steady reciprocal pattern Balance Sitting Static: Normal Sitting Dynamic: Normal Standing Static: Normal Standing Dynamic: Normal Assessment/Needs Patient will be seen short term by skilled PT to address right TKR exercise program and pulmonary function with functional mobility. Rehab Potential: Fair PT Short Term Goals Short Term Goals Time Frame: Aug 18, 2023 Roll Left & Right: 6 Sit to lyin Lying to sitting on side of be: 6 Sit to stand: 6 Chair/kfn-qw-oqxbf transfer: 6 Toilet transfer: 6 Walk 10 feet: 6 Walk 50 feet with two turns: 6 Walk 150 feet: 6 PT Plan Problem List Problem List: Activity Tolerance, Functional Strength, Safety, Balance, Gait, Transfer, Bed Mobility, ROM Treatment/Plan Treatment Plan: Continue Plan of Care Treatment Plan: Bed Mobility, Education, Functional Activity Jessica, Functional Strength, Gait, Safety, Therapeutic Exercise, Transfers Treatment Duration: Aug 18, 2023 Frequency: 5 times per week Estimated Hrs Per Day: .25 hour per day Time Time In: 830 Time Out: 848 DATE: Aug 14, 2023 Total Billed Treatment Time: 18 Total Billed Treatment 1 visit EVMod 18 min WILL SANTIAGO PT Aug 14, 2023 09:17
--- NOTE | 2023-08-14 09:29 | Occupational Therapy Eval ---
OT Evaluation-General/PLF Medical Diagnosis Admission Date Aug 14, 2023 at 00:20 Medical Diagnosis: CHF/SOA Onset Date: Aug 14, 2023 Therapy Diagnosis Therapy Diagnosis: SOA Height/Weight Height (Feet): 5 Height (Inches): 7.00 Weight (Pounds): 200 Weight (Ounces): 0.0 Precautions Precautions/Isolations: Fall Prevention, Standard Precautions Weight Bear Status Weight Bearing Restriction: Full Weight Bearing Referral Physician: Robert Referral Reason: Evaluation/Treatment Medical History Pertinent Medical History: Atrial Fib, Prostate CA Reviewed History: Yes Social History Home: Single Level Current Living Status: Spouse ADL-Prior Level of Function SCALE: Activities may be completed with or without assistive devices. 5-Rborzooicn-qyqsorq completes the activity by him/herself with no assistance from a helper. 5-Set-up or Clean-up Assistance-helper sets up or cleans up; patient completes activity. [place]rett assists only prior to or following the activity. 4-Supervision or Touching Assistance-helper provides verbal cues and/or to uching/steadying and/or contact guard assistance as patient completes activity. Assistance may be provided throughout the activity or intermittently. 3-Partial/Moderate Assistance-helper does LESS THAN HALF the effort. Everett lifts, holds or supports trunk or limbs, but provides less than half the effort. 2-Substantial/Maximal Assistance-helper does MORE THAN HALF the effort. Everett lifts or holds trunk or limbs and provides more than half the effort. 3-Yntobxhje-pscpev does ALL the effort. Patient does none of the effort to complete the activity. Or, the assistance of 2 or more helpers is required for the patient to complete the activity. If activity was not attempted, code reason: 7-Patient Refused. 9-Not Applicable-not attempted and the patient did not perform the activity before the current illness, exacerbation or injury. 10-Not Attempted due to Environmental Limitations-(lack of equipment, weather restraints, etc.). 88-Not Attempted due to Medical Conditions or Safety Concerns. Self Care: Independent Functional Cognition: Independent DME/Equipment: Tub/Shower Drive Self: No OT Current Status Subjective Agreeable to OT Pain Numeric Pain Scale: 0-No Pain Mental Status/Objective Patient Orientation: Person, Place, Time, Situation Attachments: Oxygen (5 liters, sustained 87-97 % RA), Telemetry Current Glasses/Contacts: Yes Hand Dominance: Right Upper Extremity ROM RUE ROM WFLS Upper Extremity Coordination INTACT Upper Extremity Strength -4/5 grossly ADL-Treatment Eating (QC): 6 Oral Hygiene (QC): 5 Shower/Bathe Self (QC): 7 Upper Body Dressing (QC): 5 Lower Body Dressing (QC): 5 On/Off Footwear (QC): 5 (w./ VCs) Toileting Hygiene (QC): 5 Education OT Patient Education: Modified ADL techniques, Progress toward Goal/Update tx plan, Purpose of tx/functional activities, Reviewed precautions, Rehab process, Safety issues, Transfer techniques Teaching Recipient: Patient Response to Teaching: Return Demonstration OT Longterm Goals Assayer Helper Goals 1=Demonstrate adherence to instructed precautions during ADL tasks. 2=Patient will verbalize/demonstrate understanding of assistive devices/modifications for ADL. 3=Patient will improve strength/tolerance for activity to enable patient to perform ADL's. OT Education/Plan Problem List/Assessment Assessment: No Skilled OT Needs ID'd Discharge Recommendations Plan/Recommendations: Discontinue OT Treatment Plan/Plan of Care Patient would benefit from OT for education, treatment and training to promote independence in ADL's, mobility, safety and/or upper extremity function for ADL's. Plan of Care: OTHER (EVAL ONLY) Treatment Duration: Aug 14, 2023 Frequency: 1 time per week Estimated Hrs Per Day: .25 hour per day Agreement: Yes Rehab Potential: Good Time Start Time: 08:30 Stop Time: 08:49 DATE: Aug 14, 2023 Total Time Billed (hr/min): 19 Billed Treatment Time EVM 19 min BERKLEY LEONE OT Aug 14, 2023 09:29
[2023-08-14] MEDS ORDERED: ASPIRIN 81 MG CHEWABLE TABLET PO NR (10:00)
--- NOTE | 2023-08-14 10:12 | Diagnostic Imaging Report ---
INDICATION: Followup pneumonia. COMPARISON: 08/02/2023 FINDINGS: Single frontal radiographic view of the chest was obtained and again demonstrates bilateral interstitial prominence greatest within the mid and lower lung gomes. This has slightly progressed on the right when compared to prior exam. There is no large effusion or pneumothorax. Cardiac silhouette and pulmonary vasculature with normal limits. Osseous structures show no gross acute abnormalities. IMPRESSION: 1. Interval progression of interstitial opacities within the right lower lung concerning for pneumonia. Continued followup is advised. Dictated by: Dictated on workstation # [id number]
--- NOTE | 2023-08-14 10:30 | Tele-ICU Progress Note ---
Subjective Date Seen by a Provider: Aug 14, 2023 Time Seen by a Provider: 10:29 Subjective/Events-last exam (Tele-ICU Physician , consultation as per request of PCP Service provided via interactive audio and video telecommunications E-CARE system to a patient admitted to ICU bed in [facility]. Available chart/ vitals / labs / Images reviewed H&P is from ER notes Patient's information available about PMH, Shx, Fhx allergy reviewed inEMR. ROS as per chart and RN report Now in ICU, hemodynamically stable Video assessment done using teleICU camera, rest of exam as per RN Discussed with RN. Hospital course: A/P Acute on chronic resp failure ,(hypoxic ) with CHF ( NO PE on cta 08/13 - on 6 l O2 - cont diuresis - given steroids IV - ? for presumed pulm fibrosis flare up - re-eval after cards assessment , most likely will notneed long/large dosing CHF - h.o EF 50% 2020 - cards consulted -ECHO pending - Lasix given S/p right total knee replacement 08/09 - pain controlled - barry sq proph Afib - rate controlled - as per cards AC Pulmonary fibrosis and follows with Dr. Moreno of pulmonary services at [facility] - as per report was d/c on o2 few days ago from hospital , but not on any specific [place] Pulm HTN , mild , due to abopve -2020 echo RVSP 45 mmHg Elevated K 5.1 with nl Cr - monitor , lasix given with good UO Lines : prf , (Central Line Necessity Reviewed) Bearden: OG: Nutrition: po Analgesia: Anxiety/ delirium VTE Prophylaxis: barry sq Stress Ulcer Prophylaxis: na Plans in collaboration with bedside consultants and IM MDs. Discussed with RN to reach out if any questions or concerns A total of 25 minutes of critical care time was devoted to this patient today, required to treat and/or prevent further deterioration of critical care condition ( as above ) . I am remotely monitoring this patient from another state. I am unable to do the bedside exam, and history/physical and pertinent information is taken from other notes in the computer and bedside staff. . Sepsis Event Evaluation Height, Weight, BMI Height: 5'7.00" Weight: 200lbs. 0.0oz. 90.345524gk; 31.93 BMI Method: Focused Exam Lactate Level 08/13/23 18:00: Lactic Acid Level 0.87 Exam Exam Patient acknowledged, consented, and participated in this virtual visit which was conducted using real time audio/video Vital Signs Date Time Temp Pulse Resp B/P (MAP) Pulse Ox O2 Delivery O2 Flow Rate FiO2 08/14/23 09:00 90 18 149/79 (102) 90 OxyMask 5.00 08/14/23 08:00 74 14 155/75 (101) 99 OxyMask 5.00 08/14/23 07:50 OxyMask 5.00 08/14/23 07:47 95 OxyMask 6.00 08/14/23 07:46 Nasal Cannula 2.00 08/14/23 07:42 36.1 08/14/23 07:28 68 08/14/23 07:00 70 18 144/73 (96) 99 OxyMask 6.00 08/14/23 06:00 80 28 139/74 (95) 99 OxyMask 6.00 08/14/23 05:50 37.1 OxyMask 6.00 08/14/23 05:15 OxyMask 8.00 08/14/23 05:12 101 30 162/80 (88) 98 Nasal Cannula 2.00 08/14/23 05:00 84 17 149/112 (135) 94 Nasal Cannula 2.00 08/14/23 04:10 Nasal Cannula 2.00 08/14/23 04:00 76 22 133/67 (98) 93 Nasal Cannula 2.00 08/14/23 03:00 84 26 120/79 (93) 93 Nasal Cannula 2.00 08/14/23 02:00 89 23 140/70 (90) 94 Nasal Cannula 2.00 08/14/23 01:30 89 25 145/78 (94) 94 Nasal Cannula 2.00 08/14/23 01:15 84 24 137/67 (92) 95 Nasal Cannula 2.00 08/14/23 01:00 89 35 150/80 (102) 93 Nasal Cannula 2.00 08/14/23 00:52 37.2 89 94 08/14/23 00:50 95 Nasal Cannula 2.00 08/14/23 00:50 37.2 Nasal Cannula 2.00 08/14/23 00:45 84 11 155/76 (102) 96 Nasal Cannula 2.00 08/14/23 00:30 96 15 153/95 (114) 95 Nasal Cannula 2.00 08/14/23 00:28 96 08/14/23 00:27 100 161/89 (113) 89 Nasal Cannula 2.00 08/13/23 23:30 115 23 124/58 92 Room Air 2.00 08/13/23 17:50 98 Nasal Cannula 2.00 08/13/23 17:50 Nasal Cannula 2.00 08/13/23 17:50 36.8 85 20 187/76 (113) Nasal Cannula 2.00 I & O 08/14/23 07:00 Intake Total 100 ml Output Total 500 ml Balance -400 ml Height & Weight Height: 5'7.00" Weight: 200lbs. 0.0oz. 90.355604oa; 31.93 BMI Method: General Appearance: Other Gastrointestinal: normal bowel sounds, non tender, soft Results Lab Laboratory Tests 08/13/23 18:00 08/14/23 05:56 Assessment/Plan Assessment/Plan 1 ANDREIA BRITTON MD Aug 14, 2023 10:29
--- NOTE | 2023-08-14 11:01 | History & Physical ---
SEBASTIAN REYNOLDS 08/14/23 1101: HPI History of Present Illness: Patient presented to ED on 08/13 due to worsening shortness of breath. He had a knee replacement done on 08/09 and was discharged from the hospital on 08/10 with 2L O2 to use during ambulation. Patient has a history of idiopathic pulmonary fibrosis but this was a change from his baseline, as he has never required home O2 before. He said that on 08/13 he started to become very short of breath and could not even walk to the bathroom. His O2 saturation was 91% while sitting on 2L, 82% walking on 2L, and it would drop in the 60's if he was not using his oxygen. Endorses shortness of breath, chronic cough that has become wet in the last couple of days, dysuria, night sweats, back pain. and one episode of hemoptysis. Denies chest pain, abdominal pain, constipation, diarrhea, or constipation. Source: patient Exam Limitations: no limitations Date seen by provider: Aug 14, 2023 Time Seen by Provider: 10:00 Attending Physician Bryan Phelps MD PCP Admitting Physician: Jeannette Jones DO Attending Physician: Lee Monet MD Consult Date of Admission Aug 14, 2023 at 00:20 Home Medications Home Medications Reviewed patient Home Medication Reconciliation performed by pharmacy medication reconciliations molding process technician and/or nursing. Patients Allergies have been reviewed. Allergies Coded Allergies: hydrocodone (Verified Allergy, Unknown, Itching, 08/02/23) oxycodone (Verified Allergy, Unknown, Itching, 08/02/23) PPS-[id number]-Ypnxrg Hx Patient Social History Marrital Status: Smoking Status: Never a Smoker 2nd Hand Smoke Exposure: No Recent Hopitalizations: No Alcohol Use?: No Substance type: Nicotine Have you traveled recently?: No Immunizations Up To Date Tetanus Booster (TDap): Unknown Influenza Vaccine Up-to-Date: No; Not Current Past Medical History Idiopathic pulmonary fibrosis Prostate cancer (2012) Recurrent kidney stones Afib with ablation Gout BPH GERD Osteoarthritis Anxiety/depression Family Medical History Significant Family History: No Pertinent Family Hx Review of Systems ([facility]) Constitutional: see HPI EENTM: see HPI Respiratory: see HPI Cardiovascular: see HPI Gastrointestinal: see HPI Genitourinary: see HPI Musculoskeletal: see HPI Skin: hx of skin cancer Psychiatric/Neurological: No Symptoms Reported Reviewed Test Results Reviewed Test Results Lab Laboratory Tests 08/13/23 18:00: White Blood Count 8.9, Red Blood Count 4.08L, Hemoglobin 12.1L, Hematocrit 37L, Mean Corpuscular Volume 91, Mean Corpuscular Hemoglobin 30, Mean Corpuscular Hemoglobin Concent 32, Red Cell Distribution Width 14.8H, Platelet Count 244, Mean Platelet Volume 8.4L, Immature Granulocyte % (Auto) 1, Neutrophils (%) (Auto) 73, Lymphocytes (%) (Auto) 11L, Monocytes (%) (Auto) 9, Eosinophils (%) (Auto) 7, Basophils (%) (Auto) 0, Neutrophils # (Auto) 6.5, Lymphocytes # (Auto) 0.9L, Monocytes # (Auto) 0.8, Eosinophils # (Auto) 0.6H, Basophils # (Auto) 0.0, Immature Granulocyte # (Auto) 0.0, Prothrombin Time 13.1, INR Comment 1.0, Activated Partial Thromboplast Time 36H, D-Dimer 1.84H, Sodium Level 138, Potassium Level 4.4, Chloride Level 101, Carbon Dioxide Level 28, Anion Gap 9, Blood Urea Nitrogen 14, Creatinine 1.25, Estimat Glomerular Filtration Rate 61, BUN/Creatinine Ratio 11, Glucose Level 97, Lactic Acid Level 0.87, Calcium Level 9.1, Corrected Calcium 9.6, Total Bilirubin 0.5, Aspartate Amino Transf (AST/SGOT) 17, Alanine Aminotransferase (ALT/SGPT) 10, Alkaline Phosphatase 54, Troponin I < 0.30, Pro-B-Type Natriuretic Peptide 2014.0H, Total Protein 7.0, Albumin 3.4 08/13/23 18:03: SARS-CoV-2 RNA (RT-PCR) Not Detected 08/13/23 18:20: Urine Color YELLOW, Urine Clarity CLEAR, Urine pH 7.5, Urine Specific [place] 1.010L, Urine Protein NEGATIVE, Urine Glucose (UA) NEGATIVE, Urine Ketones NEGATIVE, Urine Nitrite NEGATIVE, Urine Bilirubin NEGATIVE, Urine Urobilinogen 1.0, Urine Leukocyte Esterase NEGATIVE, Urine RBC (Auto) NEGATIVE, Urine RBC NONE, Urine WBC 5-10H, Urine Crystals NONE, Urine Bacteria TRACE, Urine Casts NONE, Urine Mucus NEGATIVE, Urine Culture Indicated YES 08/14/23 05:56: White Blood Count 8.7, Red Blood Count 3.79L, Hemoglobin 11.2L, Hematocrit 34L, Mean Corpuscular Volume 89, Mean Corpuscular Hemoglobin 30, Mean Corpuscular Hemoglobin Concent 33, Red Cell Distribution Width 14.6H, Platelet Count 232, Mean Platelet Volume 8.7L, Immature Granulocyte % (Auto) 3, Neutrophils (%) (Auto) 88H, Lymphocytes (%) (Auto) 5L, Monocytes (%) (Auto) 4, Eosinophils (%) (Auto) 1, Basophils (%) (Auto) 0, Neutrophils # (Auto) 7.6, Lymphocytes # (Auto) 0.4L, Monocytes # (Auto) 0.3, Eosinophils # (Auto) 0.1, Basophils # (Auto) 0.0, Immature Granulocyte # (Auto) 0.2H, Sodium Level 136, Potassium Level 5.1H, Chloride Level 104, Carbon Dioxide Level 25, Anion Gap 7, Blood Urea Nitrogen 15, Creatinine 1.12, Estimat Glomerular Filtration Rate 69, BUN/Creatinine Ratio 13, Glucose Level 135H, Calcium Level 8.7, Neutrophils % (Manual) 89, Lymphocytes % (Manual) 5, Monocytes % (Manual) 3, Eosinophils % (Manual) 2, Atypical Lymphocytes 1, Blood Morphology Comment NORMAL, Magnesium Level 1.7 Radiology NAME: BETO [facility] REC#: [id number] PT STATUS: REG ER : 1950 PHYSICIAN: BRITTANY POE MD ADMIT DATE: 08/13/23/ER FS Signed Date of Exam:08/13/23 CT ANGIO CHEST W (R/O PE) INDICATION: Shortness of air, 10 days postop. COMPARISON: None. FINDINGS: Pulmonary arterial branches are widely patent and well opacified. No pulmonary arterial embolus. Thoracic aorta patent, nonaneurysmal and is nonacute. There is progressive five lobe interstitial lung disease with subpleural honeycombing greatest in the lung bases. Bronchiectasis and patchy multifocal groundglass opacities. The groundglass densities are likely also progressive chronic lung disease but an acute infectious component could not be excluded given the progression from 2019. Heart size enlarged but unchanged. No pleural or pericardial effusion. No airspace consolidation or bronchograms. There is no pneumothorax. IMPRESSION: 1. Worsened chronic interstitial lung disease which likely also accounts for the new groundglass opacities; however, nonspecific infectious disease superimposed could not be excluded. 2. No PE or acute aortic pathology. No effusion or pneumothorax. Dictated by: Dictated on workstation # [id number] Dict: 08/13/231917 Trans: 08/13/231948 PJYg [id number] Interpreted by: TARIQ STEVENS Electronically signed by: TARIQ STEVENS 08/13/231948 NAME: BETO BURNS [facility] REC#: [id number] PT STATUS: REG ER : 1950 PHYSICIAN: BRITTANY POE MD ADMIT DATE: 08/13/23/ER FS Signed Date of Exam:08/13/23 CHEST 1 VIEW AP/PA ONLY INDICATION: Shortness of breath, postop. COMPARISON: 08/18/2021. FINDINGS: There are new patchy multifocal nodular interstitial type infiltrates consistent with nonspecific infectious disease or heterogeneous pulmonary edema. The heart size is within normal limits. There is no effusion or pneumothorax. IMPRESSION: New multifocal pulmonary opacities favored to reflect pneumonia. Stable heart size with no pleural pathology. Dictated by: Dictated on workstation # [id number] Dict: 08/13/231815 Trans: 08/13/231853 Yg [id number] Interpreted by: TARIQ STEVENS Electronically signed by: TARIQ STEVENS 08/13/231853 Physical Exam-([facility]) Physical Exam Vital Signs VS - Last 72 Hours, by Label 08/13/23 08/13/23 08/13/23 08/13/23 17:50 17:50 17:50 23:30 Temp 36.8 Pulse 85 115 Resp 20 23 B/P (MAP) 187/76 (113) 124/58 Pulse Ox 98 92 O2 Delivery Nasal Cannula Nasal Cannula Nasal Cannula Room Air O2 Flow Rate 2.00 2.00 2.00 2.00 08/14/23 08/14/23 08/14/23 08/14/23 00:27 00:28 00:30 00:45 Pulse 100 96 96 84 Resp 15 11 B/P (MAP) 161/89 (113) 153/95 (114) 155/76 (102) Pulse Ox 89 95 96 O2 Delivery Nasal Cannula Nasal Cannula Nasal Cannula O2 Flow Rate 2.00 2.00 2.00 08/14/23 08/14/23 08/14/23 08/14/23 00:50 00:50 00:52 01:00 Temp 37.2 37.2 Pulse 89 89 Resp 35 B/P (MAP) 150/80 (102) Pulse Ox 95 94 93 O2 Delivery Nasal Cannula Nasal Cannula Nasal Cannula O2 Flow Rate 2.00 2.00 2.00 08/14/23 08/14/23 08/14/23 08/14/23 01:15 01:30 02:00 03:00 Pulse 84 89 89 84 Resp 26 B/P (MAP) 137/67 (92) 145/78 (94) 140/70 (90) 120/79 (93) Pulse Ox 95 94 94 93 O2 Delivery Nasal Cannula Nasal Cannula Nasal Cannula Nasal Cannula O2 Flow Rate 2.00 2.00 2.00 2.00 08/14/23 08/14/23 08/14/23 08/14/23 04:00 04:10 05:00 05:12 Pulse 76 84 101 Resp 22 17 30 B/P (MAP) 133/67 (98) 149/112 (135) 162/80 (88) Pulse Ox 93 94 98 O2 Delivery Nasal Cannula Nasal Cannula Nasal Cannula Nasal Cannula O2 Flow Rate 2.00 2.00 2.00 2.00 08/14/23 08/14/23 08/14/23 08/14/23 05:15 05:50 06:00 07:00 Temp 37.1 Pulse 80 70 Resp 28 18 B/P (MAP) 139/74 (95) 144/73 (96) Pulse Ox 99 99 O2 Delivery OxyMask OxyMask OxyMask OxyMask O2 Flow Rate 8.00 6.00 6.00 6.00 08/14/23 08/14/23 08/14/23 08/14/23 07:28 07:42 07:46 07:47 Temp 36.1 Pulse 68 B/P (MAP) Pulse Ox 95 O2 Delivery Nasal Cannula OxyMask O2 Flow Rate 2.00 6.00 08/14/23 08/14/23 08/14/23 08/14/23 07:50 08:00 09:00 10:00 Pulse 74 90 87 Resp 14 18 22 B/P (MAP) 155/75 (101) 149/79 (102) 152/71 (98) Pulse Ox 99 90 98 O2 Delivery OxyMask OxyMask OxyMask OxyMask O2 Flow Rate 5.00 5.00 5.00 5.00 08/14/23 08/14/23 11:00 11:10 Pulse 67 Resp 28 B/P (MAP) 140/76 (97) Pulse Ox 99 O2 Delivery OxyMask OxyMask O2 Flow Rate 5.00 3.00 Capillary Refill : General Appearance: mild distress Respiratory: chest non-tender, respiratory distress, crackles (inspiratory bilateral lower lobe crackles) Cardiovascular: normal peripheral pulses, regular rate, rhythm, no edema, no murmur Gastrointestinal: normal bowel sounds, non tender, soft, no organomegaly, no pulsatile mass Extremities: normal range of motion, non-tender, normal inspection, no pedal edema, no calf tenderness, normal capillary refill Neurologic/Psychiatric: alert, normal mood/affect, oriented x 3 Skin: normal color, warm/dry Assessment/Plan Assessment/Plan Admission Status: Inpatient Order (span 2 midnights) Reason for Inpatient Admission: Shortness of breath (1) SOB (shortness of breath) Status: Acute Assessment & Plan: - Patient is currently on 5L O2 satting in the 's - BNP upon amdission was 2013 - Treating with cefepime and doxycycline for possible pneumonia - Pulmonary embolism ruled out with CTA - Echocardiogram in 2020 showed an EF of 50-55%, mild-moderate MR, and PA pressures of 40-45 - Pending echocardiogram results - Consider possible fluid overload due to knee replacement surgery last week - Continue IV Lasix 40mg - Cardiology consulted - Order incentive spirometer - Continue decadron and ipratropium/albuterol (2) Hypoxia Status: Acute Assessment & Plan: - Patient is currently on 5L O2 satting in the 90's - BNP upon amdission was 2013 - Treating with cefepime and doxycycline for possibly pneumonia - Echocardiogram in 2020 showed an EF of 50-55%, mild-moderate MR, and PA pressures of 40-45 - Pending echocardiogram results - Consider possible fluid overload due to knee replacement surgery last week - Continue IV Lasix 40mg - Cardiology consulted - Continue trying to decrease O2 requirements. Patients baseline is no O2 supplementation. - Continue decadron and ipratropium/albuterol (3) Urinary tract infection Status: Acute Assessment & Plan: - Patient had a UA performed showing 10-15 WBCs. He also endorses dysuria on ROS. - It is questionable whether he has a UTI - Currently treating possible UTI and pneumonia with IV cefepime and doxycycline Qualifiers: Qualified Codes: N39.0 - Urinary tract infection, site not specified (4) Pneumonia Status: Acute Assessment & Plan: - Upon admission patient had a WBC count of 8.7 with 88% neutrophils - CTA chest was performed indicating worsened chronic interstitial lung disease. Cannot rule out superimposed infection. - CXR indicated new opacities may be secondary to infection - Consider ordering sputum culture - Contiue IV cefepime and doxycycline Qualifiers: (5) Hyperkalemia Status: Acute Assessment & Plan: - Potassium of 5.1 on admission - Will most likely decrease secondary to Lasix use - Continue to monitor with AM CMP (6) Idiopathic pulmonary fibrosis Status: Chronic Assessment & Plan: - Patient follows with Dr. Kim at for this - He is currently in a trial which he started in January. He is taking nebulized treprostinil for this trial. Holding this medication - Hold Ofev for his pulmonary fibrosis - Contact Dr. Kim at with any questions - CTA chest was performed indicating worsened chronic interstitial lung disease. Cannot rule out superimposed infection. (7) Status post total knee replacement, right Status: Acute Assessment & Plan: - Schedule daily PT for knee rehab - Continue pain medication PRN for knee pain (8) Gout Status: Chronic Assessment & Plan: - Continue INFORMATION SYSTEMS ARCHITECT allopurinol (9) Depression Status: Chronic Assessment & Plan: - Continue INFORMATION SYSTEMS ARCHITECT citalopram Qualifiers: Qualified Codes: F32.A - Depression, unspecified (10) GERD (gastroesophageal reflux disease) Status: Chronic Assessment & Plan: - Continue INFORMATION SYSTEMS ARCHITECT omeprazole LEE MONET MD 08/14/23 1444: Home Medications Allergies Coded Allergies: hydrocodone (Verified Allergy, Unknown, Itching, 08/02/23) oxycodone (Verified Allergy, Unknown, Itching, 08/02/23) Review of Systems ([facility]) Constitutional: dizziness, malaise EENTM: no symptoms reported Respiratory: dyspnea on exertion, short of breath Cardiovascular: No chest pain, No palpitations Gastrointestinal: no symptoms reported; No abdominal pain, No constipation, No diarrhea, No nausea, No vomiting Genitourinary: no symptoms reported Musculoskeletal: joint pain, muscle stiffness Skin: hx of skin cancer Psychiatric/Neurological: No Symptoms Reported Physical Exam-([facility]) Physical Exam General Appearance: WD/WN, no apparent distress HEENT: PERRL/EOMI Neck: non-tender, full range of motion, supple Respiratory: chest non-tender, no accessory muscle use, crackles (inspiratory bilateral lower lobe crackles), wheezing Cardiovascular: normal peripheral pulses, regular rate, rhythm, no murmur Gastrointestinal: normal bowel sounds, non tender, soft Extremities: no pedal edema, no calf tenderness, normal capillary refill Neurologic/Psychiatric: hand alterations tailor II-XII nml as tested, alert, normal mood/affect, oriented x 3 Skin: normal color, warm/dry Supervisory-Addendum Brief Supervisory Addendum Verification and Attestation of Medical Student E/M Service A medical student performed and documented this service in my presence. I reviewed and verified all information documented by the medical student and made modifications to such information, when appropriate. I personally performed the physical exam and medical decision making. Lee Monet, Aug 14, 2023,14:44 Agree with above in Addition A/P Acute on Chronic Respiratory failure with hypoxia Idopathic Pulmonary Fibrosis Progressive shortness of breath - CTA neg for PE, PNA vs fluid overload, MAT protocol, titrate oxygen as tolerated Atrial fibrillation ? new onset CHF - Cardiology consulted, appreciate recommendations, Echo pending, continue OAC Recent Right Total Knee - Continue PT - Ok to transfer to 4th floor SEBASTIAN REYNOLDS Aug 14, 2023 11:01 LEE MONET MD Aug 14, 2023 14:44
[2023-08-14] MEDS ORDERED: ASPI-1238 PO (11:30)
[2023-08-14] MEDS ORDERED: MELO15TA39 PO (11:30)
[2023-08-14] MEDS ORDERED: DIPH1TAB25 PO (11:30)
[2023-08-14] MEDS ORDERED: OMEP20CA18 PO (11:30)
[2023-08-14] MEDS ORDERED: [UNRECOGNIZED DRUG - OTHER] INH (11:59)
[2023-08-14] MEDS ORDERED: ACET-2267 PO (11:59)
--- NOTE | 2023-08-14 14:04 | Consultation-Cardiology ---
HPI-Cardiology Cardiology Consultation: Date of Consultation 08/14/23 Time Seen by a Provider: 09:30 Date of Admission Attending Physician Bryan Phelps MD Admitting Physician Admitting Physician: Jeannette Jones DO Attending Physician: Chasidy Jackson MD Consulting Physician DENIS WHARTON MD, MA, FACP, FACC, [facility], CCDS HPI: Chief Complaint: Progressive dyspnea Mr. Chadwick is a 73 yr old male admitted to ICU10 from the ED with progressive dyspnea. He reports he has pulmonary fibrosis and follows with Dr. Moreno of pulmonary services at [facility]. He states he had right total knee replacement 3 days ago and became increasingly SOB following surgery requiring supplemental oxygen (had not required oxygen prior). He states he was discharged home with oxygen and SOB continued to progressively get worse from his baseline prompting him to come in. He reports his SOB is somewhat better this morning. He reports productive cough of thick yellow sputum. No c/o CP, palpitations, syncope, near syncope or LE swelling. He reports chills and feeling sweaty overnight. Review of Systems-Cardiology Review of Systems Constitutional: chills; No lightheadedness, No malaise Eyes: No vision change Ears/Nose/Throat: No epistaxis, No recent hearing loss Respiratory: As described under HPI Cardiovascular: As described under HPI Gastrointestinal: No constipation, No diarrhea; nausea; No vomiting Genitourinary: No dysuria, No hematuria Musculoskeletal: other (s/p right knee surgery ) Skin: No rash on exposed areas, No ulcerations on exposed areas Psychiatric/Neurological: No anxiety, No depression, No seizure, No focal weakness, No syncope Hematologic: No bleeding abnormalities All Other Systems Reviewed Negative Unless Noted: Yes JFN-Vaoekz-Syxkio Hx Patient Social History Marrital Status: Smoking Status: Never a Smoker 2nd Hand Smoke Exposure: No Have you traveled recently?: No Alcohol Use?: No Substance type: Nicotine Pt feels they are or have been: No Immunizations Up To Date Tetanus Booster (TDap): Unknown Date of Pneumonia Vaccine: April 13, 2018 Date of Influenza Vaccine: Sep 16, 2020 Past Medical History PMH As described under Assessment. Family Medical History Family Medical History: No reported family h/o CAD. Reported h/o mother having HTN Allergies and Home Medications Allergies Coded Allergies: hydrocodone (Verified Allergy, Unknown, Itching, 08/02/23) oxycodone (Verified Allergy, Unknown, Itching, 08/02/23) Patient Home Medication List Home Medication List Reviewed: Yes Acetaminophen (Tylenol Extra Strength) 500 Mg Tablet, 1,000 MG PO Q8H PRN for PAIN-MILD (1-4), (Reported) Entered as Reported by: ELIDA PATRICIA on 08/14/23 1159 Last Action: Reviewed Allopurinol (Allopurinol) 300 Mg Tablet, 150 MG PO HS, (Reported) Entered as Reported by: FREDERICK AKHTAR on 04/25/18 155 Last Action: Reviewed Aspirin (Aspirin EC) 81 Mg Tablet.dr, 81 MG PO HS, (Reported) Entered as Reported by: ELIDA PATRICIA on 08/14/23 113 Last Action: Reviewed Cetirizine HCl (Cetirizine HCl) 10 Mg Tablet, 10 MG PO DAILY, (Reported) Entered as Reported by: FREDERICK AKHTAR on 04/25/18 412 Last Action: Reviewed Citalopram Hydrobromide (Citalopram HBr) 20 Mg Tablet, 20 MG PO DAILY, (Reported) Entered as Reported by: BLANCA STANTON on 08/14/23111 Last Action: Reviewed Diphenoxylate HCl/Atropine (Diphenoxylate-Atrop 2.5-0.025) 2.5 Mg-0.025 Mg T ablet, 1 EACH PO Q6H PRN for DIARRHEA, (Reported) Entered as Reported by: ELIDA PATRICIA on 08/14/231129 Last Action: Reviewed Fluticasone Propionate (Flonase Allergy Relief) 50 Mcg/Actuation Freedom.susp, 1-2 SPRAYS NSEACH HS, (Reported) Entered as Reported by: VANESSA SAENZ on 08/18/21 0818 Last Action: Reviewed Hydromorphone HCl (Hydromorphone HCl) 4 Mg Tablet, 4 MG PO Q6H PRN for PAIN- SEVERE (8-10), (Reported) Entered as Reported by: BLANCA STANTON on 08/14/23111 Last Action: Reviewed Meloxicam (Meloxicam) 15 Mg Tablet, 15 MG PO HS, (Reported) Entered as Reported by: ELIDA PATRICIA on 08/14/231129 Last Action: Reviewed Nintedanib Esylate (Ofev) 100 Mg Capsule, 100 MG PO BID, (Reported) Entered as Reported by: VANESSA SAENZ on 08/18/21817 Last Action: Reviewed Omeprazole (Omeprazole) 20 Mg Capsule.dr, 20 MG PO HS, (Reported) Entered as Reported by: ELIDA PATRICIA on 08/14/23 113 Last Action: Reviewed Tamsulosin HCl (Flomax) 0.4 Mg Cap, 0.4 MG PO HS, (Reported) Entered as Reported by: INGA RENEE on 03/11/19 1424 Last Action: Reviewed Tramadol HCl (Tramadol HCl) 50 Mg Tablet, 100 MG PO Q6H PRN for PAIN-MODERATE (5-7), (Reported) Entered as Reported by: BLANCA STANTON on 08/14/23 0112 Last Action: Reviewed Zolpidem Tartrate (Zolpidem Tartrate) 5 Mg Tablet, 5 MG PO HS, (Reported) Entered as Reported by: FREDERICK AKHTAR on 04/25/181549 Last Action: Reviewed [Treprostinil Trial] , 12 EA INH QID, (Reported) Entered as Reported by: ELIDA PATRICIA on 08/14/23 115 Last Action: Reviewed Discontinued Medications Acetaminophen (Tylenol) 325 Mg Tablet, 650 MG PO Q6H PRN for PAIN-MILD (1-4), (Reported) Discontinued Reason: No Longer Taking Entered as Reported by: VANESSA SAENZ on 08/18/21817 Last Action: Discontinued Albuterol Sulfate (Ventolin Hfa) 1 Puff Puff, 2 PUFF IH Q4H PRN for WHEEZING, (Reported) Discontinued Reason: No Longer Taking Entered as Reported by: FREDERICK AKHTAR on 04/25/181553 Last Action: Discontinued Bicalutamide (Bicalutamide) 50 Mg Tablet, 50 MG PO HS, (Reported) Discontinued Reason: No Longer Taking Entered as Reported by: FREDERICK AKHTAR on 04/25/181549 Last Action: Discontinued Calcium Carbonate (Calcium) 600 Mg Tablet, 600 MG PO DAILY, (Reported) Discontinued Reason: No Longer Taking Entered as Reported by: VANESSA SAENZ on 08/18/21817 Last Action: Discontinued Citalopram Hydrobromide (Citalopram HBr) 40 Mg Tablet, 40 MG PO DAILY, (Reported) Discontinued Reason: New Order Entered as Reported by: VANESSA SAENZ on 08/18/21817 Last Action: Discontinued Diphenoxylate HCl/Atropine (Diphenoxylate-Atrop 2.5-0.025) 1 Each Tablet, 2 EACH PO QID PRN for DIARRHEA, (Reported) Discontinued Reason: No Longer Taking Entered as Reported by: VANESSA SAENZ on 08/18/21821 Meloxicam (Mobic) 15 Mg Tablet, 15 MG PO HS, (Reported) Discontinued Reason: Duplicate Order Entered as Reported by: VANESSA SAENZ on 08/18/21817 Last Action: Discontinued Omeprazole (Omeprazole) 20 Mg Tablet.dr, 20 MG PO DAILY, (Reported) Discontinued Reason: Duplicate Order Entered as Reported by: VANESSA SAENZ on 08/18/21817 Last Action: Discontinued Saw/Vit E/Sod Jaci/Lyc/Beta/Pyg (Prostate Health Caplet) 1 Each Tablet, 1 EACH PO BID, (Reported) Discontinued Reason: No Longer Taking Entered as Reported by: VANESSA SAENZ on 08/18/21817 Last Action: Discontinued Tramadol HCl (Tramadol HCl) 50 Mg Tablet, 50 MG PO Q6H PRN for PAIN-MODERATE (5- 7), (Reported) Discontinued Reason: New Order Entered as Reported by: VANESSA SAENZ on 08/18/21817 Last Action: Discontinued Treprostinil Sodium (Treprostinil) 1 Mg/Ml Vial, 1 MG IJ, (Reported) Discontinued Reason: No Longer Taking Entered as Reported by: Heidi Coles on 08/02/23 1059 Last Action: Discontinued Physical Exam-Cardiology Physical Exam Vital Signs/I&O 08/14/23 08/14/23 08/14/23 08/14/23 03:00 04:00 04:10 05:00 Pulse 84 76 84 Resp 26 22 17 B/P (MAP) 120/79 (93) 133/67 (98) 149/112 (135) Pulse Ox 93 93 94 O2 Delivery Nasal Cannula Nasal Cannula Nasal Cannula Nasal Cannula O2 Flow Rate 2.00 2.00 2.00 2.00 908/14/23 08/14/23 08/14/23 05:12 05:15 05:50 06:00 Temp 37.1 Pulse 101 80 Resp 30 28 B/P (MAP) 162/80 (88) 139/74 (95) Pulse Ox 98 99 O2 Delivery Nasal Cannula OxyMask OxyMask OxyMask O2 Flow Rate 2.00 8.00 6.00 6.00 08/14/23 08/14/23 08/14/23 08/14/23 07:00 07:28 07:42 07:46 Temp 36.1 Pulse 70 68 Resp 18 B/P (MAP) 144/73 (96) Pulse Ox 99 O2 Delivery OxyMask Nasal Cannula O2 Flow Rate 6.00 2.00 08/14/23 08/14/23 08/14/23 08/14/23 07:47 07:50 08:00 09:00 Pulse 74 90 Resp 14 18 B/P (MAP) 155/75 (101) 149/79 (102) Pulse Ox 95 99 90 O2 Delivery OxyMask OxyMask OxyMask OxyMask O2 Flow Rate 6.00 5.00 5.00 5.00 08/14/23 08/14/23 08/14/23 08/14/23 10:00 11:00 11:10 11:48 Temp 36.5 Pulse 87 67 Resp 22 28 B/P (MAP) 152/71 (98) 140/76 (97) Pulse Ox 98 99 O2 Delivery OxyMask OxyMask OxyMask Nasal Cannula O2 Flow Rate 5.00 5.00 3.00 3.00 08/14/23 08/14/23 08/14/23 12:00 12:16 12:25 Pulse 87 89 Resp 13 B/P (MAP) 129/71 (90) Pulse Ox 97 O2 Delivery Nasal Cannula Nasal Cannula O2 Flow Rate 3.00 3.00 08/14/23 00:00 Intake Total 50 ml Balance 50 ml Capillary Refill : Constitutional: AAO x 3, well-developed, well-nourished HEENT: PERRL, hearing is well preserved, oral hygience is good Neck: No carotid bruit; carotid pulses are 2 + bilaterally Respiratory: other (dminished throughout with coarse breath sounds ) Cardiovascular: regular rate-rhythm; No JVD; S1 and S2, systolic murmur Gastrointestinal: No tender; soft; No guarding; audible bowel sounds Extremities: other (dressing in place to right knee; D&I), no lower extremity edema bilateral Neurologic/Psychiatric: grossly intact (moves all extemities) Skin: No rash on exposed areas, No ulcerations on exposed areas; other (see above) Data Review Labs Laboratory Tests 08/13/23 18:00: White Blood Count 8.9, Red Blood Count 4.08L, Hemoglobin 12.1L, Hematocrit 37L, Mean Corpuscular Volume 91, Mean Corpuscular Hemoglobin 30, Mean Corpuscular Hemoglobin Concent 32, Red Cell Distribution Width 14.8H, Platelet Count 244, Mean Platelet Volume 8.4L, Immature Granulocyte % (Auto) 1, Neutrophils (%) (Auto) 73, Lymphocytes (%) (Auto) 11L, Monocytes (%) (Auto) 9, Eosinophils (%) (Auto) 7, Basophils (%) (Auto) 0, Neutrophils # (Auto) 6.5, Lymphocytes # (Auto) 0.9L, Monocytes # (Auto) 0.8, Eosinophils # (Auto) 0.6H, Basophils # (Auto) 0.0, Immature Granulocyte # (Auto) 0.0, Prothrombin Time 13.1, INR Comment 1.0, Activated Partial Thromboplast Time 36H, D-Dimer 1.84H, Sodium Level 138, Potassium Level 4.4, Chloride Level 101, Carbon Dioxide Level 28, Anion Gap 9, Blood Urea Nitrogen 14, Creatinine 1.25, Estimat Glomerular Filtration Rate 61, BUN/Creatinine Ratio 11, Glucose Level 97, Lactic Acid Level 0.87, Calcium Level 9.1, Corrected Calcium 9.6, Total Bilirubin 0.5, Aspartate Amino Transf (AST/SGOT) 17, Alanine Aminotransferase (ALT/SGPT) 10, Alkaline Phosphatase 54, Troponin I < 0.30, Pro-B-Type Natriuretic Peptide 2014.0H, Total Protein 7.0, Albumin 3.4 08/13/23 18:03: SARS-CoV-2 RNA (RT-PCR) Not Detected 08/13/23 18:20: Urine Color YELLOW, Urine Clarity CLEAR, Urine pH 7.5, Urine Specific Smoot 1.010L, Urine Protein NEGATIVE, Urine Glucose (UA) NEGATIVE, Urine Ketones NEGATIVE, Urine Nitrite NEGATIVE, Urine Bilirubin NEGATIVE, Urine Urobilinogen 1.0, Urine Leukocyte Esterase NEGATIVE, Urine RBC (Auto) NEGATIVE, Urine RBC NONE, Urine WBC 5-10H, Urine Crystals NONE, Urine Bacteria TRACE, Urine Casts NONE, Urine Mucus NEGATIVE, Urine Culture Indicated YES 08/14/23 05:56: White Blood Count 8.7, Red Blood Count 3.79L, Hemoglobin 11.2L, Hematocrit 34L, Mean Corpuscular Volume 89, Mean Corpuscular Hemoglobin 30, Mean Corpuscular Hemoglobin Concent 33, Red Cell Distribution Width 14.6H, Platelet Count 232, Mean Platelet Volume 8.7L, Immature Granulocyte % (Auto) 3, Neutrophils (%) (Auto) 88H, Lymphocytes (%) (Auto) 5L, Monocytes (%) (Auto) 4, Eosinophils (%) (Auto) 1, Basophils (%) (Auto) 0, Neutrophils # (Auto) 7.6, Lymphocytes # (Auto) 0.4L, Monocytes # (Auto) 0.3, Eosinophils # (Auto) 0.1, Basophils # (Auto) 0.0, Immature Granulocyte # (Auto) 0.2H, Sodium Level 136, Potassium Level 5.1H, Chloride Level 104, Carbon Dioxide Level 25, Anion Gap 7, Blood Urea Nitrogen 15, Creatinine 1.12, Estimat Glomerular Filtration Rate 69, BUN/Creatinine Ratio 13, Glucose Level 135H, Calcium Level 8.7, Neutrophils % (Manual) 89, Lymphocytes % (Manual) 5, Monocytes % (Manual) 3, Eosinophils % (Manual) 2, Atypical Lymphocytes 1, Blood Morphology Comment NORMAL, Magnesium Level 1.7 A/P-Cardiology Assessment/Admission Diagnosis Progressive BALTAZAR - multifactorial d/t possible pneumonia; pulmonary fibrosis and possible vol overload following recent right total knee replacement H/O Coronary artery disease, - cardiac catheterization done on August 18, [address] Bobby: showing mild coronary artery disease nonobstructive disease. Patient had tortuous right brachial artery required cancellation of the procedure from the radial approach and had the procedure done through the femoral approach with excellent results. Paroxysmal atrial tachycardia/possible flutter - H/O narrow complex tachycardia - Patient had a short run of wide-complex ventricular tachycardia on May 16, 2021 for 15 beats, he was asymptomatic. - Had a loop monitor reported as atrial fibrillation. Questionable atrial flutter, underwent ablation with Dr. Thad Rodriguez on August 25, 2021 for atrial tachycardia possibly flutter. No fibrillation ablation was done. - He is followed and monitored by Dr. Rodriguez, had an ablation done with Dr. Rodriguez, was seen by Dr. Stahl and Dr. Stahl has signed off. - Loop monitor interrogation last done on March 10, 2022, it was implanted in July 2018. - No further arrhythmia was detected - loop explanted - [id number] score of 1, low risk of stroke, maintained on aspirin. - Mild degree of sinus node dysfunction per Dr. Bobby report, had a 3 seconds pause asymptomatic. Twelve-lead EKG done on May 04, 2023 with normal sinus rhythm, normal axis, no abnormality. Echocardiogram done May 2021 showing normal LV size, EF 50-55%. Mild to moderate MR, PA 40-45mmHg. Hyperlipidemia H/O Hypertension Pulmonary fibrosis and restrictive lung disease with chronic dyspnea - managed by Dr. Moreno of pulmonary services at [facility] History of dizziness and near syncope - no recent episodes were reported - Tilt table test done by Dr. Brito in June 2018 reported as positive with episode of hypotension and blood pressure was down to 43 mmHg improved with IV fluid. No further episodes of syncope. 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 Jones for this consult DENIS WHARTON MD FACP FAC CCDS Aug 14, 2023 14:03
[2023-08-14 16:28] VITALS: BP 118/56
[2023-08-14] MEDS: ALLOPURINOL 300 MG TABLET PO SCH (19:13)
[2023-08-14] MEDS: TAMSULOSIN 0.4 MG (FLOMAX) CAP PO SCH (19:14)
[2023-08-14 20:00] VITALS: BP 113/55
[2023-08-14] MEDS: ZOLPIDEM 5 MG (AMBIEN) TAB PO SCH (20:53)
[2023-08-14] MEDS: ACETAMINOPHEN 325 MG TABLET PO PRN (22:37)
[2023-08-14 23:00] VITALS: BP 144/69
[2023-08-15] MEDS: CEFEPIME 1,000 MG/NS 50 ML IVPB IV SCH ×8 (00:28→18:31)
[2023-08-15] MEDS: dexAMETHasone INJ 4 MG/ML SDV IV SCH (00:28)
[2023-08-15] MEDS: DOXYCYCLINE INJECTION 100 MG in NS (IVPB) 100 ML 100 ML IV SCH (01:02)
[2023-08-15 03:19] VITALS: BP 132/72
[2023-08-15] MEDS: ENOXAPARIN 40 MG/0.4 ML SYRINGE SC SCH (05:11)
[2023-08-15] MEDS: POTASSIUM CL 10MEQ/50ML IVPB 50 ML IV SCH (05:19)
[2023-08-15 05:34] LABS: BASOPHILS % (AUTO) 0 % (0-10); EOSINOPHILS % (AUTO) 0 % (0-10); HEMATOCRIT 31 % (40-54); HEMOGLOBIN 10.2 g/dL (13.3-17.7); LYMPHOCYTES # (AUTO) 0.5 10^3/uL (1.0-4.0); LYMPHOCYTES % (AUTO) 5 % (12-44); MEAN CORPUSCULAR HEMOGLOBIN 29 pg (25-34); MEAN CORPUSCULAR HGB CONC 33 g/dL (32-36); MEAN CORPUSCULAR VOLUME 88 fL (80-99); MONOCYTES # (AUTO) 0.6 10^3/uL (0.0-1.0); MONOCYTES % (AUTO) 6 % (0-12); NEUTROPHILS # (AUTO) 9.4 10^3/uL (1.8-7.8); NEUTROPHILS % (AUTO) 89 % (42-75); PLATELET COUNT 240 10^3/uL (130-400); WHITE BLOOD COUNT 10.6 10^3/uL (4.3-11.0)
[2023-08-15 05:48] LABS: ALBUMIN 3.1 GM/DL (3.2-4.5); POTASSIUM 4.9 MMOL/L (3.6-5.0)
[2023-08-15 05:50] LABS: CALCIUM 8.5 MG/DL (8.5-10.1)
[2023-08-15 05:51] LABS: TOTAL PROTEIN 6.1 GM/DL (6.4-8.2)
[2023-08-15 05:53] LABS: BILIRUBIN,TOTAL 0.6 MG/DL (0.1-1.0)
[2023-08-15 05:55] LABS: CREATININE SERUM 1.39 MG/DL (0.60-1.30)
[2023-08-15 05:57] LABS: MAGNESIUM 2.5 MG/DL (1.6-2.4)
[2023-08-15] MEDS: MAGNESIUM 1 GM/100 ML IVPB 100 ML IV SCH (06:12)
[2023-08-15] MEDS: POTASSIUM CHLORIDE 20 MEQ TABLET PO SCH (06:13)
[2023-08-15 07:03] VITALS: BP 120/69
[2023-08-15] MEDS: FUROSEMIDE INJECTION 40 MG/4 ML VIAL IV SCH (07:57)
[2023-08-15] MEDS: DOCUSATE SODIUM 100 MG CAPSULE PO SCH ×2 (07:58→20:21)
[2023-08-15] MEDS: CITALOPRAM 20 MG TABLET PO SCH (07:58)
[2023-08-15] MEDS: RT-Ipratropium/Albuterol NEB 3 ML VIAL INH SCH ×4 (07:59→22:50)
[2023-08-15] MEDS: ASPIRIN 81 MG CHEWABLE TABLET PO SCH (08:04)
--- NOTE | 2023-08-15 09:04 | Progress Note ---
SEBASTIAN REYNOLDS 08/15/23 0903: Subjective Subjective/Events-last exam Patient is resting comfortably in bed this morning. He said he is feeling better than yesterday but not back to his baseline. He continues to be sob when he does any kind of movement. Patient also states that he has long-standing history of sinus issues involving surgery. He has been on antibiotics this summer, prescribed by Dr. Duckworth for chronic sinus infection. He cannot recall the name of the medication. He states he believes there is still an infection because he says it smells bad. Denies fever/chills, N/V, chest pain, abdominal pain, dysuria, frequency, urgency, diarrhea, or constipation. Focused Exam Lactate Level 08/13/23 18:00: Lactic Acid Level 0.87 Objective Exam Last Set of Vital Signs Vital Signs Date Time Temp Pulse Resp B/P (MAP) Pulse Ox O2 Delivery O2 Flow Rate FiO2 08/15/23 08:05 94 Nasal Cannula 2.00 08/15/23 07:37 70 08/15/23 07:03 36.3 16 120/69 (86) Capillary Refill : I&O Intake and Output 08/15/23 00:00 Intake Total 1535 ml Output Total 1770 ml Balance -235 ml Intake Oral 835 ml IV Total 700 ml Output Urine Total 1770 ml # Voids 4 # Bowel Movements 1 Daily Weight Change No General: Alert, Oriented X3, Cooperative, No Acute Distress Lungs: Other (Inspiratory brackles in bilateral lower lobes of lung gomes) Heart: Regular Rate, Normal S1, Normal S2, No Murmurs Abdomen: Normal Bowel Sounds, Soft, No Tenderness, No Hepatosplenomegaly, No Masses Extremities: No Clubbing, No Cyanosis, No Edema, Normal Pulses, No Tenderness/Swelling Skin: No Rashes, No Breakdown, No Significant Lesion Neuro: Normal Speech Psych/Mental Status: Mental Status NL, Mood NL Results/Procedures Lab Laboratory Tests 08/15/23 05:13: White Blood Count 10.6, Red Blood Count 3.48L, Hemoglobin 10.2L, Hematocrit 31L, Mean Corpuscular Volume 88, Mean Corpuscular Hemoglobin 29, Mean Corpuscular Hemoglobin Concent 33, Red Cell Distribution Width 14.6H, Platelet Count 240, Mean Platelet Volume 9.0, Immature Granulocyte % (Auto) 1, Neutrophils (%) (Auto) 89H, Lymphocytes (%) (Auto) 5L, Monocytes (%) (Auto) 6, Eosinophils (%) (Auto) 0, Basophils (%) (Auto) 0, Neutrophils # (Auto) 9.4H, Lymphocytes # (Auto) 0.5L, Monocytes # (Auto) 0.6, Eosinophils # (Auto) 0.0, Basophils # (Auto) 0.0, Immature Granulocyte # (Auto) 0.1, Sodium Level 135, Potassium Level 4.9, Chloride Level 101, Carbon Dioxide Level 25, Anion Gap 9, Blood Urea Nitrogen 27H, Creatinine 1.39H, Estimat Glomerular Filtration Rate 54, BUN/Creatinine Ratio 19, Glucose Level 139H, Calcium Level 8.5, Corrected Calcium 9.2, Phosphorus Level 4.0, Magnesium Level 2.5H, Total Bilirubin 0.6, Aspartate Amino Transf (AST/SGOT) 18, Alanine Aminotransferase (ALT/SGPT) 12, Alkaline Phosphatase 38L, Total Protein 6.1L, Albumin 3.1L Microbiology 08/14/23 MRSA Screen - Final, Complete MRSA not isolated 08/13/23 Urine Culture - Preliminary, Resulted Culture In Progress 08/13/23 Blood Culture - Preliminary, Resulted Radiology NAME: BETO BURNS [facility] REC#: [id number] PT STATUS: REG ER : 1950 PHYSICIAN: BRITTANY POE MD ADMIT DATE: 08/13/23/ER FS Signed Date of Exam:08/13/23 CT ANGIO CHEST W (R/O PE) INDICATION: Shortness of air, 10 days postop. COMPARISON: None. FINDINGS: Pulmonary arterial branches are widely patent and well opacified. No pulmonary arterial embolus. Thoracic aorta patent, nonaneurysmal and is nonacute. There is progressive five lobe interstitial lung disease with subpleural honeycombing greatest in the lung bases. Bronchiectasis and patchy multifocal groundglass opacities. The groundglass densities are likely also progressive chronic lung disease but an acute infectious component could not be excluded given the progression from 2018. Heart size enlarged but unchanged. No pleural or pericardial effusion. No airspace consolidation or bronchograms. There is no pneumothorax. IMPRESSION: 1. Worsened chronic interstitial lung disease which likely also accounts for the new groundglass opacities; however, nonspecific infectious disease superimposed could not be excluded. 2. No PE or acute aortic pathology. No effusion or pneumothorax. Dictated by: Dictated on workstation # [id number] Dict: 08/13/231917 Trans: 08/13/231948 [id number] [id number] Interpreted by: TARIQ STEVENS Electronically signed by: TARIQ STEVENS 08/13/231948 NAME: BETO BURNS [facility] REC#: [id number] PT STATUS: REG ER : 1950 PHYSICIAN: BRITTANY POE MD ADMIT DATE: 08/13/23/ER FS Signed Date of Exam:08/13/23 CHEST 1 VIEW AP/PA ONLY INDICATION: Shortness of breath, postop. COMPARISON: 08/18/2021. FINDINGS: There are new patchy multifocal nodular interstitial type infiltrates consistent with nonspecific infectious disease or heterogeneous pulmonary edema. The heart size is within normal limits. There is no effusion or pneumothorax. IMPRESSION: New multifocal pulmonary opacities favored to reflect pneumonia. Stable heart size with no pleural pathology. Dictated by: Dictated on workstation # [id number] Dict: 08/13/231815 Trans: 08/13/231853 [id number] [id number] Interpreted by: TARIQ STEVENS Electronically signed by: TARIQ STEVENS 08/13/231853 Assessment/Plan Assessment/Plan (1) SOB (shortness of breath) Status: Acute Assessment & Plan: - BNP upon amdission was 2013 - Pulmonary embolism ruled out with CTA - Echo results: Moderate concentric hypertrophy of the LV. EF is 60-65%. PA systolic pressure 45-50. - Discontinue IV Lasix 40mg - Continue using incentive spirometer - Continue decadron and ipratropium/albuterol - Treating with cefepime and doxycycline for possible pneumonia (2) Hypoxia Status: Acute Assessment & Plan: - Echo results: Moderate concentric hypertrophy of the LV. EF is 60-65%. PA systolic pressure 45-50. - Continue trying to decrease O2 requirements. Patients baseline is no O2 supplementation. - Continue decadron and ipratropium/albuterol - Treating with cefepime and doxycycline for possibly pneumonia (3) Urinary tract infection Status: Acute Assessment & Plan: - Patient had a UA performed showing 10-15 WBCs. He also endorses dysuria on ROS. - It is questionable whether he has a UTI - Currently treating possible UTI and pneumonia with IV cefepime and doxycycline Qualifiers: Qualified Codes: N39.0 - Urinary tract infection, site not specified (4) Pneumonia Status: Acute Assessment & Plan: - Upon admission patient had a WBC count of 8.7 with 88% neutrophils. Increased to 10.6 with 89% neutrophils. - CTA chest was performed indicating worsened chronic interstitial lung disease. Cannot rule out superimposed infection. - CXR indicated new opacities may be secondary to infection - Contiue IV cefepime and doxycycline Qualifiers: (5) Idiopathic pulmonary fibrosis Status: Chronic Assessment & Plan: - Patient follows with Dr. Kim at for this - He is currently in a trial which he started in January. He is taking nebulized treprostinil for this trial. Holding this medication - Hold Ofev for his pulmonary fibrosis - Contact Dr. Kim at with any questions - CTA chest was performed indicating worsened chronic interstitial lung disease. Cannot rule out superimposed infection. (6) Status post total knee replacement, right Status: Acute Assessment & Plan: - Schedule daily PT for knee rehab - Continue pain medication PRN for knee pain (7) Gout Status: Chronic Assessment & Plan: - Continue [employer] allopurinol (8) Depression Status: Chronic Assessment & Plan: - Continue [employer] citalopram Qualifiers: Qualified Codes: F32.A - Depression, unspecified (9) GERD (gastroesophageal reflux disease) Status: Chronic Assessment & Plan: - Continue [employer] omeprazole (10) Hyperkalemia Status: Resolved LEE MONET MD 08/15/236: Supervisory-Addendum Brief Supervisory Addendum Verification and Attestation of Medical Student E/M Service A medical student performed and documented this service in my presence. I reviewed and verified all information documented by the medical student and made modifications to such information, when appropriate. I personally performed the physical exam and medical decision making. Lee Monet, Aug 15, 2023,16:54 A/P Acute on Chronic Respiratory failure with hypoxia Idopathic Pulmonary Fibrosis Progressive shortness of breath - CTA neg for PE, PNA vs fluid overload, MAT protocol, titrate oxygen as tolerated - 08/15: Improving, continue to titrate oxygen as tolerated, switch steroids to PO Atrial fibrillation ? new onset CHF - Cardiology consulted, appreciate recommendations, Echo pending, continue OAC - 08/15: Preserved EF Recent Right Total Knee - Continue PT SEBASTIAN REYNOLDS Aug 15, 2023 09:03 LEE MONET MD Aug 15, 2023 16:56
--- NOTE | 2023-08-15 10:30 | Physical Therapy Daily Note ---
PT Daily Note-Current Subjective Patient agrees to PT. Spouse present Pain Section J - Health Conditions 1. Rarely or not at all 2. Occasionally 3. Frequently 4. Almost constantly 8. Unable to answer Pain Effect on Sleep: 1 Pain Interference with Therapy: 1 Pain Interference w/Day-to-Day: 1 Mental Status Attachments: Oxygen (4L NC) Transfers SCALE: Activities may be completed with or without assistive devices. 6-Igldybmeuh-ddybxdm completes the activity by him/herself with no assistance from a helper. 5-Set-up or Clean-up Assistance-helper sets up or cleans up; patient completes activity. [place] assists only prior to or following the activity. 4-Supervision or Touching Assistance-helper provides verbal cues and/or touching/steadying and/or contact guard assistance as patient completes activity. Assistance may be provided throughout the activity or intermittently. 3-Partial/Moderate Assistance-helper does LESS THAN HALF the effort. [place] lifts, holds or supports trunk or limbs, but provides less than half the effort. 2-Substantial/Maximal Assistance-helper does MORE THAN HALF the effort. [place] lifts or holds trunk or limbs and provides more than half the effort. 4-Rlsgprljq-yhsbhp does ALL the effort. Patient does none of the effort to complete the activity. Or, the assistance of 2 or more helpers is required for the patient to complete the activity. If activity was not attempted, code reason: 7-Patient Refused. 9-Not Applicable-not attempted and the patient did not perform the activity before the current illness, exacerbation or injury. 10-Not Attempted due to Environmental Limitations-(lack of equipment, weather restraints, etc.). 88-Not Attempted due to Medical Conditions or Safety Concerns. Sit to Stand (QC): 6 Weight Bearing Right Lower Extremity: Right Weight Bearing/Tolerated Left Lower Extremity: Left Weight Bearing/Tolerated Gait Training Distance: 350' Walk 10 feet (QC): 6 Walk 50 ft with 2 Turns(QC): 6 Walk 150 ft (QC): 6 Gait Assistive Device: FWW steady reciprocal pattern Exercises Supine Ex: Ankle pumps, Quad Set, Heel Slides, Straight leg raise Supine Reps: 15 (in recliner with bilateral LE elevated) Seated Therapy Exercises: Long arc quads Seated Reps: 15 Assessment AROM right knee 0-95 degrees. Patient and spouse instructed to ambulate PRN in hallway with O2. Both voice understanding. Plan dismissal to home and from PT tomorrow. PT Short Term Goals Short Term Goals Time Frame: Aug 18, 2023 Roll Left & Right: 6 Sit to lyin Lying to sitting on side of be: 6 Sit to stand: 6 Chair/gbh-cm-pblcm transfer: 6 Toilet transfer: 6 Walk 10 feet: 6 Walk 50 feet with two turns: 6 Walk 150 feet: 6 PT Plan Treatment/Plan Treatment Plan: Continue Plan of Care Treatment Plan: Bed Mobility, Education, Functional Activity Jessica, Functional Strength, Gait, Safety, Therapeutic Exercise, Transfers Treatment Duration: Aug 18, 2023 Frequency: 5 times per week Estimated Hrs Per Day: .25 hour per day Time Time In: 1010 Time Out: 1020 DATE: Aug 15, 2023 Total Billed Treatment Time: 10 Total Billed Treatment 1 visit FA 10 min WILL SANTIAGO PT Aug 15, 2023 10:30
--- NOTE | 2023-08-15 12:08 | Progress Note - Cardiology ---
Cardiology SOAP Progress Note Subjective: Sitting up in the recliner at the bedside No c/o CP Feels breathing has improved No LE swelling Objective: I&O/Vital Signs 08/15/23 08/16/23 08/16/23 08/16/23 23:18 03:15 07:04 07:50 Temp 36.3 36.6 36.6 Pulse 73 74 80 Resp 16 16 19 B/P (MAP) 134/74 (94) 136/77 (96) 158/75 (102) Pulse Ox 95 94 96 96 O2 Delivery Nasal Cannula Nasal Cannula Nasal Cannula Nasal Cannula O2 Flow Rate 4.00 4.00 2.00 4.00 4.00 4.00 08/16/23 00:00 Intake Total 2030 ml Output Total 1800 ml Balance 230 ml Weight (Pounds): 200 Weight (Ounces): 0.0 Weight (Calculated Kilograms): 90.697326 Constitutional: AAO x 3, well-developed, well-nourished Respiratory: other (dminished throughout with coarse breath sounds ) Cardiovascular: regular rate-rhythm; No JVD; S1 and S2, systolic murmur Gastrointestional: No tender; soft; No guarding; audible bowel sounds Extremities: other (dressing in place to right knee; D&I), no lower extremity edema bilateral Neurologic/Psychiatric: grossly intact (moves all extemities) Skin: No rash on exposed areas, No ulcerations on exposed areas; other (see above) Results/Procedures: Labs Laboratory Tests 08/16/23 05:40: White Blood Count 9.7, Red Blood Count 3.61L, Hemoglobin 10.6L, Hematocrit 32L, Mean Corpuscular Volume 89, Mean Corpuscular Hemoglobin 29, Mean Corpuscular Hemoglobin Concent 33, Red Cell Distribution Width 14.6H, Platelet Count 266, Mean Platelet Volume 9.2, Immature Granulocyte % (Auto) 1, Neutrophils (%) (Auto) 75, Lymphocytes (%) (Auto) 10L, Monocytes (%) (Auto) 10, Eosinophils (%) (Auto) 4, Basophils (%) (Auto) 0, Neutrophils # (Auto) 7.2, Lymphocytes # (Auto) 1.0, Monocytes # (Auto) 1.0, Eosinophils # (Auto) 0.4H, Basophils # (Auto) 0.0, Immature Granulocyte # (Auto) 0.1, Sodium Level 138, Potassium Level 4.7, Chloride Level 106, Carbon Dioxide Level 24, Anion Gap 8, Blood Urea Nitrogen 29H, Creatinine 1.27, Estimat Glomerular Filtration Rate 60, BUN/Creatinine Ratio 23, Glucose Level 95, Calcium Level 8.5, Corrected Calcium 9.3, Phosphorus Level 3.3, Magnesium Level 2.1, Total Bilirubin 0.7, Aspartate Amino Transf (AST/SGOT) 20, Alanine Aminotransferase (ALT/SGPT) 13, Alkaline Phosphatase 34L, Total Protein 5.8L, Albumin 3.0L Microbiology 08/14/23 MRSA Screen - Final, Complete MRSA not isolated 08/13/23 Urine Culture - Preliminary, Resulted Culture In Progress 08/13/23 Blood Culture - Preliminary, Resulted A/P: Assessment: Progressive BALTAZAR - multifactorial d/t pneumonia; pulmonary fibrosis H/O Coronary artery disease, - cardiac catheterization done on August 18, [address] Bobby: showing mild coronary artery disease nonobstructive disease. Patient had tortuous right brachial artery required cancellation of the procedure from the radial approach and had the procedure done through the femoral approach with excellent results. Paroxysmal atrial tachycardia/possible flutter - H/O narrow complex tachycardia - Patient had a short run of wide-complex ventricular tachycardia on May 16, 2021 for 15 beats, he was asymptomatic. - Had a loop monitor reported as atrial fibrillation. Questionable atrial flutter, underwent ablation with Dr. Thad Rodriguez on August 25, 2021 for atrial tachycardia possibly flutter. No fibrillation ablation was done. - He is followed and monitored by Dr. Rodriguez, had an ablation done with Dr. Rodriguez, was seen by Dr. Stahl and Dr. Stahl has signed off. - Loop monitor interrogation last done on March 10, 2022, it was implanted in July 2018. - No further arrhythmia was detected - loop explanted - [id number] score of 1, low risk of stroke, maintained on aspirin. - Mild degree of sinus node dysfunction per Dr. Bobby report, had a 3 seconds pause asymptomatic. Twelve-lead EKG done on May 04, 2023 with normal sinus rhythm, normal axis, no abnormality. Echocardiogram done 08-14-23 showing normal LV size, EF 60-65%. PA 45-50 mmHg. Hyperlipidemia H/O Hypertension Pulmonary fibrosis and restrictive lung disease with chronic dyspnea - managed by Dr. Moreno of pulmonary services at [facility] History of dizziness and near syncope - no recent episodes were reported - Tilt table test done by Dr. Brito in June 2018 reported as positive with episode of hypotension and blood pressure was down to 43 mmHg improved with IV fluid. No further episodes of syncope. 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
[2023-08-15 12:13] VITALS: BP 121/56
[2023-08-15 16:41] VITALS: BP 130/63
[2023-08-15] MEDS: ACETAMINOPHEN 325 MG TABLET PO PRN (17:14)
--- NOTE | 2023-08-15 17:40 | Progress Note - Cardiology ---
Cardiology SOAP Progress Note Subjective: Gen weakness and malaise No focal weakness No cp or palp or syncope Shortness of breath with mod exertion Objective: I&O/Vital Signs 08/15/23 08/15/23 08/15/23 08/15/23 07:03 07:37 08:00 08:05 Temp 36.3 Pulse 64 70 Resp 16 B/P (MAP) 120/69 (86) Pulse Ox 95 94 94 O2 Delivery Nasal Cannula Nasal Cannula Nasal Cannula O2 Flow Rate 3.00 2.00 2.00 08/15/23 08/15/23 08/15/23 08/15/23 11:13 12:13 14:56 16:41 Temp 36.4 36.3 Pulse 63 61 Resp 16 16 B/P (MAP) 121/56 (77) 130/63 (85) Pulse Ox 99 96 93 97 O2 Delivery Nasal Cannula Room Air Nasal Cannula Nasal Cannula O2 Flow Rate 2.00 2.00 4.00 08/15/23 00:00 Intake Total 1145 ml Output Total 220 ml Balance 925 ml Weight (Pounds): 200 Weight (Ounces): 0.0 Weight (Calculated Kilograms): 90.997016 Constitutional: AAO x 3, well-developed, well-nourished Respiratory: other (dminished throughout with coarse breath sounds ) Cardiovascular: regular rate-rhythm; No JVD; S1 and S2, systolic murmur Gastrointestional: No tender; soft; No guarding; audible bowel sounds Extremities: other (dressing in place to right knee; D&I), no lower extremity edema bilateral Neurologic/Psychiatric: grossly intact (moves all extemities) Skin: No rash on exposed areas, No ulcerations on exposed areas; other (see above) Results/Procedures: Labs Laboratory Tests 08/15/23 05:13: White Blood Count 10.6, Red Blood Count 3.48L, Hemoglobin 10.2L, Hematocrit 31L, Mean Corpuscular Volume 88, Mean Corpuscular Hemoglobin 29, Mean Corpuscular Hemoglobin Concent 33, Red Cell Distribution Width 14.6H, Platelet Count 240, Mean Platelet Volume 9.0, Immature Granulocyte % (Auto) 1, Neutrophils (%) (Auto) 89H, Lymphocytes (%) (Auto) 5L, Monocytes (%) (Auto) 6, Eosinophils (%) (Auto) 0, Basophils (%) (Auto) 0, Neutrophils # (Auto) 9.4H, Lymphocytes # (Auto) 0.5L, Monocytes # (Auto) 0.6, Eosinophils # (Auto) 0.0, Basophils # (Auto) 0.0, Immature Granulocyte # (Auto) 0.1, Sodium Level 135, Potassium Level 4.9, Chloride Level 101, Carbon Dioxide Level 25, Anion Gap 9, Blood Urea Nitrogen 27H, Creatinine 1.39H, Estimat Glomerular Filtration Rate 54, BUN/Creatinine Ratio 19, Glucose Level 139H, Calcium Level 8.5, Corrected Calcium 9.2, Phosphorus Level 4.0, Magnesium Level 2.5H, Total Bilirubin 0.6, Aspartate Amino Transf (AST/SGOT) 18, Alanine Aminotransferase (ALT/SGPT) 12, Alkaline Phosphatase 38L, Total Protein 6.1L, Albumin 3.1L Microbiology 08/14/23 MRSA Screen - Final, Complete MRSA not isolated 08/13/23 Urine Culture - Preliminary, Resulted Culture In Progress 08/13/23 Blood Culture - Preliminary, Resulted Laboratory Tests 08/13/23 18:00 08/14/23 05:56 08/15/23 05:13 A/P: Assessment: Progressive BALTAZAR - multifactorial d/t pneumonia; pulmonary fibrosis H/O Coronary artery disease, - cardiac catheterization done on August 18, [address] Bobby: showing mild coronary artery disease nonobstructive disease. Patient had tortuous right brachial artery required cancellation of the procedure from the radial approach and had the procedure done through the femoral approach with excellent results. Paroxysmal atrial tachycardia/possible flutter - H/O narrow complex tachycardia - Patient had a short run of wide-complex ventricular tachycardia on May 16, 2021 for 15 beats, he was asymptomatic. - Had a loop monitor reported as atrial fibrillation. Questionable atrial flutter, underwent ablation with Dr. Thad Rodriguez on August 25, 2021 for atrial tachycardia possibly flutter. No fibrillation ablation was done. - He is followed and monitored by Dr. Rodriguez, had an ablation done with Dr. Rodriguez, was seen by Dr. Stahl and Dr. Stahl has signed off. - Loop monitor interrogation last done on March 10, 2022, it was implanted in July 2018. - No further arrhythmia was detected - loop explanted - [id number] score of 1, low risk of stroke, maintained on aspirin. - Mild degree of sinus node dysfunction per Dr. Bobby report, had a 3 seconds pause asymptomatic. Twelve-lead EKG done on May 04, 2023 with normal sinus rhythm, normal axis, no abnormality. Echocardiogram done 08-14-23 showing normal LV size, EF 60-65%. PA 45-50 mmHg. Hyperlipidemia H/O Hypertension Pulmonary fibrosis and restrictive lung disease with chronic dyspnea - managed by Dr. Moreno of pulmonary services at [facility] History of dizziness and near syncope - no recent episodes were reported - Tilt table test done by Dr. Brito in June 2018 reported as positive with episode of hypotension and blood pressure was down to 43 mmHg improved with IV fluid. No further episodes of syncope. 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
[2023-08-15 19:17] VITALS: BP 121/62
[2023-08-15] MEDS: TAMSULOSIN 0.4 MG (FLOMAX) CAP PO SCH (21:57)
[2023-08-15] MEDS: ZOLPIDEM 5 MG (AMBIEN) TAB PO SCH (21:57)
[2023-08-15] MEDS: ALLOPURINOL 300 MG TABLET PO SCH (21:59)
[2023-08-15 23:18] VITALS: BP 134/74
[2023-08-16] MEDS: CEFEPIME 1,000 MG/NS 50 ML IVPB IV SCH ×6 (01:08→13:27)
[2023-08-16 03:15] VITALS: BP 136/77
[2023-08-16 05:49] LABS: BASOPHILS % (AUTO) 0 % (0-10); EOSINOPHILS # (AUTO) 0.4 10^3/uL (0.0-0.3); EOSINOPHILS % (AUTO) 4 % (0-10); HEMATOCRIT 32 % (40-54); HEMOGLOBIN 10.6 g/dL (13.3-17.7); LYMPHOCYTES % (AUTO) 10 % (12-44); MEAN CORPUSCULAR HEMOGLOBIN 29 pg (25-34); MEAN CORPUSCULAR HGB CONC 33 g/dL (32-36); MEAN CORPUSCULAR VOLUME 89 fL (80-99); MEAN PLATELET VOLUME 9.2 fL (9.0-12.2); MONOCYTES % (AUTO) 10 % (0-12); NEUTROPHILS # (AUTO) 7.2 10^3/uL (1.8-7.8); NEUTROPHILS % (AUTO) 75 % (42-75); PLATELET COUNT 266 10^3/uL (130-400); WHITE BLOOD COUNT 9.7 10^3/uL (4.3-11.0)
[2023-08-16] MEDS: ENOXAPARIN 40 MG/0.4 ML SYRINGE SC SCH (06:23)
[2023-08-16 06:24] LABS: POTASSIUM 4.7 MMOL/L (3.6-5.0)
[2023-08-16 06:25] LABS: CALCIUM 8.5 MG/DL (8.5-10.1)
[2023-08-16 06:26] LABS: TOTAL PROTEIN 5.8 GM/DL (6.4-8.2)
[2023-08-16 06:28] LABS: BILIRUBIN,TOTAL 0.7 MG/DL (0.1-1.0)
[2023-08-16 06:29] LABS: PHOSPHORUS 3.3 MG/DL (2.3-4.7)
[2023-08-16 06:30] LABS: CREATININE SERUM 1.27 MG/DL (0.60-1.30)
[2023-08-16 06:34] LABS: MAGNESIUM 2.1 MG/DL (1.6-2.4)
[2023-08-16] MEDS: MAGNESIUM 1 GM/100 ML IVPB 100 ML IV SCH (06:44)
[2023-08-16] MEDS: POTASSIUM CHLORIDE 20 MEQ TABLET PO SCH (06:44)
[2023-08-16] MEDS: POTASSIUM CL 10MEQ/50ML IVPB 50 ML IV SCH (06:44)
[2023-08-16] MEDS ORDERED: predniSONE 20 MG TABLET PO SCH (07:00)
[2023-08-16] MEDS: RT-Ipratropium/Albuterol NEB 3 ML VIAL INH SCH ×3 (07:03→15:09)
[2023-08-16 07:50] VITALS: BP 158/75
[2023-08-16] MEDS: ASPIRIN 81 MG CHEWABLE TABLET PO SCH (08:12)
[2023-08-16] MEDS: FUROSEMIDE INJECTION 40 MG/4 ML VIAL IV SCH (08:12)
[2023-08-16] MEDS: CITALOPRAM 20 MG TABLET PO SCH (08:12)
[2023-08-16] MEDS: DOCUSATE SODIUM 100 MG CAPSULE PO SCH (08:12)
--- NOTE | 2023-08-16 08:26 | Progress Note ---
SEBASTIAN REYNOLDS 08/16/23 0826: Subjective Subjective/Events-last exam Patient was resting in bed this morning. He had just vomited when I saw him. The vomit had the appearance of bile. He had also been blowing his nose that was blood-tinged. He said he had a bloody nose last night. Patient continues to endorse sob with any exertion. He is was satting in the 90's on 4L/NC this morning. Endorses headache, n/v, sob, and a wet cough with yellow sputum. Denies vision changes, chest pain, abdominal pain, dysuria, or constipation. Patient says he uses nasal saline irrigation at home and this usually helps with his congestion. In addition, patient uses CPAP at home and he has not been using it in the hospital. He says his knee is pretty sore this morning due to extensive PT yesterday. Patient is very ready for discharge. Focused Exam Lactate Level 08/13/23 18:00: Lactic Acid Level 0.87 Objective Exam Last Set of Vital Signs Vital Signs Date Time Temp Pulse Resp B/P (MAP) Pulse Ox O2 Delivery O2 Flow Rate FiO2 08/16/23 07:50 36.6 80 19 158/75 (102) 96 Nasal Cannula 4.00 Capillary Refill : I&O Intake and Output 08/16/23 00:00 Intake Total 2330 ml Output Total 1800 ml Balance 530 ml Intake Oral 2130 ml IV Total 200 ml Output Urine Total 1800 ml # Bowel Movements 2 General: Alert, Oriented X3, Cooperative Lungs: Other (Inspiratory crackles at lung bases) Heart: Regular Rate, Normal S1, Normal S2, No Murmurs Abdomen: Normal Bowel Sounds, Soft, No Tenderness, No Hepatosplenomegaly Extremities: No Clubbing, No Cyanosis, No Edema, Normal Pulses, No Tenderness/Swelling Skin: No Rashes, No Breakdown, No Significant Lesion Psych/Mental Status: Mental Status NL, Mood NL Results/Procedures Lab Laboratory Tests 08/16/23 05:40: White Blood Count 9.7, Red Blood Count 3.61L, Hemoglobin 10.6L, Hematocrit 32L, Mean Corpuscular Volume 89, Mean Corpuscular Hemoglobin 29, Mean Corpuscular Hemoglobin Concent 33, Red Cell Distribution Width 14.6H, Platelet Count 266, Mean Platelet Volume 9.2, Immature Granulocyte % (Auto) 1, Neutrophils (%) (Auto) 75, Lymphocytes (%) (Auto) 10L, Monocytes (%) (Auto) 10, Eosinophils (%) (Auto) 4, Basophils (%) (Auto) 0, Neutrophils # (Auto) 7.2, Lymphocytes # (Auto) 1.0, Monocytes # (Auto) 1.0, Eosinophils # (Auto) 0.4H, Basophils # (Auto) 0.0, Immature Granulocyte # (Auto) 0.1, Sodium Level 138, Potassium Level 4.7, Chloride Level 106, Carbon Dioxide Level 24, Anion Gap 8, Blood Urea Nitrogen 29H, Creatinine 1.27, Estimat Glomerular Filtration Rate 60, BUN/Creatinine Ratio 23, Glucose Level 95, Calcium Level 8.5, Corrected Calcium 9.3, Phosphorus Level 3.3, Magnesium Level 2.1, Total Bilirubin 0.7, Aspartate Amino Transf (AST/SGOT) 20, Alanine Aminotransferase (ALT/SGPT) 13, Alkaline Phosphatase 34L, Total Protein 5.8L, Albumin 3.0L Microbiology 08/14/23 MRSA Screen - Final, Complete MRSA not isolated 08/13/23 Urine Culture - Preliminary, Resulted Culture In Progress 08/13/23 Blood Culture - Preliminary, Resulted Radiology NAME: BETO BURNS [facility] REC#: [id number] PT STATUS: REG ER : 1950 PHYSICIAN: BRITTANY POE MD ADMIT DATE: 08/13/23/ER FS Signed Date of Exam:08/13/23 CT ANGIO CHEST W (R/O PE) INDICATION: Shortness of air, 10 days postop. COMPARISON: None. FINDINGS: Pulmonary arterial branches are widely patent and well opacified. No pulmonary arterial embolus. Thoracic aorta patent, nonaneurysmal and is nonacute. There is progressive five lobe interstitial lung disease with subpleural honeycombing greatest in the lung bases. Bronchiectasis and patchy multifocal groundglass opacities. The groundglass densities are likely also progressive chronic lung disease but an acute infectious component could not be excluded given the progression from 2019. Heart size enlarged but unchanged. No pleural or pericardial effusion. No airspace consolidation or bronchograms. There is no pneumothorax. IMPRESSION: 1. Worsened chronic interstitial lung disease which likely also accounts for the new groundglass opacities; however, nonspecific infectious disease superimposed could not be excluded. 2. No PE or acute aortic pathology. No effusion or pneumothorax. Dictated by: Dictated on workstation # [id number] Dict: 08/13/231917 Trans: 08/13/231948 PJYg [id number] Interpreted by: TARIQ STEVENS Electronically signed by: TARIQ STEVENS 08/13/231948 NAME: BETO BURNS [facility] REC#: [id number] PT STATUS: REG ER : 1950 PHYSICIAN: BRITTANY POE MD ADMIT DATE: 08/13/23/ER FS Signed Date of Exam:08/13/23 CHEST 1 VIEW AP/PA ONLY INDICATION: Shortness of breath, postop. COMPARISON: 08/18/2021. FINDINGS: There are new patchy multifocal nodular interstitial type infiltrates consistent with nonspecific infectious disease or heterogeneous pulmonary edema. The heart size is within normal limits. There is no effusion or pneumothorax. IMPRESSION: New multifocal pulmonary opacities favored to reflect pneumonia. Stable heart size with no pleural pathology. Dictated by: Dictated on workstation # [id number] Dict: 08/13/231815 Trans: 08/13/231853 PJYg [id number] Interpreted by: TARIQ STEVENS Electronically signed by: TARIQ STEVENS 08/13/231853 Assessment/Plan Assessment/Plan (1) Hypoxia Status: Acute Assessment & Plan: - Pulmonary embolism ruled out with CTA - Echo results: Moderate concentric hypertrophy of the LV. EF is 60-65%. PA systolic pressure 45-50. - Continue using incentive spirometer - Continue ipratropium/albuterol. - Switched decadron to prednisone 40mg until 08/18 - Treating with cefepime and doxycycline for possible pneumonia - Continue trying to decrease O2 requirements. Patients baseline is no O2 supplementation. - O2 tests were ran and patient is using 4-6L at rest and satting in the lower 90's. He is using 6-8L when ambulating. - D/c Lasix (2) Pneumonia Status: Acute Assessment & Plan: - CTA chest was performed indicating worsened chronic interstitial lung disease. Cannot rule out superimposed infection. - CXR indicated new opacities may be secondary to infection - Contiue IV cefepime and doxycycline - Repeating chest xray Qualifiers: (3) Urinary tract infection Status: Acute Assessment & Plan: - Patient had a UA performed showing 10-15 WBCs. He also endorses dysuria on ROS. - It is questionable whether he has a UTI - Currently treating possible UTI and pneumonia with IV cefepime and doxycycline Qualifiers: Qualified Codes: N39.0 - Urinary tract infection, site not specified (4) Idiopathic pulmonary fibrosis Status: Chronic Assessment & Plan: - Patient follows with Dr. Kim at for this - He is currently in a trial which he started in January. He is taking nebulized treprostinil for this trial. Holding this medication - Hold Ofev for his pulmonary fibrosis - Contact Dr. Kim at with any questions - CTA chest was performed indicating worsened chronic interstitial lung disease. Cannot rule out superimposed infection. 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 I reviewed and verified all information documented by the medical student and made modifications to such information, when appropriate. I personally performed the physical exam and medical decision making. Lee Monet, Aug 31, 2023,17:49 SEBASTIAN REYNOLDS Aug 16, 2023 08:26 LEE MONET MD Aug 31, 2023 17:49
--- NOTE | 2023-08-16 10:01 | Progress Note - Cardiology ---
Cardiology SOAP Progress Note Subjective: Sitting up in recliner Reports right knee pain No c/o CP Feels SOB is better Reports episode of nausea and emesis this morning Objective: I&O/Vital Signs Weight (Pounds): 200 Weight (Ounces): 0.0 Weight (Calculated Kilograms): 90.309705 Constitutional: AAO x 3, well-developed, well-nourished Respiratory: other (dminished throughout with coarse breath sounds ) Cardiovascular: regular rate-rhythm; No JVD; S1 and S2, systolic murmur Gastrointestional: No tender; soft; No guarding; audible bowel sounds Extremities: other (dressing in place to right knee; D&I), no lower extremity edema bilateral Neurologic/Psychiatric: grossly intact (moves all extemities) Skin: No rash on exposed areas, No ulcerations on exposed areas; other (see above) Results/Procedures: Labs Microbiology 08/14/23 MRSA Screen - Final, Complete MRSA not isolated 08/13/23 Urine Culture - Final, Complete NO GROWTH 08/13/23 Blood Culture - Final, Complete A/P: Assessment: Progressive BALTAZAR - multifactorial d/t pneumonia; pulmonary fibrosis H/O Coronary artery disease, - cardiac catheterization done on August 18, [address] Bobby: showing mild coronary artery disease nonobstructive disease. Patient had tortuous right brachial artery required cancellation of the procedure from the radial approach and had the procedure done through the femoral approach with excellent results. Paroxysmal atrial tachycardia/possible flutter - H/O narrow complex tachycardia - Patient had a short run of wide-complex ventricular tachycardia on May 16, 2021 for 15 beats, he was asymptomatic. - Had a loop monitor reported as atrial fibrillation. Questionable atrial flutter, underwent ablation with Dr. Thad Rodriguez on August 25, 2021 for atrial tachycardia possibly flutter. No fibrillation ablation was done. - He is followed and monitored by Dr. Rodriguez, had an ablation done with Dr. Rodriguez, was seen by Dr. Stahl and Dr. Stahl has signed off. - Loop monitor interrogation last done on March 10, 2022, it was implanted in July 2018. - No further arrhythmia was detected - loop explanted - [id number] score of 1, low risk of stroke, maintained on aspirin. - Mild degree of sinus node dysfunction per Dr. Bobby report, had a 3 seconds pause asymptomatic. Twelve-lead EKG done on May 04, 2023 with normal sinus rhythm, normal axis, no abnormality. Echocardiogram done 08-14-23 showing normal LV size, EF 60-65%. PA 45-50 mmHg. Hyperlipidemia H/O Hypertension Pulmonary fibrosis and restrictive lung disease with chronic dyspnea - managed by Dr. Moreno of pulmonary services at [facility] History of dizziness and near syncope - no recent episodes were reported - Tilt table test done by Dr. Brito in June 2018 reported as positive with episode of hypotension and blood pressure was down to 43 mmHg improved with IV fluid. No further episodes of syncope. 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
--- NOTE | 2023-08-16 11:03 | Physical Therapy Daily Note ---
PT Daily Note-Current Subjective Patient sitting in chair upon PT arrival, agreeable to treatment. Patient rates pain at 4-5/10 in right knee. He states "They just took me off of O2 to try and see if I can go home." Pain Section J - Health Conditions 1. Rarely or not at all 2. Occasionally 3. Frequently 4. Almost constantly 8. Unable to answer Pain Effect on Sleep: 1 Pain Interference with Therapy: 1 Pain Interference w/Day-to-Day: 1 Transfers SCALE: Activities may be completed with or without assistive devices. 1-Jdmtgtwaqi-khgbcdm completes the activity by him/herself with no assistance from a helper. 5-Set-up or Clean-up Assistance-helper sets up or cleans up; patient completes activity. Tenino assists only prior to or following the activity. 4-Supervision or Touching Assistance-helper provides verbal cues and/or touching/steadying and/or contact guard assistance as patient completes activity. Assistance may be provided throughout the activity or intermittently. 3-Partial/Moderate Assistance-helper does LESS THAN HALF the effort. Tenino lifts, holds or supports trunk or limbs, but provides less than half the effort. 2-Substantial/Maximal Assistance-helper does MORE THAN HALF the effort. Tenino lifts or holds trunk or limbs and provides more than half the effort. 8-Kghgxfbbt-wglkvs does ALL the effort. Patient does none of the effort to compl ete the activity. Or, the assistance of 2 or more helpers is required for the patient to complete the activity. If activity was not attempted, code reason: 7-Patient Refused. 9-Not Applicable-not attempted and the patient did not perform the activity before the current illness, exacerbation or injury. 10-Not Attempted due to Environmental Limitations-(lack of equipment, weather restraints, etc.). 88-Not Attempted due to Medical Conditions or Safety Concerns. Sit to Stand (QC): 4 Chair/Wxc-vp-Jsfzg Xfer(QC): 4 Weight Bearing Right Lower Extremity: Right Weight Bearing/Tolerated Left Lower Extremity: Left Weight Bearing/Tolerated Gait Training Does the Patient Walk?: Yes Distance: 150' Walk 10 feet (QC): 4 Walk 50 ft with 2 Turns(QC): 4 Walk 150 ft (QC): 4 Gait Assistive Device: FWW Assessment Current Status: Fair Progress Patient tolerated treatment well with no reports of respiratory symptoms. Patient performs transfers with SBA. Patient ambulates 150' with FWW, with SBA and verbal cues for safety. Pt O2 was 86-87% on room air upon PT arrival. Attempted to ambulate and O2 decreased to 77%. Patient ambulates ~12 feet then 4 L O2 was donned. O2 sats increased to 84%. O2 increased to 6 L and sats increased to 90%. After ambulating ~75 feet, sats declined again to 84-86%. O2 increased to 8 L and sats increased to 91-92%. Patient ambulates back to the [facility] where he was placed on 4 L O2. Nurse notified in detail. PT Short Term Goals Short Term Goals Time Frame: Aug 18, 2023 Roll Left & Right: 6 Sit to lyin Lying to sitting on side of be: 6 Sit to stand: 6 Chair/pds-op-iobln transfer: 6 Toilet transfer: 6 Walk 10 feet: 6 Walk 50 feet with two turns: 6 Walk 150 feet: 6 PT Plan Treatment/Plan Treatment Plan: Continue Plan of Care Treatment Plan: Bed Mobility, Education, Functional Activity Jessica, Functional Strength, Gait, Safety, Therapeutic Exercise, Transfers Treatment Duration: Aug 18, 2023 Frequency: 5 times per week Estimated Hrs Per Day: .25 hour per day Safety Risks/Education Patient Education: Gait Training, Transfer Techniques Teaching Recipient: Patient Teaching Methods: Demonstration, Discussion Response to Teaching: Verbalize Understanding, Return Demonstration Time Time In: 1025 Time Out: 1041 DATE: Aug 16, 2023 Total Billed Treatment Time: 16 Total Billed Treatment Visit, DOC RENE PT Aug 16, 2023 11:03
--- NOTE | 2023-08-16 12:01 | Progress Note - Cardiology ---
Cardiology SOAP Progress Note Subjective: No cp or palp or syncope Shortness of breath better Some n/v this am being managed by the hospitalist helen No focal weakness Objective: I&O/Vital Signs 08/16/23 08/16/23 08/16/23 08/16/23 03:15 07:04 07:50 08:00 Temp 36.6 36.6 Pulse 74 80 Resp 16 19 B/P (MAP) 136/77 (96) 158/75 (102) Pulse Ox 94 96 96 O2 Delivery Nasal Cannula Nasal Cannula Nasal Cannula Nasal Cannula O2 Flow Rate 4.00 2.00 4.00 4.00 4.00 08/16/23 10:39 Pulse Ox 96 O2 Delivery Nasal Cannula O2 Flow Rate 2.00 08/16/23 00:00 Intake Total 2030 ml Output Total 1800 ml Balance 230 ml Weight (Pounds): 200 Weight (Ounces): 0.0 Weight (Calculated Kilograms): 90.964532 Constitutional: AAO x 3, well-developed, well-nourished Respiratory: other (dminished throughout with coarse breath sounds ) Cardiovascular: regular rate-rhythm; No JVD; S1 and S2, systolic murmur Gastrointestional: No tender; soft; No guarding; audible bowel sounds Extremities: other (dressing in place to right knee; D&I), no lower extremity edema bilateral Neurologic/Psychiatric: other (moves all limbs equally) Skin: No rash on exposed areas, No ulcerations on exposed areas; other (see above) Results/Procedures: Labs Laboratory Tests 08/16/23 05:40: White Blood Count 9.7, Red Blood Count 3.61L, Hemoglobin 10.6L, Hematocrit 32L, Mean Corpuscular Volume 89, Mean Corpuscular Hemoglobin 29, Mean Corpuscular Hemoglobin Concent 33, Red Cell Distribution Width 14.6H, Platelet Count 266, Mean Platelet Volume 9.2, Immature Granulocyte % (Auto) 1, Neutrophils (%) (Auto) 75, Lymphocytes (%) (Auto) 10L, Monocytes (%) (Auto) 10, Eosinophils (%) (Auto) 4, Basophils (%) (Auto) 0, Neutrophils # (Auto) 7.2, Lymphocytes # (Auto) 1.0, Monocytes # (Auto) 1.0, Eosinophils # (Auto) 0.4H, Basophils # (Auto) 0.0, Immature Granulocyte # (Auto) 0.1, Sodium Level 138, Potassium Level 4.7, Chloride Level 106, Carbon Dioxide Level 24, Anion Gap 8, Blood Urea Nitrogen 29H, Creatinine 1.27, Estimat Glomerular Filtration Rate 60, BUN/Creatinine Ratio 23, Glucose Level 95, Calcium Level 8.5, Corrected Calcium 9.3, Phosphorus Level 3.3, Magnesium Level 2.1, Total Bilirubin 0.7, Aspartate Amino Transf (AST/SGOT) 20, Alanine Aminotransferase (ALT/SGPT) 13, Alkaline Phosphatase 34L, Total Protein 5.8L, Albumin 3.0L Microbiology 08/14/23 MRSA Screen - Final, Complete MRSA not isolated 08/13/23 Urine Culture - Preliminary, Resulted Culture In Progress 08/13/23 Blood Culture - Preliminary, Resulted A/P: Assessment: Progressive BALTAZAR - multifactorial d/t pneumonia; pulmonary fibrosis H/O Coronary artery disease, - cardiac catheterization done on August 18, [address] Bobby: showing mild coronary artery disease nonobstructive disease. Patient had tortuous right brachial artery required cancellation of the procedure from the radial approach and had the procedure done through the femoral approach with excellent results. Paroxysmal atrial tachycardia/possible flutter - H/O narrow complex tachycardia - Patient had a short run of wide-complex ventricular tachycardia on May 16, 2021 for 15 beats, he was asymptomatic. - Had a loop monitor reported as atrial fibrillation. Questionable atrial flutter, underwent ablation with Dr. Thad Rodriguez on August 25, 2021 for atrial tachycardia possibly flutter. No fibrillation ablation was done. - He is followed and monitored by Dr. Rodriguez, had an ablation done with Dr. Rodriguez, was seen by Dr. Stahl and Dr. Stahl has signed off. - Loop monitor interrogation last done on March 10, 2022, it was implanted in July 2018. - No further arrhythmia was detected - loop explanted - [id number] score of 1, low risk of stroke, maintained on aspirin. - Mild degree of sinus node dysfunction per Dr. Bobby report, had a 3 seconds pause asymptomatic. Twelve-lead EKG done on May 04, 2023 with normal sinus rhythm, normal axis, no abnormality. Echocardiogram done 08-14-23 showing normal LV size, EF 60-65%. PA 45-50 mmHg. Hyperlipidemia H/O Hypertension Pulmonary fibrosis and restrictive lung disease with chronic dyspnea - managed by Dr. Moreno of pulmonary services at [facility] History of dizziness and near syncope - no recent episodes were reported - Tilt table test done by Dr. Brito in June 2018 reported as positive with episode of hypotension and blood pressure was down to 43 mmHg improved with IV fluid. No further episodes of syncope. 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
[2023-08-16 12:38] VITALS: BP 150/74
--- NOTE | 2023-08-16 14:18 | Diagnostic Imaging Report ---
INDICATION: Increased oxygen demand. COMPARISON: 08/14/2023. FINDINGS: Frontal and lateral radiographic views of the chest were obtained and again show coarse interstitial opacities, greatest within the bilateral mid and lower lung gomes. Aeration is stable compared to prior exam. No large effusion or pneumothorax is seen. Cardiac silhouette and pulmonary vasculature are within normal limits. Osseous structures show no gross acute abnormalities. IMPRESSION: Stable aeration of the lungs as above. Dictated by: Dictated on workstation # [id number]
--- NOTE | 2023-08-16 15:02 | Discharge Summary ---
Diagnosis/Chief Complaint Date of Admission Aug 14, 2023 at 00:20 Date of Discharge 08/16/23 Admission Diagnosis Admission Diagnosis See problem list Discharge Diagnosis See above Problems/Diagnosis: (1) Hypoxia Assessment & Plan: - Pulmonary embolism ruled out with CTA - Echo results: Moderate concentric hypertrophy of the LV. EF is 60-65%. PA systolic pressure 45-50. - Continue using incentive spirometer - Continue ipratropium/albuterol. - Switched decadron to prednisone 40mg until 08/18 - Treating with cefepime and doxycycline for possible pneumonia - Continue trying to decrease O2 requirements. Patients baseline is no O2 supplementation. - O2 tests were ran and patient is using 4-6L at rest and satting in the lower 90's. He is using 6-8L when ambulating. - D/c Lasix Status: Acute (2) Pneumonia Assessment & Plan: - CTA chest was performed indicating worsened chronic interstitial lung disease. Cannot rule out superimposed infection. - CXR indicated new opacities may be secondary to infection - Contiue IV cefepime and doxycycline - Repeating chest xray Qualifiers: Status: Acute (3) Urinary tract infection Assessment & Plan: - Patient had a UA performed showing 10-15 WBCs. He also endorses dysuria on ROS. - It is questionable whether he has a UTI - Currently treating possible UTI and pneumonia with IV cefepime and doxycycline Qualifiers: Qualified Codes: N39.0 - Urinary tract infection, site not specified Status: Acute (4) Idiopathic pulmonary fibrosis Assessment & Plan: - Patient follows with Dr. Kim at for this - He is currently in a trial which he started in January. He is taking nebulized treprostinil for this trial. Holding this medication - Hold Of for his pulmonary fibrosis - Contact Dr. Kim at with any questions - CTA chest was performed indicating worsened chronic interstitial lung disease. Cannot rule out superimposed infection. Status: Chronic (5) Status post total knee replacement, right Assessment & Plan: - Schedule daily PT for knee rehab - Continue pain medication PRN for knee pain Status: Acute (6) Gout Assessment & Plan: - Continue CORRUGATOR allopurinol Status: Chronic (7) Depression Assessment & Plan: - Continue CORRUGATOR citalopram Qualifiers: Qualified Codes: F32.A - Depression, unspecified Status: Chronic (8) GERD (gastroesophageal reflux disease) Assessment & Plan: - Continue CORRUGATOR omeprazole Status: Chronic (9) Hyperkalemia Status: Resolved Resolution Date/Time: 08/15/23 @ 09:06 (10) Congested nose Assessment & Plan: - Order nasal saline irrigation Status: Chronic Chief Complaint/HPI Chief Complaint/HPI Patient presented to ED on 08/13 due to worsening shortness of breath. He had a knee replacement done on 08/09 and was discharged from the hospital on 08/10 with 2L O2 to use during ambulation. Patient has a history of idiopathic pulmonary fibrosis but this was a change from his baseline, as he has never required home O2 before. He said that on 08/13 he started to become very short of breath and could not even walk to the bathroom. His O2 saturation was 91% while sitting on 2L, 82% walking on 2L, and it would drop in the 60's if he was not using his oxygen. Endorses shortness of breath, chronic cough that has become wet in the last couple of days, dysuria, night sweats, back pain. and one episode of hemoptysis. Denies chest pain, abdominal pain, constipation, diarrhea, or constipation. Discharge Summary-Simple/Stand Consultations Discharge Physical Examination Allergies: Coded Allergies: hydrocodone (Verified Allergy, Unknown, Itching, 08/02/23) oxycodone (Verified Allergy, Unknown, Itching, 08/02/23) Vitals & I&Os Vital Sign - Last 12Hours Date Time Temp Pulse Resp B/P (MAP) Pulse Ox O2 Delivery O2 Flow Rate FiO2 08/16/23 12:38 37.1 82 17 150/74 (99) 95 Nasal Cannula 4.00 Intake and Output 08/15/23 23:59 Intake Total 2030 ml Output Total 1800 ml Balance 230 ml Hospital Course See final discharge diagnosis. Radiology Reviewed NAME: BETO BURNS [facility] REC#: [id number] PT STATUS: REG ER : 1950 PHYSICIAN: BRITTANY POE MD ADMIT DATE: 08/13/23/ER FS Signed Date of Exam:08/13/23 CT ANGIO CHEST W (R/O PE) INDICATION: Shortness of air, 10 days postop. COMPARISON: None. FINDINGS: Pulmonary arterial branches are widely patent and well opacified. No pulmonary arterial embolus. Thoracic aorta patent, nonaneurysmal and is nonacute. There is progressive five lobe interstitial lung disease with subpleural honeycombing greatest in the lung bases. Bronchiectasis and patchy multifocal groundglass opacities. The groundglass densities are likely also progressive chronic lung disease but an acute infectious component could not be excluded given the progression from 2019. Heart size enlarged but unchanged. No pleural or pericardial effusion. No airspace consolidation or bronchograms. There is no pneumothorax. IMPRESSION: 1. Worsened chronic interstitial lung disease which likely also accounts for the new groundglass opacities; however, nonspecific infectious disease superimposed could not be excluded. 2. No PE or acute aortic pathology. No effusion or pneumothorax. Dictated by: Dictated on workstation # [id number] Dict: 08/13/231917 Trans: 08/13/231948 PJYg [id number] Interpreted by: TARIQ STEVENS Electronically signed by: TARIQ STEVENS 08/13/231948 NAME: BETO BURNS [facility] REC#: [id number] PT STATUS: REG ER : 1950 PHYSICIAN: BRITTANY POE MD ADMIT DATE: 08/13/23/ER FS Signed Date of Exam:08/13/23 CHEST 1 VIEW AP/PA ONLY INDICATION: Shortness of breath, postop. COMPARISON: 08/18/2021. FINDINGS: There are new patchy multifocal nodular interstitial type infiltrates consistent with nonspecific infectious disease or heterogeneous pulmonary edema. The heart size is within normal limits. There is no effusion or pneumothorax. IMPRESSION: New multifocal pulmonary opacities favored to reflect pneumonia. Stable heart size with no pleural pathology. Dictated by: Dictated on workstation # [id number] Dict: 08/13/231815 Trans: 08/13/231853 PJE [id number] Interpreted by: TARIQ STEVENS Electronically signed by: TARIQ STEVENS 08/13/231853 Discharge Instructions to patient/family Please see electronic discharge instructions given to patient. Discharge Medications Reviewed and agree with Discharge Medication list on patient's Discharge Instruction sheet LEE MONET MD Aug 16, 2023 15:02
[2023-08-16] MEDS ORDERED: PRD20T PO (15:08)
[2023-08-16] MEDS ORDERED: DOXY100T2 PO (15:08)
--- NOTE | 2023-08-16 15:34 | Discharge Summary ---
Discharge Summary Instructions for Patient Via [facility], Assessment/Instructions Acute on Chronic Respiratory failure with hypoxia Idopathic Pulmonary Fibrosis Post op PNA Physician to follow Patient: JUAQUIN Discharge Diet for Home: Cardiac Diet Hospital Course Date of Admission: Aug 14, 2023 at 00:20 Admission Diagnosis : Family Physician/Provider: Bryan Phelps MD Date of Discharge: 08/16/23 Discharge Diagnosis: Acute on Chronic Respiratory Failure with hypoxia Idopathic Pulmonary Fibrosis Post op PNA Labs and Pending Lab Test: Laboratory Tests 08/16/23 05:40: White Blood Count 9.7, Red Blood Count 3.61L, Hemoglobin 10.6L, Hematocrit 32L, Mean Corpuscular Volume 89, Mean Corpuscular Hemoglobin 29, Mean Corpuscular Hemoglobin Concent 33, Red Cell Distribution Width 14.6H, Platelet Count 266, Mean Platelet Volume 9.2, Immature Granulocyte % (Auto) 1, Neutrophils (%) (Auto) 75, Lymphocytes (%) (Auto) 10L, Monocytes (%) (Auto) 10, Eosinophils (%) (Auto) 4, Basophils (%) (Auto) 0, Neutrophils # (Auto) 7.2, Lymphocytes # (Auto) 1.0, Monocytes # (Auto) 1.0, Eosinophils # (Auto) 0.4H, Basophils # (Auto) 0.0, Immature Granulocyte # (Auto) 0.1, Sodium Level 138, Potassium Level 4.7, Chloride Level 106, Carbon Dioxide Level 24, Anion Gap 8, Blood Urea Nitrogen 29H, Creatinine 1.27, Estimat Glomerular Filtration Rate 60, BUN/Creatinine Ratio 23, Glucose Level 95, Calcium Level 8.5, Corrected Calcium 9.3, Phosphorus Level 3.3, Magnesium Level 2.1, Total Bilirubin 0.7, Aspartate Amino Transf (AST/SGOT) 20, Alanine Aminotransferase (ALT/SGPT) 13, Alkaline Phosphatase 34L, Total Protein 5.8L, Albumin 3.0L Microbiology 08/14/23 MRSA Screen - Final, Complete MRSA not isolated 08/13/23 Urine Culture - Final, Complete NO GROWTH 08/13/23 Blood Culture - Preliminary, Resulted Home Meds Active Reported Tylenol Extra Strength (Acetaminophen) 500 Mg Tablet 1,000 Mg PO Q8H PRN [Treprostinil Trial] 12 Ea INH QID Diphenoxylate-Atrop 2.5-0.025 (Diphenoxylate HCl/Atropine) 2.5 Mg-0.025 Mg Tablet 1 Each PO Q6H PRN Omeprazole 20 Mg Capsule.dr 20 Mg PO HS Meloxicam 15 Mg Tablet 15 Mg PO HS Aspirin EC (Aspirin) 81 Mg Tablet.dr 81 Mg PO HS Citalopram HBr (Citalopram Hydrobromide) 20 Mg Tablet 20 Mg PO DAILY Tramadol HCl 50 Mg Tablet 100 Mg PO Q6H PRN TAKES 2 (50MG) TABS Hydromorphone HCl 4 Mg Tablet 4 Mg PO Q6H PRN Ofev (Nintedanib Esylate) 100 Mg Capsule 100 Mg PO BID Flonase Allergy Relief (Fluticasone Propionate) 50 Mcg/Actuation [place].susp 1-2 Sprays NSEACH HS Flomax (Tamsulosin HCl) 0.4 Mg Cap 0.4 Mg PO HS Allopurinol 300 Mg Tablet 150 Mg PO HS TAKES (300MG) TABLET Cetirizine HCl 10 Mg Tablet 10 Mg PO DAILY Zolpidem Tartrate 5 Mg Tablet 5 Mg PO HS Patient Allergies: Coded Allergies: hydrocodone (Verified Allergy, Unknown, Itching, 08/02/23) oxycodone (Verified Allergy, Unknown, Itching, 08/02/23) Height (Feet): 5 Height (Inches): 7.00 Weight (Pounds): 200 Weight (Ounces): 0.0 New Medications: Doxycycline Hyclate (Doxycycline Hyclate) 100 Mg Tablet 100 MG PO BID@07,17, #10 TAB Prednisone (Prednisone) 20 Mg Tab 40 MG PO DAILY@0700, #11 TAB Take 2 tab x 3 days then Take 1 tab x 3 days then 1/2 tab x 4 days Continued Medications: Acetaminophen (Tylenol Extra Strength) 500 Mg Tablet 1000 MG PO Q8H PRN for PAIN-MILD (1-4), TAB Allopurinol (Allopurinol) 300 Mg Tablet 150 MG PO HS, TAB TAKES (300MG) TABLET Aspirin (Aspirin EC) 81 Mg Tablet.dr 81 MG PO HS, TAB Cetirizine HCl (Cetirizine HCl) 10 Mg Tablet 10 MG PO DAILY, TAB Citalopram Hydrobromide (Citalopram HBr) 20 Mg Tablet 20 MG PO DAILY, TAB Diphenoxylate HCl/Atropine (Diphenoxylate-Atrop 2.5-0.025) 2.5 Mg-0.025 Mg Tablet 1 EACH PO Q6H PRN for DIARRHEA, TAB Fluticasone Propionate (Flonase Allergy Relief) 50 Mcg/Actuation [place].susp 1-2 SPRAYS NSEACH HS, EACH Hydromorphone HCl (Hydromorphone HCl) 4 Mg Tablet 4 MG PO Q6H PRN for PAIN-SEVERE (8-10), TAB Nintedanib Esylate (Ofev) 100 Mg Capsule 100 MG PO BID, CAP Omeprazole (Omeprazole) 20 Mg Capsule.dr 20 MG PO HS, CAP Tamsulosin HCl (Flomax) 0.4 Mg Cap 0.4 MG PO HS, CAP Tramadol HCl (Tramadol HCl) 50 Mg Tablet 100 MG PO Q6H PRN for PAIN-MODERATE (5-7), TAB TAKES 2 (50MG) TABS [Treprostinil Trial] () 12 EA INH QID Zolpidem Tartrate (Zolpidem Tartrate) 5 Mg Tablet 5 MG PO HS, TAB Discontinued Medications: Meloxicam (Meloxicam) 15 Mg Tablet 15 MG PO HS, TAB Home Health Need/Face to Face Date of Face to Face: Aug 16, 2023 Clinical Findings: Shortness of breath, Unsteady gait I have seen Pt [id number]: Yes Discharged To: Home Diagnosis/Conditions: See above Patient is Homebound due to: Hermilo fall risk due to instabilty, Shortness of breath/distress Homebound Status Due to the above stated illness, injury or surgical procedure (medical condition or diagnosis) and associated clinical findings, the patient is homebound because of his/her inability to leave home except with aid of a supportive device and/or person AND leaving the home requires a considerable and taxing effort or is medically contraindicated. Pt req the following assistanc: Aid of another person, [facility] Nursing Orders Home Health Services Order: Nursing Services, Physical Therapy-Evaluate & Treat Home Health Infusion Therapy Line Start Date: Aug 13, 2023 Certify Stmt I certify that this patient is under my care and that I, a nurse practitioner or a physician; a construction assistant working with me, had a face to face encounter that - meets the physician face to face encounter requirements with this patient as dated. Discharge Physical Exam General: Alert, Oriented X3, Cooperative, Mild Distress (with minimal exertion) Lungs: Clear to Auscultation, Normal Air Movement Heart: Regular Rate, No Murmurs Abdomen: Normal Bowel Sounds, Soft, No Tenderness, No Masses Extremities: Other (mild swelling BLE) Neuro: Normal Speech LEE MONET MD Aug 16, 2023 15:04
[2023-08-16 16:00] VITALS: BP 142/53
--- NOTE | 2023-08-18 09:34 | Physician Query Clarification ---
PQ-Uncertain Diagnosis Admission/Discharge Admission Date: Aug 14, 2023 at 00:20 Discharge Date: Aug 16, 2023 at 16:30 Dr. Jackson, The medical record reflects the following clinical scenario: History/Risk Factors: acute on chronic hypoxic respiratory failure, pneumonia, idiopathic pulmonary fibrosis Clinical Findings: BNP 2014.0, EF 60.65%, HFpEF Treatment: 40 mg IV Lasix Question: Is acute diastolic CHF a clinically valid diagnosis? Acute HFpEF was documented in the consult by Dr. Story with no further docu mentation in the medical record. Please document a response in Progress Note or Discharge Summary. 1. Yes, clinically valid, condition resolved. 2. No, condition ruled out. 3. Other, with explanation of clinical findings. 4. Undetermined, no explanation for clinical findings. PHYSICIAN RESPONSE Diagnosis clinically valid: Undetermined (Multifactoral as patient did not seem fluid overloaded that would be consistent with acute CHF) In responding to this query, please exercise your independent professional judgment. The purpose of this communication is to more accurately reflect the complexity of your patients condition. The fact that a question is asked does not imply that any particular answer is desired or expected. Thank you for your timely response to this clarification. Requestors name: Marta THIS PHYSICIAN QUERY FORM IS A PERMANENT PART OF THE MEDICAL RECORD MARTA ZAVALA Aug 18, 2023 09:34 LEE JACKSON MD Aug 31, 2023 17:57
== END 2023-08-16 16:30 | disposition home health service (06) | DRG 189 ==
LOC: EDUNIT# 17:48 → ER FS 17:52 → ICU 08-14 00:20 → 4TH 08-14 14:10
PROVIDERS: ADMIT Internal Medicine; ATTEND Family Medicine
DX: J96.21 Acute and chronic respiratory failure with hypoxia (principal); J18.9 Pneumonia, unspecified organism; I50.32 Chronic diastolic (congestive) heart failure; N39.0 Urinary tract infection, site not specified; J84.112 Idiopathic pulmonary fibrosis; E87.5 Hyperkalemia; I49.5 Sick sinus syndrome; I34.0 Nonrheumatic mitral (valve) insufficiency; G47.30 Sleep apnea, unspecified; I48.91 Unspecified atrial fibrillation; K21.9 Gastro-esophageal reflux disease without esophagitis; M10.9 Gout, unspecified; F32.A Depression, unspecified; F41.9 Anxiety disorder, unspecified; N40.0 Benign prostatic hyperplasia without lower urinary tract symptoms; M19.90 Unspecified osteoarthritis, unspecified site; H54.3 Unqualified visual loss, both eyes; Z96.651 Presence of right artificial knee joint; Z20.822 Contact with and (suspected) exposure to COVID-19; Z85.46 Personal history of malignant neoplasm of prostate; I11.0 Hypertensive heart disease with heart failure; Z79.899 Other long term (current) drug therapy; Z79.82 Long term (current) use of aspirin; Z79.1 Long term (current) use of non-steroidal anti-inflammatories (NSAID); Z88.5 Allergy status to narcotic agent
CPT/HCPCS: 36415; 71045; 71046; 71275; 80048; 80053; 81000; 83605; 83735; 83880; 84100; 84484; 85007; 85025; 85027; 85379; 85610; 85730; 87040; 87081; 87088; 87636; 93005; 93306; 94640; 94664; 94760; 96374; 96375; Q9967